=== PATIENT | female | born 1985 | race Caucasian/White ===

== ENCOUNTER 2020-09-26 11:46 | Outpatient (REF) | payer OTHER, SELFPAY ==
[2020-09-26 13:23] LABS: MANUAL DIFF FLAG NO
[2020-09-26 13:35] LABS: Basophils Percent Auto 0.5 % (0-2); Eosinophils Absolute Auto 0.1 X10*3/uL (0.0-0.4); Eosinophils Percent Auto 1.6 % (0-4); Hematocrit 36.1 % (37-47); Hemoglobin 11.7 g/dl (12.0-16.0); Imm Gran Abs Auto 0.02 X10*3/uL (0.00-0.03); Imm Gran Pct Auto 0.3 % (0.0-0.4); Lymphocytes Absolute Auto 1.6 X10*3/uL (1.2-4.9); Lymphocytes Percent Auto 20.3 % (20-40); Mean Corpuscular HGB Conc 32.4 g/dl (31.0-35.0); Mean Corpuscular Volume 95.5 fL (80-98); Mean Platelet Volume 8.8 fL (9.4-12.3); Monocytes Absolute Auto 0.3 X10*3/uL (0.1-1.2); Monocytes Percent Auto 4.1 % (2-11); Neutrophils Absolute Auto 5.8 X10*3/uL (2.0-8.3); Neutrophils Percent Auto 73.2 % (45-73); Platelet Count 427 X10*3/uL (160-400); Red Blood Count 3.78 X10*6/uL (4.20-5.50); Red Cell Distribution Width 13.7 % (11.0-16.0)
[2020-09-26 13:49] LABS: Estimated Average Glucose 105 mg/dL; Hemoglobin A1c % 5.3 %
[2020-09-26 14:00] LABS: Alanine Aminotransferase 10 U/L (0-31); Albumin Level 4.3 g/dL (3.5-5.0); Alkaline Phosphatase 73 U/L (39-117); Anion Gap 14 (12-20); Aspartate Amino Transferase 13 U/L (5-31); Bilirubin Total 0.5 mg/dL (0.0-1.0); Blood Urea Nitrogen 10 mg/dL (9-16); Calcium 8.5 mg/dL (8.4-10.2); Carbon Dioxide 26 mmol/L (22-29); Chloride 105 mmol/L (96-108); Cholesterol 177 mg/dL; Estimated Glomerular Filt Rate > 60; Glucose Random 84 mg/dL (60-115); HDL Cholesterol 60 mg/dL; LDL Cholesterol Calculated 101 mg/dl; Potassium 4.1 mmol/l (3.3-5.1); Sodium 141 mmol/L (135-145); Total Protein 7.2 g/dL (6.5-8.0); Triglycerides 80 mg/dL
[2020-09-27 09:22] LABS: Rubella IgG Antibody 1.47 index
[2020-09-29 08:30] LABS: HBS Num1 112.25 mIU/mL (0-7.99); ~Hepatitis B Surface Antibody REACTIVE (Nonreactive)
[2020-09-29 19:08] LABS: Rubeola IgG (Measles) >300.00 AU/mL
[2020-09-29 19:11] LABS: TS Negative Control Passed; TS Panel A 0; TS Panel B 0; TS Positive Control Passed; TSpotTB Negative (SeeBelow)
== END 2020-09-26 11:47 | disposition home or self-care (01) ==
LOC: HO.LAB 11:46
PROVIDERS: PCP Internal Medicine; Visit Provider Internal Medicine
DX: E28.2 Polycystic ovarian syndrome (principal); E66.01 Morbid (severe) obesity due to excess calories; R73.01 Impaired fasting glucose
CPT/HCPCS: 36415; 80053; 80061; 83036; 85025; 86481; 86706; 86735; 86762; 86765; 86787

== ENCOUNTER → 2020-10-07 09:03 | Outpatient (BNVA) | payer OTHER, SELFPAY | PROVIDERS: PCP Internal Medicine; Referring Provider Internal Medicine; Visit Provider Physician Assistant | DX: Z76.89 Persons encountering health services in other specified circumstances (principal) ==

== ENCOUNTER 2020-10-08 10:05 | Outpatient (REF) | payer OTHER, SELFPAY ==
[2020-10-08 15:59] LABS: CT PCR NOT DETECTED (Not Detect.); NG PCR NOT DETECTED (Not Detect.)
[2020-10-09 08:53] LABS: BV Int Neg Control Negative (Negative); BV Int Pos Control Positive (Positive)
== END 2020-10-08 10:06 | disposition home or self-care (01) ==
LOC: HO.LAB 10:05
PROVIDERS: Visit Provider Advanced Practice Midwife
DX: Z01.419 Encounter for gynecological examination (general) (routine) without abnormal findings (principal); Z20.2 Contact with and (suspected) exposure to infections with a predominantly sexual mode of transmission; E66.01 Morbid (severe) obesity due to excess calories; Z80.3 Family history of malignant neoplasm of breast; Z80.41 Family history of malignant neoplasm of ovary; Z97.5 Presence of (intrauterine) contraceptive device
CPT/HCPCS: 87480; 87491; 87510; 87591; 87660; 99395

== ENCOUNTER 2020-10-27 19:55 | Emergency (ER) | payer OTHER, SELFPAY ==
[2020-10-27 19:57] VITALS: BP 149/96; PULSE 112; RESP 15; TEMP 36.8; O2SAT 98; BMI 40.6
--- NOTE | 2020-10-27 20:36 | ED_ITS ---
HPI - Abdominal Pain General Chief Complaint: Abdominal Pain Stated Complaint: abdominal pain Time Seen by Provider: 10/27/20 20:36 Source: patient Mode of arrival: ambulatory Limitations: no limitations History of Present Illness HPI narrative: Urine chronic abdominal pain over 1 year duration status post cholecystectomy 3 years ago pain is mostly in the epigastric and right upper area going to the right lower without any nausea vomiting or diarrhea pain does not get worse after eating patient was seen with supervisor tumblers on plan to get ultrasound but not done yet MD elicited complaint: abdominal pain Pertinent past history: none Onset (ago): year(s) Pain Consistency: intermittent Location: RUQ and RLQ Severity: mild Quality: cramping Radiation: RUQ and RLQ Associated symptoms: nausea Related Data Previous Rx's Medication Instructions Recorded dicyclomine 20 mg PO QID PRN #20 tab 10/27/20 Allergies Allergy/AdvReac Type Severity Reaction Status Date / Time banana [BANANA] Allergy Unknown STOMACH Verified 10/08/20 10:17 PAINS metformin [METFORMIN] Allergy Unknown NAUSEA, Verified 10/08/20 10:17 DIARRHEA, stomach upset milk [MILK] Allergy Unknown CAN NOT Verified 10/08/20 10:17 TOLERATE Review of Systems Review of Systems REVIEW OF SYSTEMS: Pertinent positives and negatives are stated above in the history. GEN: no fevers, chills, fatigue HEENT: no nasal congestion, sore throat, ear pain NEURO: no headache, dizziness, focal weakness PULM: no cough, shortness of breath CV: no chest pain, palpitations, LE edema ABD: no vomiting, diarrhea : no dysuria, urgency, frequency SKIN: no rash ROS otherwise negative x 10 Physical Exam Vital Signs: Vital Signs: Last Vital Signs Temp 98.2 F 10/27/20 22:57 Pulse 84 10/27/20 22:57 Resp 16 10/27/20 22:57 BP 124/71 10/27/20 22:57 Pulse Ox 97 10/27/20 22:57 Body Mass Index 40.6 Appearance: Alert. Oriented X3. No acute distress. Eyes: Pupils equal, round and reactive to light. ENT: Pharynx normal. Neck: Normal inspection. Neck supple. CVS: Normal heart rate and rhythm. Pulses normal. Respiratory: No respiratory distress. Breath sounds normal. Abdomen: Soft and mild tenderness right upper quadrant and right mid quadrant no rebound tenderness no guarding no mass palpable no CVA tenderness. Skin: Skin warm and dry. Normal skin color. Normal skin turgor. Extremities: No lower extremity edema. Good range of movement Neuro: Oriented X 3. No motor deficit. No sensory deficit. MDM - Abdominal Pain MDM Narrative Medical decision making narrative: Patient has chronic abdominal pain CT scan negative for any acute pathology labs are stable discharge her home on [place] Differential Diagnosis Differential diagnosis: Likely abdominal pain Medical Records Attestation: I reviewed the patient's medical records. Lab Data Attestation: I reviewed the patient's lab results. Result diagrams: 10/27/20 21:10 10/27/20 21:10 Labs: Lab Results 10/27/20 10/27/20 Range/Units 21:10 21:10 WBC 8.5 (4.8-10.8) X10*3/uL RBC 3.55 L (4.20-5.50) X10*6/uL Hgb 11.2 L (12.0-16.0) g/dl Hct 33.1 L (37-47) % MCV 93.2 (80-98) fL MCH 31.5 (27.0-33.0) pg MCHC 33.8 (31.0-35.0) g/dl RDW 13.7 (11.0-16.0) % Plt Count 327 (160-400) X10*3/uL MPV 8.9 L (9.4-12.3) fL Immature Gran % (Auto) 0.2 (0.0-0.4) % Neut % (Auto) 67.4 (45-73) % Lymph % (Auto) 26.0 (20-40) % [place] % (Auto) 4.8 (2-11) % Eos % (Auto) 1.1 (0-4) % Baso % (Auto) 0.5 (0-2) % Lymph # (Auto) 2.2 (1.2-4.9) X10*3/uL [place] # (Auto) 0.4 (0.1-1.2) X10*3/uL Eos # (Auto) 0.1 (0.0-0.4) X10*3/uL Baso # (Auto) 0.0 (0.0-0.2) X10*3/uL Abs Immat Gran (auto) 0.02 (0.00-0.03) X10*3/uL Absolute Neuts (auto) 5.7 (2.0-8.3) X10*3/uL Absolute Nucleated RBC 0.000 (0.0-0.012) X10*3/uL Nucleated RBC % (auto) 0.0 (0.0-0.2) /100WBC Sodium 139 (135-145) mmol/L Potassium 3.5 (3.3-5.1) mmol/l Chloride 104 (96-108) mmol/L Carbon Dioxide 22 (22-29) mmol/L Anion Gap 17 (12-20) BUN 9 (9-16) mg/dL Creatinine 0.65 (0.5-1.4) mg/dL Estim Creat Clear Calc 145.9 Estimated GFR > 60 Random Glucose 80 (60-115) mg/dL Calcium 8.4 (8.4-10.2) mg/dL Total Bilirubin 0.2 (0.0-1.0) mg/dL Direct Bilirubin < 0.2 (0.0-0.5) mg/dL AST 14 (5-31) U/L ALT 8 (0-31) U/L Alkaline Phosphatase 68 (39-117) U/L Total Protein 6.9 (6.5-8.0) g/dL Albumin 4.1 (3.5-5.0) g/dL Lipase 19 (8-78) U/L Discharge Plan Discharge Clinical Impression: Irritable bowel syndrome, Abdominal pain Patient Disposition: Home, Self-Care Instructions: Irritable Bowel Syndrome (ED) Additional Instructions: Drink plenty of fluids and have fibers, follow up with supervisor tumblers Prescriptions: New dicyclomine 20 mg tablet 20 mg PO QID PRN (Reason: abdominal pain) Qty: 20 RF: 0 Interventions: ED Discharge Assessment Last Done: 10/27/20 22:58 Discharge Date/Time: 10/27/20 22:59 [facility] Past Medical History Medical History Abdominal pain WPW (Xjpbd-Kosxsprod-Xicqq syndrome) Surgical History Hx of cholecystectomy Family History Family History Mother Cardiac abnormality Social History Social History Alcohol intake: current Alcohol intake frequency: holidays/special occasions only Smoking Status: Never smoker Substance Use Type: Marijuana Advance Directives: No Advance Directives Information Provided: Yes Current occupational status: unemployed Gender identity: female
--- NOTE | 2020-10-27 20:43 | CT_ITS ---
EXAMINATION: CT ABDOMEN AND PELVIS WITHOUT CONTRAST CLINICAL INFORMATION: Chronic right-sided pain with question of inflammatory bowel disease or common bile duct stone. COMPARISON: Pelvic ultrasound 07/08/2020, HIDA scan 12/05/2014, abdominal ultrasound 11/24/2012. TECHNIQUE: Multidetector volumetric imaging was performed from the superior aspect of the liver through the pubic symphysis. Sagittal and coronal reformatted images were obtained on the technologist's workstation. This CT examination was performed using dose optimization techniques as appropriate, variously including the following: *Automated exposure control. *Adjustment of mA and/or kV according to patient size (this includes techniques or standardized protocols for targeted exams where dose is matched to indication/reason for exam; i.e. extremities or head). *Use of iterative reconstruction technique. DLP: 907 mGy-cm FINDINGS: LUNG BASES: The visualized lung bases are unremarkable. LIVER, GALLBLADDER, AND BILIARY TREE: The liver is normal in size, shape, and attenuation. No focal hepatic lesion or biliary ductal dilatation is present. Status post cholecystectomy. PANCREAS: Unremarkable. SPLEEN: Unremarkable. ADRENAL GLANDS: Unremarkable. KIDNEYS AND URETERS: The kidneys are normal in size, shape, and attenuation. No hydronephrosis, hydroureter, or calculi seen. No perinephric stranding. BLADDER: Unremarkable. GASTROINTESTINAL TRACT: The small and large bowel are unremarkable. There is some mild submucosal fat infiltration in the ascending colon which could be secondary to chronic inflammation but is a non-specific finding. The appendix is unremarkable. ABDOMINAL WALL: No significant hernia is appreciated. A tiny periumbilical hernia is seen containing only fat. LYMPH NODES: No retroperitoneal lymphadenopathy. VASCULAR: Unremarkable. PELVIC VISCERA: An IUD is present in an anteverted uterus. Normal-appearing bilateral ovaries are seen. No free intraperitoneal fluid or abnormal adnexal mass is seen. OSSEOUS STRUCTURES: Unremarkable. CT/CT abdomen pelvis wo con IMPRESSION: No significant abnormality.
[2020-10-27 21:16] LABS: MANUAL DIFF FLAG NO
[2020-10-27 21:19] LABS: Basophils Percent Auto 0.5 % (0-2); Eosinophils Absolute Auto 0.1 X10*3/uL (0.0-0.4); Eosinophils Percent Auto 1.1 % (0-4); Hematocrit 33.1 % (37-47); Hemoglobin 11.2 g/dl (12.0-16.0); Imm Gran Abs Auto 0.02 X10*3/uL (0.00-0.03); Imm Gran Pct Auto 0.2 % (0.0-0.4); Lymphocytes Absolute Auto 2.2 X10*3/uL (1.2-4.9); Mean Corpuscular HGB Conc 33.8 g/dl (31.0-35.0); Mean Corpuscular Hemoglobin 31.5 pg (27.0-33.0); Mean Corpuscular Volume 93.2 fL (80-98); Mean Platelet Volume 8.9 fL (9.4-12.3); Monocytes Absolute Auto 0.4 X10*3/uL (0.1-1.2); Monocytes Percent Auto 4.8 % (2-11); Neutrophils Absolute Auto 5.7 X10*3/uL (2.0-8.3); Neutrophils Percent Auto 67.4 % (45-73); Platelet Count 327 X10*3/uL (160-400); Red Blood Count 3.55 X10*6/uL (4.20-5.50); Red Cell Distribution Width 13.7 % (11.0-16.0); White Blood Count 8.5 X10*3/uL (4.8-10.8)
[2020-10-27 21:44] LABS: Alanine Aminotransferase 8 U/L (0-31); Albumin Level 4.1 g/dL (3.5-5.0); Alkaline Phosphatase 68 U/L (39-117); Anion Gap 17 (12-20); Aspartate Amino Transferase 14 U/L (5-31); Bilirubin Direct < 0.2 mg/dL (0.0-0.5); Bilirubin Total 0.2 mg/dL (0.0-1.0); Blood Urea Nitrogen 9 mg/dL (9-16); Calcium 8.4 mg/dL (8.4-10.2); Carbon Dioxide 22 mmol/L (22-29); Chloride 104 mmol/L (96-108); Creatinine Clr Calc Pharmacy 145.9; Estimated Glomerular Filt Rate > 60; Glucose Random 80 mg/dL (60-115); Lipase 19 U/L (8-78); Potassium 3.5 mmol/l (3.3-5.1); Sodium 139 mmol/L (135-145); Total Protein 6.9 g/dL (6.5-8.0)
[2020-10-27] MEDS: Dicyclomine HCl 10 MG CAPSULE 20 MG PO (21:58)
[2020-10-27 22:57] VITALS: BP 124/71; PULSE 84; RESP 16; TEMP 36.8; O2SAT 97
== END 2020-10-27 22:59 | disposition home or self-care (01) ==
PROVIDERS: Emergency Provider Internal Medicine; PCP Internal Medicine
DX: K58.9 Irritable bowel syndrome, unspecified (principal); R10.11 Right upper quadrant pain; R10.31 Right lower quadrant pain; Z90.49 Acquired absence of other specified parts of digestive tract
CPT/HCPCS: 36415; 74176; 80048; 80076; 83690; 85025; 99283; 99284

== ENCOUNTER → 2020-11-12 08:17 | Outpatient (BNVA) | payer OTHER, SELFPAY | PROVIDERS: PCP Internal Medicine; Visit Provider Physician Assistant | DX: Z76.89 Persons encountering health services in other specified circumstances (principal) ==

== ENCOUNTER 2020-11-26 14:30 | Outpatient (REF) | payer OTHER, SELFPAY | END 2020-11-26 14:31 | disposition home or self-care (01) | LOC: HO.LAB 14:30 | PROVIDERS: PCP Internal Medicine; Visit Provider Internal Medicine | DX: Z20.822 Contact with and (suspected) exposure to COVID-19 (principal) | CPT/HCPCS: 36415; C9803; U0003 ==

== ENCOUNTER → 2021-04-01 09:47 | Outpatient (BNVA) | payer OTHER, SELFPAY | PROVIDERS: PCP Internal Medicine; Visit Provider Physician Assistant ==

== ENCOUNTER 2021-04-21 11:18 | Outpatient (REF) | payer OTHER, SELFPAY ==
[2021-04-21 12:11] LABS: MANUAL DIFF FLAG NO
[2021-04-21 12:19] LABS: Basophils Percent Auto 0.3 % (0-2); Eosinophils Absolute Auto 0.2 X10*3/uL (0.0-0.4); Hematocrit 35.5 % (37-47); Hemoglobin 11.8 g/dl (12.0-16.0); Imm Gran Abs Auto 0.03 X10*3/uL (0.00-0.03); Imm Gran Pct Auto 0.3 % (0.0-0.4); Lymphocytes Absolute Auto 1.9 X10*3/uL (1.2-4.9); Lymphocytes Percent Auto 20.9 % (20-40); Mean Corpuscular HGB Conc 33.2 g/dl (31.0-35.0); Mean Corpuscular Hemoglobin 31.6 pg (27.0-33.0); Mean Corpuscular Volume 94.9 fL (80-98); Mean Platelet Volume 9.1 fL (9.4-12.3); Monocytes Absolute Auto 0.4 X10*3/uL (0.1-1.2); Monocytes Percent Auto 4.9 % (2-11); Neutrophils Absolute Auto 6.4 X10*3/uL (2.0-8.3); Neutrophils Percent Auto 71.6 % (45-73); Platelet Count 344 X10*3/uL (160-400); Red Blood Count 3.74 X10*6/uL (4.20-5.50); White Blood Count 8.9 X10*3/uL (4.8-10.8)
[2021-04-21 13:09] LABS: Thyroid Stimulating Hormone 0.84 uIU/mL (0.32-4.0)
[2021-04-21 13:49] LABS: Alanine Aminotransferase 15 U/L (0-31); Albumin Level 4.5 g/dL (3.5-5.0); Alkaline Phosphatase 69 U/L (39-117); Anion Gap 15 (12-20); Aspartate Amino Transferase 27 U/L (5-31); Blood Urea Nitrogen 6 mg/dL (9-16); Calcium 9.1 mg/dL (8.4-10.2); Carbon Dioxide 24 mmol/L (22-29); Chloride 102 mmol/L (96-108); Cholesterol 199 mg/dL; Estimated Glomerular Filt Rate > 60; Glucose Random 83 mg/dL (60-115); HDL Cholesterol 43 mg/dL; LDL Cholesterol Calculated 137 mg/dl; Potassium 3.9 mmol/L (3.3-5.1); Sodium 137 mmol/L (135-145); Total Protein 7.4 g/dL (6.5-8.0); Triglycerides 98 mg/dL
== END 2021-04-21 11:19 | disposition home or self-care (01) ==
LOC: HO.LAB 11:18
PROVIDERS: Absent Provider Advanced Practice Midwife; PCP Internal Medicine; Referring Provider Physician Assistant; Visit Provider Internal Medicine
DX: D50.8 Other iron deficiency anemias (principal); I10 Essential (primary) hypertension; R10.11 Right upper quadrant pain; R73.01 Impaired fasting glucose; R74.01 Elevation of levels of liver transaminase levels
CPT/HCPCS: 36415; 80053; 80061; 84443; 85025

== ENCOUNTER 2021-05-05 09:36 | Outpatient (REF) | payer OTHER, SELFPAY ==
--- NOTE | ~2021-05-05 | US_ITS ---
EXAMINATION: US COMPLETE ABDOMEN WITH LIVER ELASTOGRAPHY CLINICAL INFORMATION: Obesity COMPARISON: Previous CT of the abdomen and pelvis October 2020 TECHNIQUE: Real-time imaging of the abdominal viscera. Noninvasive ultrasound liver fibrosis assessment is performed using Kelly ElastPQ point quantification shear wave elastography (pSWE) with a C5-2 MHz transducer. Multiple elastography samples are obtained. FINDINGS: PANCREAS: Normal. ABDOMINAL AORTA: The proximal, middle, and distal aortic segments are normal in caliber. INFERIOR VENA CAVA: Visualized portions are normal. LIVER: Liver echotexture is slightly increased. The liver demonstrates normal size and contour. No focal lesion or intrahepatic biliary duct dilatation. The right lobe measures 16 cm in length. The left lobe measures 12 cm in length. Portal flow is normal/hepatopedal Shear wave liver elastography median stiffness is 1.55 m/s (reference: normal median stiffness is 1.3 m/s or less). IQR/median stiffness to assess sampling precision is 0.1 (reference: good quality data set is IQR/median stiffness of 0.15 or less). GALLBLADDER: Surgically removed COMMON BILE DUCT: Normal in caliber measuring 0.4 cm in diameter. RIGHT KIDNEY: Normal. No hydronephrosis. No renal calculi or focal parenchymal lesions. The kidney measures 11.5 cm in maximum dimension. LEFT KIDNEY: Normal. No hydronephrosis. No renal calculi or focal parenchymal lesions. The kidney measures 11.8 cm in maximum dimension. SPLEEN: Normal. The spleen measures 9.4 cm in maximum dimension. FREE FLUID: None. US/US abdomen comp w elastography IMPRESSION: 1. Impression: Echogenic liver probably representing fatty infiltration. Postcholecystectomy. 2. Liver elastography: Adequate sampling. In the absence of other known clinical signs, rules out compensated advanced chronic liver disease. REFERENCE: Society of Radiologists in Ultrasound Liver Stiffness Thresholds (2020): LIVER STIFFNESS THRESHOLDS: *Liver Stiffness equal or less than 1.3 m/s: High probability of being normal. *Liver Stiffness less than 1.7 m/s: In the absence of other known clinical signs, rules out compensated advanced chronic liver disease. *Liver Stiffness 1.7-2.1 m/s: Suggestive of compensated advanced chronic liver disease but need further test for confirmation. *Liver Stiffness over 2.1 m/s: Rules in compensated advanced chronic liver disease. *Liver Stiffness over 2.4 m/s: Suggestive of clinically significant portal hypertension. QUALITY OF DATA SET: *IQR/Median value equal or less than 0.15 implies a quality data set. *IQR/Median value over 0.15 implies a poor quality data set. SIGNIFICANT CHANGE FROM PRIOR EXAM: Significant change if liver stiffness measurement is 10% or greater from prior exam. OTHER CONSIDERATIONS: The stage of liver fibrosis may be overestimated in the setting of acute hepatitis, liver inflammation, elevated liver function tests, hepatic vascular congestion, obstructive cholestasis, non-fasting state, and infiltrative diseases such as amyloidosis and lymphoma. In some patients with NAFLD, the liver stiffness thresholds for compensated advanced chronic liver disease may be lower. In causes other than viral hepatitis and NAFLD, liver stiffness thresholds are not well established.
== END 2021-05-05 09:37 | disposition home or self-care (01) ==
LOC: HO.US 09:36
PROVIDERS: Visit Provider Physician Assistant
DX: R10.9 Unspecified abdominal pain (principal); E66.3 Overweight
CPT/HCPCS: 76705; 76981

== ENCOUNTER 2021-10-12 09:23 | Outpatient (REF) | payer OTHER, SELFPAY ==
[2021-10-12 16:06] LABS: CT PCR NOT DETECTED (Not Detect.); NG PCR NOT DETECTED (Not Detect.)
[2021-10-13 09:39] LABS: BV Int Neg Control Negative (Negative); BV Int Pos Control Positive (Positive)
== END 2021-10-12 09:24 | disposition home or self-care (01) ==
LOC: HO.LAB 09:23
PROVIDERS: PCP Internal Medicine; Visit Provider Advanced Practice Midwife
DX: Z01.419 Encounter for gynecological examination (general) (routine) without abnormal findings (principal); Z20.2 Contact with and (suspected) exposure to infections with a predominantly sexual mode of transmission; E66.01 Morbid (severe) obesity due to excess calories; Z80.41 Family history of malignant neoplasm of ovary; Z97.5 Presence of (intrauterine) contraceptive device
CPT/HCPCS: 87480; 87491; 87510; 87591; 87660

== ENCOUNTER 2021-10-22 14:16 | Outpatient (REF) | payer OTHER, SELFPAY ==
[2021-10-22 14:47] LABS: MANUAL DIFF FLAG NO
[2021-10-22 14:52] LABS: Basophils Absolute Auto 0.1 X10*3/uL (0.0-0.2); Basophils Percent Auto 0.6 % (0-2); Eosinophils Absolute Auto 0.2 X10*3/uL (0.0-0.4); Hematocrit 39.2 % (37.0-47.0); Imm Gran Abs Auto 0.02 X10*3/uL (0.00-0.03); Imm Gran Pct Auto 0.3 % (0.0-0.4); Lymphocytes Absolute Auto 1.9 X10*3/uL (1.2-4.9); Lymphocytes Percent Auto 23.8 % (20-40); Mean Corpuscular HGB Conc 33.2 g/dl (31.0-35.0); Mean Corpuscular Hemoglobin 30.3 pg (27.0-33.0); Mean Corpuscular Volume 91.4 fL (80.0-98.0); Monocytes Absolute Auto 0.4 X10*3/uL (0.1-1.2); Monocytes Percent Auto 5.1 % (2-11); Neutrophils Absolute Auto 5.3 x10*3/uL (2.0-8.3); Neutrophils Percent Auto 68.2 % (45-73); Platelet Count 489 X10*3/uL (160-400); Red Blood Count 4.29 X10*6/uL (4.20-5.50); Red Cell Distribution Width 14.9 % (11.0-16.0); White Blood Count 7.8 X10*3/uL (4.8-10.8)
[2021-10-22 15:05] LABS: Alanine Aminotransferase 14 U/L (0-31); Albumin Level 4.5 g/dL (3.5-5.0); Alkaline Phosphatase 86 U/L (39-117); Anion Gap 15 (12-20); Aspartate Amino Transferase 15 U/L (5-31); Bilirubin Total 0.3 mg/dL (0.0-1.0); Blood Urea Nitrogen 8 mg/dL (9-16); Calcium 9.4 mg/dL (8.4-10.2); Carbon Dioxide 27 mmol/L (22-29); Chloride 104 mmol/L (96-108); Cholesterol 174 mg/dL; Estimated Glomerular Filt Rate > 60; Glucose Random 98 mg/dL (60-115); HDL Cholesterol 42 mg/dL; LDL Cholesterol Calculated 113 mg/dl; Potassium 3.9 mmol/L (3.3-5.1); Sodium 142 mmol/L (135-145); Total Protein 7.7 g/dL (6.5-8.0); Triglycerides 95 mg/dL
[2021-10-22 15:25] LABS: Free T4 (Free Thyroxine) 1.16 ng/dL (0.71-1.85); Thyroid Stimulating Hormone 0.73 uIU/mL (0.32-4.0)
[2021-10-24 01:57] LABS: DHEA Sulfate 422 mcg/dL (23-266)
[2021-10-24 19:15] LABS: TS Negative Control Passed; TS Panel A 0; TS Panel B 0; TS Positive Control Passed; TSpotTB Negative (Negative)
[2021-10-28 14:27] LABS: Testosterone, Total 37 ng/dL (2-45)
== END 2021-10-22 14:17 | disposition home or self-care (01) ==
LOC: HO.LAB 14:16
PROVIDERS: PCP Internal Medicine; Visit Provider Internal Medicine
DX: Z00.00 Encounter for general adult medical examination without abnormal findings (principal); Z11.1 Encounter for screening for respiratory tuberculosis; R00.0 Tachycardia, unspecified; L68.8 Other hypertrichosis; I10 Essential (primary) hypertension
CPT/HCPCS: 36415; 80053; 80061; 82627; 84403; 84439; 84443; 84481; 85025; 86481

== ENCOUNTER → 2022-02-04 09:38 | Outpatient (BNVA) | payer OTHER, SELFPAY | PROVIDERS: Visit Provider Advanced Practice Midwife | DX: E28.2 Polycystic ovarian syndrome (principal); E66.01 Morbid (severe) obesity due to excess calories; Z79.899 Other long term (current) drug therapy; Z97.5 Presence of (intrauterine) contraceptive device; Z30.09 Encounter for other general counseling and advice on contraception; Z30.011 Encounter for initial prescription of contraceptive pills | CPT/HCPCS: Q3014 ==

== ENCOUNTER → 2022-02-15 15:32 | Outpatient (BNVA) | payer OTHER, SELFPAY | PROVIDERS: PCP Internal Medicine; Referring Provider Internal Medicine; Visit Provider Internal Medicine Cardiovascular Disease | DX: R00.0 Tachycardia, unspecified (principal); R00.2 Palpitations | CPT/HCPCS: 93005; 99202 ==

== ENCOUNTER → 2022-02-22 08:32 | Outpatient (REF) | payer OTHER, SELFPAY ==
--- NOTE | 2022-02-22 08:39 | CA_ITS ---
Transthoracic Echocardiogram Patient (Last, First, Middle): Kendra Burch L Gender: Female Date of : 1985 Age: 36 Procedure Date: 02/22/2022 Procedure Type: Transthoracic Echocardiogram Location: OP Height: 162.56 cm Weight: 115.67 kg BSA: 2.17 m2 Heart Rate: bpm BP: 140 / 100 mmHg Asphalt Paving Machine Operator: Referring MD: Chu Quintero MD Symptoms: R00.0 - Tachycardia, unspecified Study Quality: Fair ECG Rhythm: Sinus Conclusions: - Normal left ventricular size, thickness, systolic function, and wall motion. The visually estimated ejection fraction is between 55-60%. Diastolic function is normal for age. - Normal right ventricular cavity size and systolic function. Findings Left Ventricle Normal left ventricular size, thickness, systolic function, and wall motion. The visually estimated ejection fraction is between 55-60%. Diastolic function is normal for age. Right Ventricle Normal right ventricular cavity size and systolic function. Atria Both atria are normal in size. Aortic Valve Normal aortic valve structure and function. There is no aortic valve stenosis. There is no aortic valve regurgitation. Mitral Valve Normal mitral valve structure and function. There is no mitral valve regurgitation. There is no mitral valve stenosis. Pulmonic Valve Normal pulmonic valve structure and function. There is no pulmonic valve regurgitation. Tricuspid Valve Normal tricuspid valve structure and function. There is no tricuspid valve regurgitation. Normal right atrial pressure. There is no evidence of pulmonary hypertension. Great Vessels All visible segments of the aorta are normal in size. The visualized portions of the pulmonary artery and branches are normal. Venous The inferior vena cava is normal in size and collapses greater than 50% with inspiration. Pericardium/Pleural There is no evidence of pericardial effusion. Prior Study Comparison No prior study available for comparison. Measurements 2D Linear Measurements IVSd: 0.87 0.6-0.9/0.6-1.0 cm LVIDd: 3.92 3.9-5.3/4.2-5.9 cm LVIDd Index: 1.81 2.4-3.2/2.2-3.1 cm/m2 LVIDs: 2.51 2.0-3.6 cm LVPWd: 0.84 0.7-1.1 cm LA Diam: 3.70 2.7-3.8/3.0-4.0 cm LAIDs Index: 1.71 1.5-2.3 cm/m2 LV Mass: 123.24 67-162/88-224 g LV Mass Index: 56.79 43-95/49-115 g/m2 LVOT Diam: 2.00 3.0+(-)1.3 cm 2D Systolic Function EF 4C: 53.70 >55% EF 2C: 60.30 >55% EF BiP: 57.00 >55% Mitral Valve MV Pk E: 0.73 MV PK A: 0.68 MV Decel Time: 136.00 E/A: 1.10 E'Lateral: 9.36 E'Medial: 9.03 E/E' Med: 8.10 E/E' Lat: 7.80 PHT: 40.00 MVA PHT: 5.50 Decel Liberty: 5.34 Aortic Valve AoV Pk Glenn: 1.43 AoV Mn Glenn: 1.02 AoV VTI: 0.28 AoV Pk Grad: 8.00 Aov Mn Grad: 5.00 MANNY Cont.VTI: 2.39 LVOT LVOT Pk Glenn: 0.99 LVOT Mn Glenn: 0.77 LVOT VTI: 0.21 LVOT Pk Grad: 4.00 LVOT Mn Grad: 3.00 LVOT Diam: 2.00 LVOT Area: 3.14 Diastolic Function MV Pk E: 0.73 MV Pk A: 0.68 E/A: 1.10 E'Medial: 9.03 E/E' Med: 8.10 E' Laterial: 9.36 E/E' Lat: 7.80 Tricuspid Valve TR Pk Glenn: 1.94 TR Pk Grad: 15.00 RA Press: 3.00 RVSP: 18.00 Great Vessels Aorta Sinus of Valsalva: 3.00 2.0-3.5 cm Ao Asc: 3.20 2.1-3.4 cm Updated in Other Vendor System with Status of Final Chu Quintero MD electronically signed on 02/24/2022 12:45:16 PM with status of Final
== END ==
LOC: HO.CARD 08:32
PROVIDERS: PCP Internal Medicine; Visit Provider Internal Medicine Cardiovascular Disease
DX: R00.0 Tachycardia, unspecified (principal)
CPT/HCPCS: 93306

== ENCOUNTER → 2022-05-18 07:40 | Outpatient (REF) | payer OTHER, SELFPAY ==
--- NOTE | 2022-05-18 07:40 | HM_ITS ---
Conclusion: 1. Patient was monitored for total period of 5 days and 18 hours 2. Baseline was normal sinus rhythm with average heart of 89 beats per minute 3. No significant pauses noted 4. Few episodes of Mobitz type 1 second-degree AV block noted during pharmaceutical plant operator hours 5. Rare PACs noted with total burden of 0.06% 6. No patient reported events MTDD
== END ==
LOC: HO.CARD 07:40
PROVIDERS: Visit Provider Internal Medicine Cardiovascular Disease
DX: R00.0 Tachycardia, unspecified (principal)
CPT/HCPCS: 93242

== ENCOUNTER → 2022-05-24 12:50 | Outpatient (BNVA) | payer OTHER, SELFPAY | PROVIDERS: PCP Internal Medicine; Referring Provider Internal Medicine; Visit Provider Internal Medicine Cardiovascular Disease | DX: R00.0 Tachycardia, unspecified (principal); R00.2 Palpitations | CPT/HCPCS: 93005; 99212 ==

== ENCOUNTER 2022-06-11 09:39 | Outpatient (REF) | payer OTHER, SELFPAY ==
[2022-06-11 15:08] LABS: CT PCR NOT DETECTED (Not Detect.); NG PCR NOT DETECTED (Not Detect.)
[2022-06-12 11:47] LABS: BV Int Neg Control Negative (Negative); BV Int Pos Control Positive (Positive)
== END 2022-06-11 09:40 | disposition home or self-care (01) ==
LOC: HO.LAB 09:39
PROVIDERS: Visit Provider Advanced Practice Midwife
DX: Z30.432 Encounter for removal of intrauterine contraceptive device (principal); Z20.2 Contact with and (suspected) exposure to infections with a predominantly sexual mode of transmission; E66.01 Morbid (severe) obesity due to excess calories; E28.2 Polycystic ovarian syndrome
CPT/HCPCS: 58301; 87480; 87491; 87510; 87591; 87660; 99212

== ENCOUNTER 2022-10-26 11:08 | Outpatient (REF) | payer OTHER, SELFPAY ==
[2022-10-26 14:42] LABS: Estimated Average Glucose 120 mg/dL; Hemoglobin A1c % 5.8 %
[2022-10-26 14:53] LABS: Alanine Aminotransferase 11 U/L (0-31); Albumin Level 4.2 g/dL (3.5-5.0); Alkaline Phosphatase 110 U/L (39-117); Anion Gap 12 (12-20); Aspartate Amino Transferase 14 U/L (5-31); Bilirubin Total 0.4 mg/dL (0.0-1.0); Blood Urea Nitrogen 8 mg/dL (9-16); Calcium 9.2 mg/dL (8.4-10.2); Carbon Dioxide 25 mmol/L (22-29); Chloride 106 mmol/L (96-108); Cholesterol 187 mg/dL; Estimated Glomerular Filt Rate > 60; Glucose Fasting 96 mg/dL (60-99); HDL Cholesterol 32 mg/dL; LDL Cholesterol Calculated 135 mg/dl; Potassium 4.6 mmol/L (3.3-5.1); Sodium 138 mmol/L (135-145); Total Protein 7.1 g/dL (6.5-8.0); Triglycerides 104 mg/dL
== END 2022-10-26 11:09 | disposition home or self-care (01) ==
LOC: HO.10HDL 11:08
PROVIDERS: Visit Provider Internal Medicine
DX: E28.2 Polycystic ovarian syndrome (principal); I10 Essential (primary) hypertension; R00.0 Tachycardia, unspecified
CPT/HCPCS: 36415; 80053; 80061; 83036

== ENCOUNTER 2022-11-22 13:00 | Outpatient (REF) | payer OTHER, SELFPAY ==
--- NOTE | ~2022-11-22 | US_ITS ---
EXAMINATION: US COMPLETE ABDOMEN WITH LIVER ELASTOGRAPHY CLINICAL INFORMATION: Right upper quadrant pain COMPARISON: None. TECHNIQUE: Real-time imaging of the abdominal viscera. Noninvasive ultrasound liver fibrosis assessment is performed using Kelly ElastPQ point quantification shear wave elastography (2D-SWE) with a C5-2 MHz transducer. Multiple elastography samples are obtained. FINDINGS: PANCREAS: The pancreas is obscured by overlying gas. ABDOMINAL AORTA: The proximal, middle, and distal aortic segments are normal in caliber. INFERIOR VENA CAVA: Visualized portions are normal. LIVER: The liver demonstrates normal size, contour and increased echogenicity. No focal lesion or intrahepatic biliary duct dilatation. The right lobe measures 15.1 cm in length. The left lobe measures 10.6 cm in length. Portal flow is hepatopedal Shear wave liver elastography median stiffness is 1.69 m/s (reference: normal median stiffness is 1.3 m/s or less). IQR/median stiffness to assess sampling precision is 0.15 (reference: good quality data set is IQR/median stiffness of 0.15 or less). GALLBLADDER: The gallbladder has been surgically removed. COMMON BILE DUCT: Normal in caliber measuring 0.2 cm in diameter. RIGHT KIDNEY: Normal. No hydronephrosis. No renal calculi or focal parenchymal lesions. The kidney measures 11.0 cm in maximum dimension. LEFT KIDNEY: Normal. No hydronephrosis. No renal calculi or focal parenchymal lesions. The kidney measures 12.0 cm in maximum dimension. SPLEEN: Normal. The spleen measures 9.6 cm in maximum dimension. FREE FLUID: None. US/US abdomen comp w elastography IMPRESSION: 1. Diffuse hepatic steatosis without focal lesion. Rest of the abdominal ultrasound is unremarkable. 2. Liver elastography: Median liver stiffness measures 1.69 corresponding to cACLD (ruled out) REFERENCE: Society of Radiologists in Ultrasound Liver Stiffness Thresholds (2019): LIVER STIFFNESS THRESHOLDS: *Liver Stiffness equal or less than 1.3 m/s: High probability of being normal. *Liver Stiffness less than 1.7 m/s: In the absence of other known clinical signs, rules out compensated advanced chronic liver disease. *Liver Stiffness 1.7-2.1 m/s: Suggestive of compensated advanced chronic liver disease but need further test for confirmation. *Liver Stiffness over 2.1 m/s: Rules in compensated advanced chronic liver disease. *Liver Stiffness over 2.4 m/s: Suggestive of clinically significant portal hypertension. QUALITY OF DATA SET: *IQR/Median value equal or less than 0.15 implies a quality data set. *IQR/Median value over 0.15 implies a poor quality data set. SIGNIFICANT CHANGE FROM PRIOR EXAM: Significant change if liver stiffness measurement is 10% or greater from prior exam. OTHER CONSIDERATIONS: The stage of liver fibrosis may be overestimated in the setting of acute hepatitis, liver inflammation, elevated liver function tests, hepatic vascular congestion, obstructive cholestasis, non-fasting state, and infiltrative diseases such as amyloidosis and lymphoma. In some patients with NAFLD, the liver stiffness thresholds for compensated advanced chronic liver disease may be lower. In causes other than viral hepatitis and NAFLD, liver stiffness thresholds are not well established.
== END 2022-11-22 13:01 | disposition home or self-care (01) ==
LOC: HO.US 13:00
PROVIDERS: Visit Provider Internal Medicine
DX: R10.11 Right upper quadrant pain (principal)
CPT/HCPCS: 76705; 76981

== ENCOUNTER 2023-04-30 13:50 | Emergency (ER) | payer OTHER, SELFPAY ==
[2023-04-30 13:53] VITALS: BP 151/103; PULSE 102; RESP 20; TEMP 36.4; O2SAT 97; BMI 44.6
--- NOTE | 2023-04-30 14:06 | ED.ANXIETY ---
HPI - Anxiety General Chief Complaint: Anxiety Stated Complaint: sent by crisis, panic attack Time Seen by Provider: 04/30/23 14:06 Source: patient Mode of arrival: ambulatory Limitations: no limitations History of Present Illness HPI narrative: Patient is a 37-year-old female with history of PCOS, anxiety, and depression presenting to the emergency department after acute anxiety attack. States symptoms have mostly resolved since arriving to the ED but has had multiple attacks this week leaving her feeling overwhelmed. She reports that she was previously on medication for anxiety and depression in the past, but has been off of this medication for nearly a year. States I probably should have stayed on the medication. Symptoms are interfering with her work. She sees a therapist regularly but her therapist has been out of the office for the past 3 weeks and does not know when they will return. She denies any suicidal or homicidal ideation, denies any visual or auditory hallucinations. She denies any chest pain, dyspnea, abdominal pain, or other physical complaints. MD complaint: anxiety Onset (ago): hour(s) Symptoms: dyspnea, chest pain and palpitations Severity: severe Quality: improving Place: home History of similar episodes: Yes Provoking factors: emotional stress and other (therapist unavailable) Associated symptoms: denies other symptoms Related Data Home Medications Medication Instructions Recorded Confirmed cyclobenzaprine 5 mg tablet 5 mg PO TID PRN Muscle Spasm 02/15/22 04/30/23 metoprolol succinate 100 mg 100 mg PO DAILY 02/15/22 04/30/23 tablet,extended release 24 hr trazodone 50 mg tablet 50 mg PO BEDTIME PRN Insomnia 04/30/23 04/30/23 Allergies Allergy/AdvReac Type Severity Reaction Status Date / Time banana [BANANA] Allergy Unknown STOMACH Verified 04/30/23 13:56 PAINS metformin [METFORMIN] Allergy Unknown NAUSEA, Verified 04/30/23 13:56 DIARRHEA, stomach upset milk [MILK] Allergy Unknown CAN NOT Verified 04/30/23 13:56 TOLERATE Review of Systems Review of Systems: As per HPI. Yes all other systems are reviewed and are negative Constitutional: Constitutional: Reports as per HPI PMF Past Medical History Medical History Abdominal pain WPW (Yyyzt-Jagksiwky-Oelml syndrome) Surgical History Hx of cholecystectomy Family History Family History Mother Cardiac abnormality Maternal Aunt Hx of breast cancer History of colon cancer History of ovarian cancer Social History Social History Household Members Other:: alone Alcohol intake: current Alcohol intake frequency: holidays/special occasions only Substance Use Type: Marijuana Advance Directives: No Advance Directives Information Provided: No Current occupational status: unemployed Gender identity: Female Physical Exam Vital Signs: Vital Signs: Last Vital Signs Temp 97.6 F 04/30/23 13:53 Pulse 102 H 04/30/23 13:53 Resp 20 04/30/23 13:53 BP 151/103 H 04/30/23 13:53 Pulse Ox 97 04/30/23 13:53 O2 Del Method Room Air 04/30/23 13:53 BMI result Body Mass Index 44.6 Vital signs have been reviewed and appear to be correct. Blood pressure elevated. Heart rate mildly tachycardic. Respiratory rate normal. Temperature normal. Oxygen saturation normal. Const: General: cooperative, healthy appearing and no acute distress Orientation/consciousness: oriented to person, oriented to place, oriented to time and patient oriented x3 Limitations: no limitations HEENT: Head: Yes normocephalic and Yes atraumatic Ears: external ears normal General nose exam: Normal external nose present Face and sinus: Yes face symmetric Mouth: oropharynx normal and moist mucous membranes Throat: Yes uvula midline Eyes: Pupils: Equal, round and reactive pupils present Neck: Neck: Yes normal visual inspection and Yes supple Resp: Effort & Inspection: normal respiratory effort and able to speak in complete sentences Auscultation: clear to auscultation bilaterally Cardio: Rate: regular rate Rhythm: regular rhythm Heart sounds: S1 normal heart sound present and S2 normal heart sound present GI: Palpation (GI): Soft to palpation and nontender Auscultation: normoactive bowel sounds : General: Yes no CVA tenderness Back/Spine/Pelvis: Back: no CVA tenderness Skin: General skin exam: elasticity normal and turgor normal Neuro: General: oriented to person, oriented to place, oriented to time, patient oriented x3, moves all extremities, no focal motor deficits and CN's II-XI intact bilaterally Cranial nerves: Yes Equal, round and reactive pupils present Cognition (Neuro): normal cognition Extrem: General: Yes full ROM, Yes no pedal edema and Yes no calf tenderness Psych: Appearance: well kempt Mental Status: mental status grossly normal Speech and movement: Normal speech and movement present Affect: Sad affect present and Anxious affect present Attitude: cooperative Thought process: Normal thought process present Thought content: Normal thought content present, suicidality, no homicidality, no hallucinations and Depressive thoughts present Insight: Good insight present (Psych) Judgement: Good judgement present (Psych) Course Course Course Narrative: 16:53 Critical mag of 1.4 received from lab, ordered PO magnesium. Labs otherwise unremarkable, will medically clear for Care team eval and place on physician observation. Medications Administered Discontinued Medications Generic Name Dose Route Start Last Admin Trade Name Freq PRN Reason Stop Dose Admin Magnesium Oxide 400 mg 04/30/23 16:44 04/30/23 16:58 Magnesium Oxide 400 Mg Tablet PO 04/30/23 16:45 400 mg ONCE ONE Administration Medical Decision Making Medical Decision Making [facility] Narrative: Patient is a 37-year-old female with history of PCOS, anxiety, and depression presenting to the emergency department after acute anxiety attack. On exam patient is awake, A+Ox3, tearful and cooperative with good insight, LS CTA, abd soft and nontender. Differential includes anxiety, depression, somatization disorder. Will obtain labs, UA, ASA and Tylenol levels, refer to Care team once medically cleared. Differential Diagnosis Differential Diagnoses: The differential diagnosis associated with the presentation includes As above. Admission/Observation Consideration of admission/observation: Escalation of care including admission/observation considered Lab Data [facility] Lab Attestation statement: I reviewed the patient's lab results. 04/30/23 15:50 04/30/23 15:50 Labs: Lab Results 04/30/23 04/30/23 04/30/23 Range/Units 15:49 15:49 15:50 WBC 9.2 (4.8-10.8) X10*3/uL RBC 4.42 (4.20-5.50) X10*6/uL Hgb 12.5 (12.0-16.0) g/dl Hct 37.7 (37.0-47.0) % MCV 85.3 (80.0-98.0) fL MCH 28.3 (27.0-33.0) pg MCHC 33.2 (31.0-35.0) g/dl RDW 16.6 H (11.0-16.0) % Plt Count 412 H (160-400) X10*3/uL MPV 8.5 L (9.4-12.3) fL Immature Gran % (Auto) 0.2 (0.0-0.4) % Neut % (Auto) 76.9 H (45-73) % Lymph % (Auto) 17.8 L (20-40) % Mcnairy % (Auto) 3.7 (2-11) % Eos % (Auto) 0.9 (0-4) % Baso % (Auto) 0.5 (0-2) % Lymph # (Auto) 1.6 (1.2-4.9) X10*3/uL [place] # (Auto) 0.3 (0.1-1.2) X10*3/uL Eos # (Auto) 0.1 (0.0-0.4) X10*3/uL Baso # (Auto) 0.1 (0.0-0.2) X10*3/uL Abs Immat Gran (auto) 0.02 (0.00-0.03) X10*3/uL Absolute Neuts (auto) 7.1 (2.0-8.3) x10*3/uL Absolute Nucleated RBC 0.000 (0.0-0.012) X10*3/uL Nucleated RBC % (auto) 0.0 (0.0-0.2) /100WBC Sodium (135-145) mmol/L Potassium (3.3-5.1) mmol/L Chloride (96-108) mmol/L Carbon Dioxide (22-29) mmol/L Anion Gap (12-20) BUN (9-16) mg/dL Creatinine (0.5-1.4) mg/dL Estim Creat Clear Calc Estimated GFR Random Glucose (60-115) mg/dL Calcium (8.4-10.2) mg/dL Magnesium (1.6-2.6) mg/dL Total Bilirubin (0.0-1.0) mg/dL AST (5-31) U/L ALT (0-31) U/L Alkaline Phosphatase (39-117) U/L Total Protein (6.5-8.0) g/dL Albumin (3.5-5.0) g/dL Beta HCG, Quant mIU/mL Salicylates < 5.0 L (15-30) mg/dL Acetaminophen < 17 (<30) mcg/mL COVID-19 ([facility]) Negative (Negative) COVID-19 Clin Com See Note 04/30/23 04/30/23 Range/Units 15:50 15:50 WBC (4.8-10.8) X10*3/uL RBC (4.20-5.50) X10*6/uL Hgb (12.0-16.0) g/dl Hct (37.0-47.0) % MCV (80.0-98.0) fL MCH (27.0-33.0) pg MCHC (31.0-35.0) g/dl RDW (11.0-16.0) % Plt Count (160-400) X10*3/uL MPV (9.4-12.3) fL Immature Gran % (Auto) (0.0-0.4) % Neut % (Auto) (45-73) % Lymph % (Auto) (20-40) % Mcnairy % (Auto) (2-11) % Eos % (Auto) (0-4) % Baso % (Auto) (0-2) % Lymph # (Auto) (1.2-4.9) X10*3/uL [place] # (Auto) (0.1-1.2) X10*3/uL Eos # (Auto) (0.0-0.4) X10*3/uL Baso # (Auto) (0.0-0.2) X10*3/uL Abs Immat Gran (auto) (0.00-0.03) X10*3/uL Absolute Neuts (auto) (2.0-8.3) x10*3/uL Absolute Nucleated RBC (0.0-0.012) X10*3/uL Nucleated RBC % (auto) (0.0-0.2) /100WBC Sodium 138 (135-145) mmol/L Potassium 3.7 (3.3-5.1) mmol/L Chloride 101 (96-108) mmol/L Carbon Dioxide 23 (22-29) mmol/L Anion Gap 18 (12-20) BUN 10 (9-16) mg/dL Creatinine 0.79 (0.5-1.4) mg/dL Estim Creat Clear Calc 124.3 Estimated GFR > 60 Random Glucose 92 (60-115) mg/dL Calcium 9.4 (8.4-10.2) mg/dL Magnesium 1.4 L* (1.6-2.6) mg/dL Total Bilirubin 0.7 (0.0-1.0) mg/dL AST 28 (5-31) U/L ALT 16 (0-31) U/L Alkaline Phosphatase 121 H (39-117) U/L Total Protein 7.8 (6.5-8.0) g/dL Albumin 4.0 (3.5-5.0) g/dL Beta HCG, Quant < 2 mIU/mL Salicylates (15-30) mg/dL Acetaminophen (<30) mcg/mL COVID-19 ([facility]) (Negative) COVID-19 Clin Com Independent Interpretation I performed an independent interpretation of an: EKG Interpretation: Normal sinus rhythm, rate 96bpm, normal RI and QT intervals Discharge Plan Discharge Clinical Impression: Acute anxiety, Hypomagnesemia Patient Disposition: Home, Self-Care Instructions: Panic Disorder (ED), Hypomagnesemia (ED), Anxiety (ED) Additional Instructions: Please supplement with 300mg of OTC Magnesium. Follow up with your primary care provider. Return to the emergency department immediately if your symptoms worsen or if you develop any dizziness, shortness of breath, difficulty breathing, chest pain, blurry vision, loss of vision, nausea, vomiting, abdominal pain, fever, chills, back pain, or any other complaints. Prescriptions: No Action trazodone 50 mg Tablet 50 mg PO BEDTIME PRN (Reason: Insomnia) metoprolol succinate 100 mg tablet extended release 24 hr 100 mg PO DAILY cyclobenzaprine 5 mg tablet 5 mg PO TID PRN (Reason: Muscle Spasm) Referrals: Radha Blum MD [Primary Care Provider] - Interventions: ED Discharge Assessment Last Done: 04/30/23 18:07 Discharge Date/Time: 04/30/23 18:09 Print Language: Croatian
--- NOTE | 2023-04-30 14:11 | ECG_ITS ---
Test Reason : chest pressure Blood Pressure : / mmHG Vent. Rate : 096 BPM Atrial Rate : 096 BPM P-R Int : 148 ms QRS Dur : 078 ms QT Int : 356 ms P-R-T Axes : 042 004 013 degrees QTc Int : 449 ms Normal sinus rhythm Normal ECG When compared with ECG of 08-JAN-2019 09:25, No significant change was found Referred By: Jeanne Rebolledo Electronically Signed By:MAYUR LYNCH MD
--- NOTE | 2023-04-30 14:40 | PHA.MEDREC ---
Pharmacy Consult ? Medication Reconciliation Pharmacy has completed the medication reconciliation. Spoke to patient to confirm meds. Patient states they take trazodone and cyclobenzaprine, although admit it has been a year since they were prescribed. However, patient attests to still taking them on an as needed basis.
[2023-04-30 15:54] LABS: MANUAL DIFF FLAG NO
[2023-04-30 15:55] LABS: Basophils Absolute Auto 0.1 X10*3/uL (0.0-0.2); Basophils Percent Auto 0.5 % (0-2); Eosinophils Absolute Auto 0.1 X10*3/uL (0.0-0.4); Eosinophils Percent Auto 0.9 % (0-4); Hematocrit 37.7 % (37.0-47.0); Hemoglobin 12.5 g/dl (12.0-16.0); Imm Gran Abs Auto 0.02 X10*3/uL (0.00-0.03); Imm Gran Pct Auto 0.2 % (0.0-0.4); Lymphocytes Absolute Auto 1.6 X10*3/uL (1.2-4.9); Lymphocytes Percent Auto 17.8 % (20-40); Mean Corpuscular HGB Conc 33.2 g/dl (31.0-35.0); Mean Corpuscular Hemoglobin 28.3 pg (27.0-33.0); Mean Corpuscular Volume 85.3 fL (80.0-98.0); Mean Platelet Volume 8.5 fL (9.4-12.3); Monocytes Absolute Auto 0.3 X10*3/uL (0.1-1.2); Monocytes Percent Auto 3.7 % (2-11); Neutrophils Absolute Auto 7.1 x10*3/uL (2.0-8.3); Neutrophils Percent Auto 76.9 % (45-73); Platelet Count 412 X10*3/uL (160-400); Red Blood Count 4.42 X10*6/uL (4.20-5.50); Red Cell Distribution Width 16.6 % (11.0-16.0); White Blood Count 9.2 X10*3/uL (4.8-10.8)
[2023-04-30 16:12] LABS: COVID-19 Test Negative (Negative); IDNOW Serial# BCCEAD1C
[2023-04-30 16:28] LABS: Acetaminophen LAB < 17 mcg/mL (<30); Salicylate < 5.0 mg/dL (15-30)
[2023-04-30 16:28] LABS: HCG Quantitative < 2 mIU/mL
[2023-04-30 16:32] LABS: Alanine Aminotransferase 16 U/L (0-31); Alkaline Phosphatase 121 U/L (39-117); Anion Gap 18 (12-20); Aspartate Amino Transferase 28 U/L (5-31); Bilirubin Total 0.7 mg/dL (0.0-1.0); Blood Urea Nitrogen 10 mg/dL (9-16); Calcium 9.4 mg/dL (8.4-10.2); Carbon Dioxide 23 mmol/L (22-29); Chloride 101 mmol/L (96-108); Creatinine Clr Calc Pharmacy 124.3; Estimated Glomerular Filt Rate > 60; Glucose Random 92 mg/dL (60-115); Magnesium 1.4 mg/dL (1.6-2.6); Potassium 3.7 mmol/L (3.3-5.1); Sodium 138 mmol/L (135-145); Total Protein 7.8 g/dL (6.5-8.0)
[2023-04-30] MEDS: Magnesium Oxide 400 MG TABLET PO (16:58)
--- NOTE | 2023-04-30 17:47 | PC.NURSE ---
Patient calm and cooperative during her stay. Patient's Mom remained with patient for duration of stay. Patient asked several times if she was going to see a doctor, and was seen by an MEDICAL TRANSCRIPTION EDITOR. Patient received one magnesium 400mg PO dose due to low level. Patient stated that she was here due to increased anxiety and depression and that it was affecting her job. Patient came out and requested a discharge due to it feeling like a retirement. Patient due to discharge momentarily.
--- NOTE | 2023-04-30 19:53 | MHC.CARE ---
CARE team met with pt due to increased anxiety and panic attacks. Pt reports she was assessed by N in the community and clinician (Madina) suggested pt self present to ED for medication. She reports she is seeing a therapist at [facility] but her last appointment, approximately 3 weeks ago, was canceled by clinic and she has not heard back from the therapist. Pt is currently on waitlist to see psychiatrist.. She was on ativan years ago but weaned off because she ?felt better?. She is not currently on medications. She has discussed anxiety with pcp who referred her to N. Pt reports poor sleep and appetite for the past week, denies SI/HI/AVH. Pt agreeable to [facility]. Clinician made a referral to [facility] and provided pt with a resource handbook
--- NOTE | 2023-05-02 14:28 | MHC.CARE ---
CARE Team left for Pt.
== END 2023-04-30 18:09 | disposition home or self-care (01) ==
PROVIDERS: Physician Assistant; Registered Nurse Emergency; Emergency Provider Emergency Medicine; PCP Internal Medicine
DX: F41.9 Anxiety disorder, unspecified (principal); E83.42 Hypomagnesemia; Z20.822 Contact with and (suspected) exposure to COVID-19; Z79.899 Other long term (current) drug therapy
CPT/HCPCS: 36415; 80053; 80143; 80179; 83735; 84702; 85025; 87635; 93005; 99284

== ENCOUNTER 2024-03-14 20:04 | Inpatient (IN) | payer OTHER, SELFPAY ==
[2024-03-14 20:34] VITALS: BP 145/79; PULSE 101; RESP 14; TEMP 36.2; O2SAT 97; BMI 41.6
--- NOTE | 2024-03-14 20:34 | ED_ITS ---
HPI - General Adult General Chief complaint: Weakness Stated complaint: intermittent numbness, weakness, stiffness Time Seen by Provider: 03/14/24 20:53 Source: patient Mode of arrival: ambulatory Limitations: no limitations History of Present Illness HPI narrative: 38-year-old female with a history of anxiety, PCOS, palpitations, asthma, Fioci-Hxmhkacfq-Jbems status post ablation who presents emergency department for evaluation of generalized weakness, numbness and cramping of her hands and feet. Patient states she has had multiple episodes over the last 2 months. She states she can get up to 10 episodes per day. She states that the episode or start with numbness and tingling in her face and lips. The numbness then was spread throughout her entire body. She then will developed cramping sensations in her hands and feet. She will feel lightheaded and dizzy. She states that often she will get blurred vision and feels like she was going to pass out. Patient states that these can come out throughout the day. They are not related to her exertion level. She states she does have anxiety and does take Ativan but only rarely. Patient has been under increased stress she states secondary to her anxiety she is lost her job and this is been a major stressor in her life. Patient does have a history of palpitations and had a complete workup in 2021 including a normal echocardiogram and normal 5 day Holter monitor which revealed normal sinus rhythm occasional Mobitz type 1 and PACs but no significant arrhythmias. Patient states that she used to get rapid heart rate secondary to her Awish-Xjccddizb-Tgknx syndrome but she had an ablation when she was 17 years old. Patient states she does have a therapist and a prescribing provider. She takes Seroquel, Ativan, trazodone, multivitamins and metoprolol. She has been compliant with his medications. Related Data Home Medications ?Medication ?Instructions ?Recorded ?Confirmed cyclobenzaprine 5 mg tablet 5 mg PO TID PRN Muscle Spasm 02/15/22 04/30/23 metoprolol succinate 100 mg 100 mg PO DAILY 02/15/22 04/30/23 tablet,extended release 24 hr trazodone 50 mg tablet 50 mg PO BEDTIME PRN Insomnia 04/30/23 04/30/23 Allergies Allergy/AdvReac Type Severity Reaction Status Date / Time banana [BANANA] Allergy Unknown STOMACH Verified 03/14/24 20:38 PAINS metformin [METFORMIN] Allergy Unknown NAUSEA, Verified 03/14/24 20:38 DIARRHEA, stomach upset milk [MILK] Allergy Unknown CAN NOT Verified 03/14/24 20:38 TOLERATE Review of Systems 2 Review of Systems: Yes all other systems are reviewed and are negative [facility] Past Medical History [facility] Narrative: Social history: The patient denies tobacco use. She drinks alcohol 2 times a week, she drinks 3-5 alcoholic beverages including wine and liquor. She denies drug use. Medical History Abdominal pain WPW (Oezor-Hopsrahcf-Dgxbi syndrome) Surgical History Hx of cholecystectomy Family History Family History Mother Cardiac abnormality Maternal Aunt Hx of breast cancer History of colon cancer History of ovarian cancer Social History Social History Household Members Other:: alone Alcohol intake: current Alcohol intake frequency: holidays/special occasions only Smoked in Last 30 Days: No Use of substances other than those prescribed or required for medical reasons: No Substance Use Type: Marijuana Advance Directives: No Advance Directives Information Provided: No Do you have a plan to hurt others: No Plan Current occupational status: unemployed Gender identity: Female Physical Exam ED Vital Signs: Vital Signs - 24 hr 03/14/24 20:34 03/14/24 21:48 Temperature 97.2 F Pulse Rate 101 H 98 Respiratory Rate 14 16 Blood Pressure 145/79 H 142/76 H Pulse Oximetry 97 98 Oxygen Delivery Method Room Air Room Air BMI result Body Mass Index 41.6 Vital signs revealed an elevated heart rate of 101, elevated blood pressure of 145/79. Exam: General: Awake, alert in no distress, elevated BMI 41.6 kg per m2 Head: Normocephalic, atraumatic EENT: PERRL, Lids normal, sclera normal, conjunctiva normal, nose normal , ears normal, throat without erythema or exudates Neck: Supple, no adenopathy Lung: breath sounds symmetric, no wheezing, rales or rhonchi Chest: symmetric movement, nontender Heart: regular rate and rhythm, normal S1, S2 no murmurs or rubs Abdomen: soft, non-tender, nondistended, normal bowel sounds Back: no vertebral tenderness, no CVAT Extremities: no deformities, moves all extremities symmetrically Neuro: Awake, alert, oriented, normal speech, cranial nerves intact, moves all extremities symmetrically Psych: Pleasant, cooperative Course Course Course Narrative: RME- 38-year-old female presents for evaluation of intermittent weakness, numbness tingling over the last few months. Plan for labs including magnesium and TSH. She is neurologically intact Medications Administered Generic Name Dose Route Start Last Admin Trade Name Freq PRN Reason Stop Dose Admin Magnesium Sulfate 2 gm in 50 mls @ 25 mls/hr 03/14/24 22:05 03/14/24 22:30 Magnesium Sulfate/H2o IV 03/15/24 00:04 25 mls/hr ONCE ONE Administration Discontinued Medications Generic Name Dose Route Start Last Admin Trade Name Freq PRN Reason Stop Dose Admin Lorazepam 1 mg 03/14/24 21:17 03/14/24 21:43 Lorazepam 1 Mg Tablet PO 03/14/24 21:18 1 mg ONCE ONE Administration Potassium Chloride 40 meq 03/14/24 22:05 03/14/24 22:12 Potassium Chloride Packet 20 Meq Packet PO 03/14/24 22:06 40 meq ONCE ONE Administration Medical Decision Making Medical Decision Making [facility] Narrative: 38-year-old female with a history of anxiety, PCOS, palpitations, asthma, Kmcky-Ngjtygenn-Agzrx status post ablation who presents emergency department for evaluation of generalized weakness, numbness and cramping of her face, hands and feet with associated carpal pedal spasm, multiple episodes per day over the past 2 months. Patient has had panic attacks in the past and significant anxiety. She states that she lost her job secondary to her increased anxiety which is increased her stress. Vital signs did reveal an elevated heart rate and elevated blood pressure. Physical examination was unremarkable. Differential diagnosis: ?Includes but is not limited to myocardial ischemia, myocardial infarction, cardiac arrhythmia, anxiety, depression, hyperventilation syndrome, panic attacks, thyroid disease, anemia, electrolyte abnormalities Following evaluation was ordered: CBC, CMP, quantitative beta-hCG, lipase, magnesium, high sensitive troponin I, TSH with free T4, urinalysis, EKG Patient was initially treated with the following: Lorazepam 1 mg orally Course: : My interpretation patient's laboratory evaluation is as follows: Macrocytic anemia with an H&H of 9.3 and 25.7 with an MCV of 104.5 this was compared to an H&H of 12.5 and 37.7 otherwise a MCV of 85.3 04/30/2023. Troponin was below detectable limits. Potassium was low 2.2. Magnesium was low 0.8. Calcium was low 7.3 with an albumin of 3.4 and a corrected calcium of 7.8 which is still low. AST elevated 84. Total bilirubin elevated 1.1 Lipase was normal. Given the severe electrolyte abnormalities in the microcytic anemia I did order a ethanol level, B12 and folate level. Patient was treated with thiamine 100 mg IV, potassium chloride 40 mEq orally, potassium chloride 10 mEq IV per hour x4, magnesium 2 g IV, D5 NS at 125 cc an hours. I will discuss admission with the covering hospitalist. Lab Data 03/14/24 20:57 03/14/24 20:57 Labs: Lab Results 03/14/24 03/14/24 03/14/24 Range/Units 20:57 20:58 21:44 WBC 9.4 (4.8-10.8) X10*3/uL RBC 2.46 L D (4.20-5.50) X10*6/uL Hgb 9.3 L D (12.0-16.0) g/dl Hct 25.7 L D (37.0-47.0) % MCV 104.5 H (80.0-98.0) fL MCH 37.8 H (27.0-33.0) pg MCHC 36.2 H (31.0-35.0) g/dl RDW 15.5 (11.0-16.0) % Plt Count 383 (160-400) X10*3/uL MPV 9.0 L (9.4-12.3) fL Immature Gran % (Auto) 0.4 (0.0-0.4) % Neut % (Auto) 73.6 H (45-73) % Lymph % (Auto) 20.9 (20-40) % [place] % (Auto) 3.2 (2-11) % Eos % (Auto) 1.5 (0-4) % Baso % (Auto) 0.4 (0-2) % Lymph # (Auto) 2.0 (1.2-4.9) X10*3/uL [place] # (Auto) 0.3 (0.1-1.2) X10*3/uL Eos # (Auto) 0.1 (0.0-0.4) X10*3/uL Baso # (Auto) 0.0 (0.0-0.2) X10*3/uL Abs Immat Gran (auto) 0.04 H (0.00-0.03) X10*3/uL Absolute Neuts (auto) 6.9 (2.0-8.3) x10*3/uL Absolute Nucleated RBC 0.040 H (0.0-0.012) X10*3/uL Nucleated RBC % (auto) 0.4 H (0.0-0.2) /100WBC Sodium 140 (135-145) mmol/L Potassium 2.2 L* (3.3-5.1) mmol/L Chloride 86 L (96-108) mmol/L Carbon Dioxide 37 H (22-29) mmol/L Anion Gap 19 (12-20) BUN 5 L (9-16) mg/dL Creatinine 0.74 (0.5-1.4) mg/dL Estim Creat Clear Calc 121.7 Estimated GFR > 60 Random Glucose 109 (60-115) mg/dL Calcium 7.3 L D (8.4-10.2) mg/dL Magnesium 0.8 L* (1.6-2.6) mg/dL Total Bilirubin 1.1 H (0.0-1.0) mg/dL AST 48 H (5-31) U/L ALT 17 (0-31) U/L Alkaline Phosphatase 95 (39-117) U/L Troponin I High Sens < 2.7 (<3.5-17.0) ng/L Total Protein 7.2 (6.5-8.0) g/dL Albumin 3.4 L (3.5-5.0) g/dL Lipase 16 (8-78) U/L TSH 0.89 (0.32-4.0) uIU/mL Beta HCG, Quant < 2 mIU/mL Urine Color Yellow Urine Appearance Clear Urine pH 7.5 (5.0-9.0) Ur Specific [place] 1.010 (1.005-1.025) Urine Protein Negative (Neg-Trace) mg/dL Urine Glucose (UA) Negative (Negative) mg/dL Urine Ketones Negative (Negative) mg/dL Urine Blood Negative (Negative) Urine Nitrite Negative (Negative) Ur Leukocyte Esterase Negative (Negative) Urine RBC 0-2 (0-2) /HPF Urine WBC 0-5 (0-5) /HPF Ur Squamous Epith Cells 3-5 (0-2) /HPF Urine Bacteria None Seen (None Seen) Hyaline Casts 0-2 (0-2) /LPF Independent Interpretation I performed an independent interpretation of an: EKG Interpretation: My independent interpretation of the patient's 12 EKG done at 20:44 hours is as follows: There is artifact in the baseline but the EKG is still interpretable. Sinus tachycardia with a rate of 101, normal MS interval, QRS duration, prolonged QTC interval of 554 milliseconds, inverted T-waves V 2 through V5 with less than [address] segment depression in these leads, no PACs, no PVCs. Compared to EKG dated 04/30/2023, the anterior lateral abnormalities are new. Critical Care Time Critical Care Time Critical Care Time: Yes Total Critical Care Time: 45 Attestation: Critical Care: The patient was critically ill with a high probability of imminent or life threatening deterioration. I spent greater than 30 minutes of discontinuous time evaluating the patient,delivering critical care at the bedside, discussing and evaluating pertinent data with consultants. Critical care time does not include time spent performing separately billable procedures or teaching. Total time spent performing critical care was 45 minutes. Discharge Plan Discharge Clinical Impression: Acute hypokalemia, Hypomagnesemia, Hypocalcemia, Macrocytic anemia, [place] Prescriptions: No Action trazodone 50 mg Tablet 50 mg PO BEDTIME PRN (Reason: Insomnia) metoprolol succinate 100 mg tablet extended release 24 hr 100 mg PO DAILY cyclobenzaprine 5 mg tablet 5 mg PO TID PRN (Reason: Muscle Spasm) Print Language: Slovak
--- NOTE | 2024-03-14 20:35 | ECG_ITS ---
Test Reason : WEAKNESS Blood Pressure : / mmHG Vent. Rate : 101 BPM Atrial Rate : 101 BPM P-R Int : 132 ms QRS Dur : 082 ms QT Int : 428 ms P-R-T Axes : 002 004 038 degrees QTc Int : 554 ms Sinus tachycardia Possible Inferior infarct , age undetermined ST & T wave abnormality, consider anterolateral ischemia Abnormal ECG When compared with ECG of 30-APR-2023 15:55, T wave inversion now evident in Anterolateral leads QT has lengthened Referred By: Kee Oshea Electronically Signed By:DESEAN JOLLY
[2024-03-14 21:04] LABS: MANUAL DIFF FLAG NO
[2024-03-14 21:12] LABS: Basophils Percent Auto 0.4 % (0-2); Eosinophils Absolute Auto 0.1 X10*3/uL (0.0-0.4); Eosinophils Percent Auto 1.5 % (0-4); Hematocrit 25.7 % (37.0-47.0); Hemoglobin 9.3 g/dl (12.0-16.0); Imm Gran Abs Auto 0.04 X10*3/uL (0.00-0.03); Imm Gran Pct Auto 0.4 % (0.0-0.4); Lymphocytes Percent Auto 20.9 % (20-40); Mean Corpuscular HGB Conc 36.2 g/dl (31.0-35.0); Mean Corpuscular Hemoglobin 37.8 pg (27.0-33.0); Mean Corpuscular Volume 104.5 fL (80.0-98.0); Monocytes Absolute Auto 0.3 X10*3/uL (0.1-1.2); Monocytes Percent Auto 3.2 % (2-11); NRBC Pct Auto 0.4 /100WBC (0.0-0.2); Neutrophils Absolute Auto 6.9 x10*3/uL (2.0-8.3); Neutrophils Percent Auto 73.6 % (45-73); Platelet Count 383 X10*3/uL (160-400); Red Blood Count 2.46 X10*6/uL (4.20-5.50); Red Cell Distribution Width 15.5 % (11.0-16.0); White Blood Count 9.4 X10*3/uL (4.8-10.8)
[2024-03-14] MEDS: LORazepam 1 MG TABLET PO (21:43)
[2024-03-14 21:48] VITALS: BP 142/76; PULSE 98; RESP 16; O2SAT 98
[2024-03-14 21:49] LABS: Troponin-I High Sensitivity < 2.7 ng/L (<3.5-17.0)
[2024-03-14 21:49] LABS: HCG Quantitative < 2 mIU/mL
[2024-03-14 21:53] LABS: Alanine Aminotransferase 17 U/L (0-31); Albumin Level 3.4 g/dL (3.5-5.0); Alkaline Phosphatase 95 U/L (39-117); Anion Gap 19 (12-20); Aspartate Amino Transferase 48 U/L (5-31); Bilirubin Total 1.1 mg/dL (0.0-1.0); Blood Urea Nitrogen 5 mg/dL (9-16); Calcium 7.3 mg/dL (8.4-10.2); Carbon Dioxide 37 mmol/L (22-29); Chloride 86 mmol/L (96-108); Creatinine Clr Calc Pharmacy 121.7; Estimated Glomerular Filt Rate > 60; Glucose Random 109 mg/dL (60-115); Lipase 16 U/L (8-78); Magnesium 0.8 mg/dL (1.6-2.6); Potassium 2.2 mmol/L (3.3-5.1); Sodium 140 mmol/L (135-145); Total Protein 7.2 g/dL (6.5-8.0)
[2024-03-14 21:58] LABS: Appearance Urine Clear; Color Urine Yellow; Glucose Urine UA Negative (Negative); Leukocyte Esterase Urine Negative (Negative); Nitrite Urine Negative (Negative); PH 7.5 (5.0-9.0); Urine Blood Negative (Negative); Urine Ketones Negative (Negative); Urine Protein Negative (Neg-Trace)
[2024-03-14 21:59] LABS: TSH reflex Free T4 0.89 uIU/mL (0.32-4.0)
[2024-03-14 22:03] LABS: Bacteria Urine None Seen (None Seen); Hyaline Casts Urine 0-2 /LPF (0-2); RBC Urine 0-2 /HPF (0-2); WBC Urine 0-5 /HPF (0-5)
[2024-03-14] MEDS: Potassium Chloride Packet 20 MEQ PACKET 40 MEQ PO (22:12)
[2024-03-14] MEDS: Magnesium Sulfate/H2O 2 GM/50 ML PIGGYBACK IV (22:30)
[2024-03-14 22:47] LABS: Ethanol < 10 mg/dL
[2024-03-14 22:49] LABS: Amphetamine Screen Urine Not Detected (Not Detect); Barbiturates, Urine Not Detected (Not Detect); Benzodiazepines Screen Urine Not Detected (Not Detect); Buprenorphine Scr Not Detected (Not Detect); Cannabinoid Screen Urine Not Detected (Not Detect); Cocaine Screen Urine Not Detected (Not Detect); Fentanyl, urine Not Detected (Not Detect); Methadone Screen, Urine Not Detected (Not Detect); Opiate Screen Urine Not Detected (Not Detect); Oxycodone Screen Urine Not Detected (Not Detect); Phencyclidine Screen Urine Not Detected (Not Detect)
[2024-03-14 23:14] VITALS: BP 121/73; PULSE 95; RESP 16; TEMP 36.8; O2SAT 95
[2024-03-14] MEDS: Potassium Chloride/H20 10 MEQ/100 ML PIGGYBACK 100 MEQ IV (23:42)
[2024-03-14] MEDS: Folic Acid 1 MG TABLET PO (23:43)
[2024-03-15] MEDS: Thiamine HCL 100 MG in 0.9 % Sodium Chloride 100 ML 202 MG IV (00:05)
[2024-03-15 00:26] LABS: Folate < 2.2 ng/mL (> or = 4.0); Vitamin B12 186 pg/mL (200-900)
--- NOTE | 2024-03-15 00:31 | PC.NURSE ---
pt assessed denies any pain, medications infusing per MAR
--- NOTE | 2024-03-15 00:49 | P.HPHOSP_ITS ---
History of Present Illness Date of Service: 03/15/24 Chief Complaint: Weakness This is a 38-year-old female with pertinent history of generalized anxiety disorder, Vaeup-Splekftah-Rtmbl syndrome status post ablation, essential hypertension who presents to the emergency department for evaluation of generalized weakness and muscle spasms. Patient states this has been ongoing for the last 2 months. She has had multiple episodes of muscle spasm throughout the day. Also has numbness and tingling of her face and lips. The muscle spasm feel like cramps in her bilateral upper and lower extremity. Admits occasional dizziness and lightheadedness. Patient denies nausea, vomiting or diarrhea. No change in urinary habits. This has never happened before. Patient states she has been stress for the last 2 months as she lost her job. She has increased alcohol consumption in the last 2 months. No history of alcohol withdrawal. Also has a history of palpitations but had a complete negative workup in 2021 including a normal echo and normal 5 day Holter monitor. No fever, chills, chest discomfort, shortness of breath, abdominal pain, changes in urinary or bowel habits. Patient had an episode of tetany in the ER when BP cuff was inflating. In the emergency department patient was found to have low potassium, low magnesium, low calcium and macrocytic anemia Review of Systems 2 Constitutional: Constitutional: Reports fatigue, Reports lethargy, Reports poor appetite and Reports weakness Cardiovascular: Cardiovascular: Reports no additional cardiovascular complaints Respiratory: Respiratory: Reports no additional respiratory complaints Gastrointestinal: Gastrointestinal: Reports no additional gastrointestinal complaints Genitourinary: Genitourinary: Reports no additional female genitourinary complaints Neurologic: Reports weakness Endocrine: Endocrine: Reports fatigue [facility] Medical History WPW (Tsiwx-Xgduaenbu-Tfkgu syndrome) Abdominal pain Family History Mother Cardiac abnormality Maternal Aunt Hx of breast cancer History of colon cancer History of ovarian cancer Surgical History Hx of cholecystectomy Social History Household Members Other:: alone Alcohol intake: current Alcohol intake frequency: holidays/special occasions only Smoked in Last 30 Days: No Use of substances other than those prescribed or required for medical reasons: No Substance Use Type: Marijuana Advance Directives: No Advance Directives Information Provided: No Do you have a plan to hurt others: No Plan Current occupational status: unemployed Gender identity: Female Meds Allergies Allergy/AdvReac Type Severity Reaction Status Date / Time banana [BANANA] Allergy Unknown STOMACH Verified 03/14/24 20:38 PAINS metformin [METFORMIN] Allergy Unknown NAUSEA, Verified 03/14/24 20:38 DIARRHEA, stomach upset milk [MILK] Allergy Unknown CAN NOT Verified 03/14/24 20:38 TOLERATE Active Medications: Current Medications Potassium Chloride (Potassium Chloride/H20) 10 meq in 100 mls @ 100 mls/hr IV Q1H JOHNATHAN Stop: 03/15/24 02:14 Last Infusion: 03/15/24 00:42 Dose: Infused Dextrose/Sodium Chloride (D5ns) 1,000 mls @ 125 mls/hr IVCONT .Q8H [facility] Home Medications ?Medication ?Instructions ?Recorded ?Confirmed ?Last Taken ?Type cyclobenzaprine 5 mg tablet 5 mg PO TID PRN Muscle Spasm 02/15/22 04/30/23 2 Days Ago History ~04/28/23 metoprolol succinate 100 mg 100 mg PO DAILY 02/15/22 04/30/23 04/30/23 History tablet,extended release 24 hr trazodone 50 mg tablet 50 mg PO BEDTIME PRN Insomnia 04/30/23 04/30/23 2 Days Ago History ~04/28/23 Physical Exam 2 Vital Signs and Narrative: Vital Signs: Last Vital Signs Temp 98.2 F 03/14/24 23:14 Pulse 95 03/14/24 23:14 Resp 16 03/14/24 23:14 BP 121/73 03/14/24 23:14 Pulse Ox 95 03/14/24 23:14 O2 Del Method Room Air 03/14/24 23:14 BMI result Body Mass Index 41.6 Middle-aged female lying in bed in no distress Neck supple, no JVD Regular rate and rhythm, S1-S2 heard Regular breath sounds bilaterally, no wheezing or crackles appreciated Abdomen soft nontender, no guarding, no rigidity Patient is awake, alert and oriented to self, place, time and person ; no focal motor deficit Psych: Normal mood No pedal edema Results Labs 03/14/24 20:57 03/14/24 20:57 Labs: Laboratory Results - last 24 hr 03/14/24 03/14/24 03/14/24 20:57 20:58 21:44 MCV 104.5 H MCH 37.8 H MCHC 36.2 H RDW 15.5 Plt Count 383 MPV 9.0 L Immature Gran % (Auto) 0.4 Neut % (Auto) 73.6 H Lymph % (Auto) 20.9 Sharkey % (Auto) 3.2 Eos % (Auto) 1.5 Baso % (Auto) 0.4 Lymph # (Auto) 2.0 Sharkey # (Auto) 0.3 Eos # (Auto) 0.1 Baso # (Auto) 0.0 Abs Immat Gran (auto) 0.04 H Absolute Neuts (auto) 6.9 Absolute Nucleated RBC 0.040 H Nucleated RBC % (auto) 0.4 H Anion Gap 19 Estim Creat Clear Calc 121.7 Estimated GFR > 60 Random Glucose 109 Calcium 7.3 L D Magnesium 0.8 L* Total Bilirubin 1.1 H AST 48 H ALT 17 Alkaline Phosphatase 95 Troponin I High Sens < 2.7 Total Protein 7.2 Albumin 3.4 L Lipase 16 Vitamin B12 Folate TSH 0.89 Beta HCG, Quant < 2 Urine Color Yellow Urine Appearance Clear Urine pH 7.5 Ur Specific Orosi 1.010 Urine Protein Negative Urine Glucose (UA) Negative Urine Ketones Negative Urine Blood Negative Urine Nitrite Negative Ur Leukocyte Esterase Negative Urine RBC 0-2 Urine WBC 0-5 Ur Squamous Epith Cells 3-5 Urine Bacteria None Seen Hyaline Casts 0-2 Urine Opiates Screen Not Detected Ur Buprenorphine Scrn Not Detected Ur Oxycodone Screen Not Detected Urine Methadone Screen Not Detected Urine Fentanyl Screen Not Detected Ur Barbiturates Screen Not Detected Ur Phencyclidine Scrn Not Detected Ur Amphetamines Screen Not Detected U Benzodiazepines Scrn Not Detected Urine Cocaine Screen Not Detected U Marijuana (THC) Screen Not Detected Ethyl Alcohol 03/14/24 22:29 MCV MCH MCHC RDW Plt Count MPV Immature Gran % (Auto) Neut % (Auto) Lymph % (Auto) Sharkey % (Auto) Eos % (Auto) Baso % (Auto) Lymph # (Auto) Sharkey # (Auto) Eos # (Auto) Baso # (Auto) Abs Immat Gran (auto) Absolute Neuts (auto) Absolute Nucleated RBC Nucleated RBC % (auto) Anion Gap Estim Creat Clear Calc Estimated GFR Random Glucose Calcium Magnesium Total Bilirubin AST ALT Alkaline Phosphatase Troponin I High Sens Total Protein Albumin Lipase Vitamin B12 186 L Folate < 2.2 L TSH Beta HCG, Quant Urine Color Urine Appearance Urine pH Ur Specific Orosi Urine Protein Urine Glucose (UA) Urine Ketones Urine Blood Urine Nitrite Ur Leukocyte Esterase Urine RBC Urine WBC Ur Squamous Epith Cells Urine Bacteria Hyaline Casts Urine Opiates Screen Ur Buprenorphine Scrn Ur Oxycodone Screen Urine Methadone Screen Urine Fentanyl Screen Ur Barbiturates Screen Ur Phencyclidine Scrn Ur Amphetamines Screen U Benzodiazepines Scrn Urine Cocaine Screen U Marijuana (THC) Screen Ethyl Alcohol < 10 Assessment and Plan (1) Hypocalcemia: Status: Acute (2) Hypomagnesemia: Status: Acute (3) Acute hypokalemia: Status: Acute (4) Macrocytic anemia: Status: Acute (5) Tetany: Status: Acute Plan This is a 38-year-old female with pertinent history of generalized anxiety disorder, Qxhfr-Llgfhnmuk-Ducjv syndrome status post ablation, essential hypertension who presents to the emergency department for evaluation of generalized weakness and muscle spasms. #. Symptomatic hypocalcemia/hypomagnesemia/hypokalemia: Repleting. Monitor electrolytes. Consulting Nephrology. #. Macrocytic anemia: Initiating B12 and folate supplementation #. Uncontrolled generalized anxiety disorder: Continue home mood stabilizers. Consulting psych to optimize #. Alcohol use disorder: Initiating thiamine and monitor CIWA #. Essential hypertension: On metoprolol Med rec pending DVT prophylaxis: Lovenox Full code Admit as inpatient and will require two night minimum hospital stay for close monitoring of symptoms, monitoring of electrolytes (as above), which is not possible in a lesser acute setting. Specialist consult pending Quality Stroke Does the patient have a stroke diagnosis?: No VTE Prior VTE?: No VTE Risk Level:: Medical - moderate - high VTE Device Contraindication: Treatment Not Indicated VTE Drug Contraindication: N/A - Med Ordered
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
--- OUTSIDE RECORDS SUMMARY | 2024-03-15 00:53 | XMS_ITS | Patient Health Record ---
Author Organization [facility] Address [address] [place] [address] Care Team Providers Care Business Unit Director Name Role Phone Radah Blum Primary Care Provider Unavailab Ammon Cano Unavailable [phone] REASON FOR REFERRAL No Information MEDICATIONS Medication SIG (Take, Route, Fr equency, Duration) Notes Start Date End Date Status Omeprazole 20 MG 1 capsule Orally Onc e a day for 30 day(s) 01/09/2016 Active SEROquel 300mg Activ e OXcarbazepine 600mg Active Ambien 10mg Active hydrOXYzine HCl Acti ve PARoxetine HCl Activ e Gregorio 24 FE Active SOCIAL HISTORY Sex Assigned At : Social History Observation Description Sex Assigned At Unknown PROBLEMS Problem Type ICD Code Onset Dates Problem Status W/U Status Risk SNOMED Code Notes Problem Abdominal pain, epigastric (R10.13) Active confirmed 72442140 Problem Constipation, unspecified constipation type (K59.00) Active confirmed 25435136 Problem Abdominal pain, right upper quadrant (R10.11) Active confirmed 889461831 PLAN OF TREATMENT Pending Test Test Name Order Date GI BIOPSY 07/07/2016 H. PYLORI IGG 01/09/2016 Future Test Test Name Order Date UPPER GI ENDOSCOPY 04/16/2016 Insurance Providers Payer Name Payer Address Payer Phone Subscriber Number Group Number Insured Name Patient Relationship to Insured Coverage Start Date Coverage End Date [facility] [employer] [facility] [address] [address] [place], [place] [id number] RAJ QUIJANO Self - patient is the insured MEDICAID OF [facility] [address] [place] [address] [id number] RAJ QUIJANO Self - patient is the insured MEDICAL (GENERAL) HISTORY Medical History History ICD Code Denies [place],DM,CVA,renal disease Cardiac ablation--WPW syndrome-at [facility]-i n 2001 or 2002 Depression and panic attacks Asthma Surgical History Surgery Date(Month/Year) [facility] for gallstones 05/[address] Barron
[2024-03-15] MEDS: Dextrose 5 % and 0.9 % NaCl 1,000 ML 125 ML IVCONT ×3 (01:12→22:48)
[2024-03-15] MEDS: Potassium Chloride/H20 10 MEQ/100 ML PIGGYBACK 100 MEQ IV ×7 (01:12→10:39)
[2024-03-15 01:29] LABS: Phosphorus 3.1 mg/dL (2.7-4.5)
[2024-03-15] MEDS: Enoxaparin Sodium 40 MG/0.4 ML SYRINGE SUBCUT ×2 (02:29→20:49)
[2024-03-15 02:49] VITALS: BP 162/108; PULSE 94; RESP 30; TEMP 36.9; O2SAT 93
[2024-03-15] MEDS: Cyanocobalamin (Vitamin B-12) 1,000 MCG/ML VIAL 1000 MCG IM (04:37)
[2024-03-15 05:58] LABS: MANUAL DIFF FLAG NO
[2024-03-15 06:00] LABS: Basophils Percent Auto 0.4 % (0-2); Eosinophils Absolute Auto 0.1 X10*3/uL (0.0-0.4); Eosinophils Percent Auto 1.5 % (0-4); Hemoglobin 8.5 g/dl (12.0-16.0); Imm Gran Abs Auto 0.04 X10*3/uL (0.00-0.03); Imm Gran Pct Auto 0.5 % (0.0-0.4); Lymphocytes Percent Auto 24.7 % (20-40); Mean Corpuscular HGB Conc 35.4 g/dl (31.0-35.0); Mean Corpuscular Hemoglobin 37.8 pg (27.0-33.0); Mean Corpuscular Volume 106.7 fL (80.0-98.0); Mean Platelet Volume 8.9 fL (9.4-12.3); Monocytes Absolute Auto 0.3 X10*3/uL (0.1-1.2); Monocytes Percent Auto 3.9 % (2-11); NRBC Pct Auto 0.4 /100WBC (0.0-0.2); Neutrophils Absolute Auto 5.7 x10*3/uL (2.0-8.3); Platelet Count 376 X10*3/uL (160-400); Red Blood Count 2.25 X10*6/uL (4.20-5.50); Red Cell Distribution Width 15.9 % (11.0-16.0); White Blood Count 8.3 X10*3/uL (4.8-10.8)
[2024-03-15] MEDS: Calcium Gluconate/NaCl,Iso-Osm 2 GM/100 ML PLAST..BAG IV (06:05)
[2024-03-15 06:28] VITALS: BP 144/92; PULSE 99; RESP 20; TEMP 36.6; O2SAT 93
[2024-03-15 06:31] LABS: Anion Gap 17 (12-20); Blood Urea Nitrogen 4 mg/dL (9-16); Calcium 6.6 mg/dL (8.4-10.2); Carbon Dioxide 31 mmol/L (22-29); Chloride 94 mmol/L (96-108); Creatinine Clr Calc Pharmacy 140.7; Estimated Glomerular Filt Rate > 60; Glucose Random 101 mg/dL (60-115); Magnesium 1.5 mg/dL (1.6-2.6); Potassium 2.1 mmol/L (3.3-5.1); Sodium 140 mmol/L (135-145)
--- NOTE | 2024-03-15 06:42 | PC.NURSE ---
Addendum entered by Barbi Greco RN 03/15/24 06:47: Dr. Donis aware, ordered additional medications Original Note: Dr. Gagandeep sheth text about pt critical value, K 2.1
[2024-03-15] MEDS: Potassium Chloride Packet 20 MEQ PACKET 40 MEQ PO (07:17)
[2024-03-15] MEDS: Magnesium Sulfate/H2O 2 GM/50 ML PIGGYBACK IV (07:17)
--- NOTE | 2024-03-15 07:45 | PC.NURSE ---
this RN resumed care of pt at 0700. a&ox4. vss and up to date. nsr on the monitoring analyst. pt currently c/o 2/10 generalized body aches d/t muscle spasms. pt stating she is just uncomfortable. updated CIWA = 2. pt's face slightly fiaphoretic/pt c/o slight anxiety - which she states is her baseline. medications administered per provider order. D5NS continues to infuse at this time. IVs remain patent. pt waiting for bed assignment at this time. no sob/wob noted. respirations even and unlabored. pt waiting for bed assignment. plan of care ongoing. call dowling placed within reach.
[2024-03-15] MEDS: Cyanocobalamin (Vitamin B-12) 1,000 MCG TABLET 1000 MCG PO (08:17)
[2024-03-15] MEDS: Thiamine HCL 100 MG TABLET PO (08:17)
[2024-03-15] MEDS: Folic Acid 1 MG TABLET PO (08:17)
[2024-03-15 08:52] LABS: Hemoglobin 9.3 g/dl (12.0-16.0)
--- NOTE | 2024-03-15 09:04 | PHA.MEDREC ---
Pharmacy Consult ? Medication Reconciliation Pharmacy has completed the medication reconciliation. Spoke to patient and confirmed medication list.
[2024-03-15 09:19] LABS: Anion Gap 16 (12-20); Blood Urea Nitrogen 3 mg/dL (9-16); Calcium 7.6 mg/dL (8.4-10.2); Carbon Dioxide 30 mmol/L (22-29); Chloride 96 mmol/L (96-108); Creatinine Clr Calc Pharmacy 140.7; Estimated Glomerular Filt Rate > 60; Glucose Random 120 mg/dL (60-115); Iron 74 mcg/dL (30-160); Percent Iron Saturation 25 % (15-50); Potassium 2.3 mmol/L (3.3-5.1); Sodium 140 mmol/L (135-145); Total Iron Binding Capacity 298 mcg/dL (228-428); Unsaturated Iron Binding 224 ug/dL
--- NOTE | 2024-03-15 09:20 | PC.NURSE ---
critical lab value of a potassium of 2.[address] at this time. dr. galo notified/aware.
[2024-03-15 09:29] LABS: Ferritin 354 ng/mL (10-122)
[2024-03-15 09:43] LABS: Folate 3.9 ng/mL (> or = 4.0); Vitamin B12 > 2000 pg/mL (200-900)
--- NOTE | 2024-03-15 09:43 | PC.NURSE ---
pt ambulates to the restroom w/ a strong steady gait. no use of assistive devices needed. urine obtained/sent to lab. plan of care ongoing.
[2024-03-15 10:09] LABS: Creatinine Urine 46.47 mg/dL; Potassium Urine Random 10.1 mmol/L
[2024-03-15] MEDS: Magnesium Oxide 400 MG TABLET 800 MG PO (10:21)
[2024-03-15] MEDS: Potassium Chloride ER 20 MEQ TAB.ER.PRT 40 MEQ PO ×2 (10:21)
--- NOTE | 2024-03-15 10:39 | PC.NURSE ---
pt seen by admitting provider/aware of plan of care moving forward. medication administered per provider order. pt speaking w/ WELDER/INSTALLER in regards to anxiety. respirations remain even and unlabored. pt continues to wait for bed assignment at this time. plan of care ongoing. call dowling placed within reach.
[2024-03-15 11:05] LABS: Magnesium 1.9 mg/dL (1.6-2.6); Phosphorus 2.2 mg/dL (2.7-4.5)
--- NOTE | 2024-03-15 12:29 | PM.PSYCN ---
History of Present Illness Date of Service: 03/15/2024 Chief Complaint: Weakness Reason for Consult: anxiety Requesting physician: Shante Donis Discussed with referring provider: Yes Sources of Information: patient interviewed and chart reviewed HPI Narrative: 38-year-old female with a history of anxiety, PCOS, palpitations, asthma, Wvmig-Nbxadzrlo-Vqewd status post ablation who presents emergency department for evaluation of generalized weakness, numbness and cramping of her hands and feet. Patient states she has had multiple episodes over the last 2 months. She states she can get up to 10 episodes per day. She states that the episode or start with numbness and tingling in her face and lips. The numbness then was spread throughout her entire body. She then will developed cramping sensations in her hands and feet. She will feel lightheaded and dizzy. She states that often she will get blurred vision and feels like she was going to pass out. Patient states that these can come out throughout the day. They are not related to her exertion level. She states she does have anxiety and does take Ativan but only rarely. Patient has been under increased stress she states secondary to her anxiety she is lost her job and this is been a major stressor in her life. pt reports her anxiety is decreased today since getting dose of ativan. Patient reports that she has had many stressors over the past 2-1/2 months since losing her job. She did not have insurance because of a mistake that someone else made approving her cobra. She says she was without medications and without treatment for 2 months because her insurance was pending. After many phone calls she was able to get it reinstated. But during this time she took her meds sporadically because she could not afford them and they were not covered. She also would not eat regularly. She states that she would go up to 7 or 8 days without eating what. She reports that her medications were helpful when she was taking them regularly. She denies side effects. She states that she seen at [facility] for therapy and medications but now her prescriber is on maternity leave and she thinks that she may have an appointment with a new provider in a month or more. She denies SI denies HI no sign swathi no auditory or visual hallucinations. She has increased alcohol consumption in the last 2 months. she is currently on CIWA protocol. She denies withdrawal symptoms currently although she appears diaphoretic. Past Psychiatric History: pt has been treated at [facility] outpatient - reports current prescriber is on maternity leave Patient does have a history of palpitations and had a complete workup in 2021 including a normal echocardiogram and normal 5 day Holter monitor which revealed normal sinus rhythm occasional Mobitz type 1 and PACs but no significant arrhythmias. Patient states that she used to get rapid heart rate secondary to her Rtrav-Xzaejbaef-Jhwov syndrome but she had an ablation when she was 17 years old. Review of Systems Review of Systems Yes all other systems are reviewed and are negative Constitutional: Reports fatigue, Reports lethargy, Reports poor appetite and Reports weakness Cardiovascular: Reports no additional cardiovascular complaints Respiratory: Reports no additional respiratory complaints Gastrointestinal: Reports no additional gastrointestinal complaints Musculoskeletal: Denies back pain Reports weakness Endocrine: Reports fatigue [facility] Medical History WPW (Axyyo-Ygxhtepub-Fndod syndrome) Abdominal pain Surgical History Hx of cholecystectomy Diagnostics Vital Signs (24Hr): Vital Signs - 24 hr 03/14/24 20:34 03/14/24 21:48 03/14/24 23:14 Temperature 97.2 F 98.2 F Pulse Rate 101 H 98 95 Respiratory Rate 14 16 16 Blood Pressure 145/79 H 142/76 H 121/73 Pulse Oximetry 97 98 95 Oxygen Delivery Method Room Air Room Air Room Air 03/15/24 02:49 03/15/24 06:28 Temperature 98.5 F 97.8 F Pulse Rate 94 99 Respiratory Rate 30 H 20 Blood Pressure 162/108 H 144/92 H Pulse Oximetry 93 93 Oxygen Delivery Method Room Air Room Air BMI result Body Mass Index 41.6 Labs 03/15/24 08:38 03/15/24 08:38 Labs: Laboratory Results - last 48 hr 03/14/24 03/14/24 03/14/24 20:57 20:58 21:44 WBC 9.4 RBC 2.46 L D Hgb 9.3 L D Hct 25.7 L D MCV 104.5 H MCH 37.8 H MCHC 36.2 H RDW 15.5 Plt Count 383 MPV 9.0 L Immature Gran % (Auto) 0.4 Neut % (Auto) 73.6 H Lymph % (Auto) 20.9 [place] % (Auto) 3.2 Eos % (Auto) 1.5 Baso % (Auto) 0.4 Lymph # (Auto) 2.0 [place] # (Auto) 0.3 Eos # (Auto) 0.1 Baso # (Auto) 0.0 Abs Immat Gran (auto) 0.04 H Absolute Neuts (auto) 6.9 Absolute Nucleated RBC 0.040 H Nucleated RBC % (auto) 0.4 H Sodium 140 Potassium 2.2 L* Chloride 86 L Carbon Dioxide 37 H Anion Gap 19 BUN 5 L Creatinine 0.74 Estim Creat Clear Calc 121.7 Estimated GFR > 60 Random Glucose 109 Calcium 7.3 L D Phosphorus 3.1 Magnesium 0.8 L* Iron TIBC % Saturation Unsat Iron Binding Ferritin Total Bilirubin 1.1 H AST 48 H ALT 17 Alkaline Phosphatase 95 Troponin I High Sens < 2.7 Total Protein 7.2 Albumin 3.4 L Lipase 16 Vitamin B12 Folate TSH 0.89 Beta HCG, Quant < 2 Urine Color Yellow Urine Appearance Clear Urine pH 7.5 Ur Specific [place] 1.010 Urine Protein Negative Urine Glucose (UA) Negative Urine Ketones Negative Urine Blood Negative Urine Nitrite Negative Ur Leukocyte Esterase Negative Urine RBC 0-2 Urine WBC 0-5 Ur Squamous Epith Cells 3-5 Urine Bacteria None Seen Hyaline Casts 0-2 Ur Random Potassium Urine Creatinine Urine Opiates Screen Not Detected Ur Buprenorphine Scrn Not Detected Ur Oxycodone Screen Not Detected Urine Methadone Screen Not Detected Urine Fentanyl Screen Not Detected Ur Barbiturates Screen Not Detected Ur Phencyclidine Scrn Not Detected Ur Amphetamines Screen Not Detected U Benzodiazepines Scrn Not Detected Urine Cocaine Screen Not Detected U Marijuana (THC) Screen Not Detected Ethyl Alcohol Blood Type Antibody Screen 03/14/24 03/15/24 03/15/24 22:29 04:22 08:38 WBC 8.3 RBC 2.25 L Hgb 8.5 L 9.3 L Hct 24.0 L 26.0 L MCV 106.7 H MCH 37.8 H MCHC 35.4 H RDW 15.9 Plt Count 376 MPV 8.9 L Immature Gran % (Auto) 0.5 H Neut % (Auto) 69.0 Lymph % (Auto) 24.7 [place] % (Auto) 3.9 Eos % (Auto) 1.5 Baso % (Auto) 0.4 Lymph # (Auto) 2.0 [place] # (Auto) 0.3 Eos # (Auto) 0.1 Baso # (Auto) 0.0 Abs Immat Gran (auto) 0.04 H Absolute Neuts (auto) 5.7 Absolute Nucleated RBC 0.030 H Nucleated RBC % (auto) 0.4 H Sodium 140 140 Potassium 2.1 L* 2.3 L* Chloride 94 L 96 Carbon Dioxide 31 H 30 H Anion Gap 17 16 BUN 4 L 3 L Creatinine 0.64 0.64 Estim Creat Clear Calc 140.7 140.7 Estimated GFR > 60 > 60 Random Glucose 101 120 H Calcium 6.6 L D 7.6 L D Phosphorus 2.2 L Magnesium 1.5 L 1.9 Iron 74 TIBC 298 % Saturation 25 Unsat Iron Binding 224 Ferritin 354 H Total Bilirubin AST ALT Alkaline Phosphatase Troponin I High Sens Total Protein Albumin Lipase Vitamin B12 186 L > 2000 H Folate < 2.2 L 3.9 L TSH Beta HCG, Quant Urine Color Urine Appearance Urine pH Ur Specific [place] Urine Protein Urine Glucose (UA) Urine Ketones Urine Blood Urine Nitrite Ur Leukocyte Esterase Urine RBC Urine WBC Ur Squamous Epith Cells Urine Bacteria Hyaline Casts Ur Random Potassium Urine Creatinine Urine Opiates Screen Ur Buprenorphine Scrn Ur Oxycodone Screen Urine Methadone Screen Urine Fentanyl Screen Ur Barbiturates Screen Ur Phencyclidine Scrn Ur Amphetamines Screen U Benzodiazepines Scrn Urine Cocaine Screen U Marijuana (THC) Screen Ethyl Alcohol < 10 Blood Type Antibody Screen 03/15/24 03/15/24 09:40 10:03 WBC RBC Hgb Hct MCV MCH MCHC RDW Plt Count MPV Immature Gran % (Auto) Neut % (Auto) Lymph % (Auto) [place] % (Auto) Eos % (Auto) Baso % (Auto) Lymph # (Auto) [place] # (Auto) Eos # (Auto) Baso # (Auto) Abs Immat Gran (auto) Absolute Neuts (auto) Absolute Nucleated RBC Nucleated RBC % (auto) Sodium Potassium Chloride Carbon Dioxide Anion Gap BUN Creatinine Estim Creat Clear Calc Estimated GFR Random Glucose Calcium Phosphorus Magnesium Iron TIBC % Saturation Unsat Iron Binding Ferritin Total Bilirubin AST ALT Alkaline Phosphatase Troponin I High Sens Total Protein Albumin Lipase Vitamin B12 Folate TSH Beta HCG, Quant Urine Color Urine Appearance Urine pH Ur Specific [place] Urine Protein Urine Glucose (UA) Urine Ketones Urine Blood Urine Nitrite Ur Leukocyte Esterase Urine RBC Urine WBC Ur Squamous Epith Cells Urine Bacteria Hyaline Casts Ur Random Potassium 10.1 Urine Creatinine 46.47 Urine Opiates Screen Ur Buprenorphine Scrn Ur Oxycodone Screen Urine Methadone Screen Urine Fentanyl Screen Ur Barbiturates Screen Ur Phencyclidine Scrn Ur Amphetamines Screen U Benzodiazepines Scrn Urine Cocaine Screen U Marijuana (THC) Screen Ethyl Alcohol Blood Type O Positive Antibody Screen NEGATIVE Mental Status Exam Mental Status Exam Patient Appearance: Appropriate Patient Orientation: Person, Place, Time and Situation Level of Consciousness: Awake Patient Behavior: Appropriate and Cooperative Mood Description: Anxious Affect Description: Anxious Patient Cognition Impaired: No Ability to Follow Directions: Good Speech Pattern: Clear and Soft-Spoken Memory Description: Intact Hallucinations: None Delusions: Not Present Thought Process: Intact Thought Content: positive for Intact Judgement: Fair Medications Medications Current Medications Acetaminophen (Acetaminophen 325 Mg Tablet) 650 mg PO Q6H PRN PRN Reason: Pain, Mild (Pain Scale 1-3) Calcium Carbonate (Calcium Carbonate 500 Mg Tablet) 500 mg PO DAILY [facility] Last Admin: 03/15/24 10:21 Dose: 500 mg Cyanocobalamin (Cyanocobalamin (Vitamin B-12) 1,000 Mcg Tablet) 1,000 mcg PO DAILY [facility] Last Admin: 03/15/24 08:17 Dose: 1,000 mcg Cyclobenzaprine HCl (Cyclobenzaprine Hcl 5 Mg Tablet) 5 mg PO TID PRN PRN Reason: Muscle Spasm Duloxetine HCl (Duloxetine Hcl 30 Mg Capsule.Dr) 90 mg PO DAILY@0900 [facility] Enoxaparin Sodium (Enoxaparin Sodium 40 Mg/0.4 Ml Syringe) 40 mg SUBCUT BEDTIME [facility] Last Admin: 03/15/24 02:29 Dose: 40 mg Folic Acid (Folic Acid 1 Mg Tablet) 1 mg PO DAILY [facility] Last Admin: 03/15/24 08:17 Dose: 1 mg Dextrose/Sodium Chloride (D5ns) 1,000 mls @ 125 mls/hr IVCONT .Q8H [facility] Last Infusion: 03/15/24 09:21 Dose: Infused Lorazepam (Lorazepam 1 Mg Tablet) 1 mg PO DAILY PRN PRN Reason: Anxiety Magnesium Oxide (Magnesium Oxide 400 Mg Tablet) 800 mg PO DAILY [facility] Last Admin: 03/15/24 10:21 Dose: 800 mg Melatonin (Melatonin 3 Mg Tablet) 6 mg PO BEDTIME PRN PRN Reason: Insomnia Metoprolol Succinate (Metoprolol Succinate Er 100 Mg Tab.Er.24h) 100 mg PO DAILY [facility]; Protocol Ondansetron HCl (Ondansetron Hcl 4 Mg/2 Ml Vial) 4 mg IVPUSH Q8H PRN PRN Reason: Nausea and Vomiting Quetiapine Fumarate (Quetiapine Fumarate 25 Mg Tablet) 25 mg PO BID PRN PRN Reason: Anxiety Quetiapine Fumarate (Quetiapine Fumarate 50 Mg Tablet) 50 mg PO BEDTIME MRX1 PRN PRN Reason: Anxiety Sodium Chloride (0.9 % Sodium Chloride Flush 3 Ml Syringe) 3 ml IVFLUSH QSHIFT [facility] Last Admin: 03/15/24 07:25 Dose: Not Given Thiamine HCl (Thiamine Hcl 100 Mg Tablet) 100 mg PO DAILY [facility] Last Admin: 03/15/24 08:17 Dose: 100 mg Trazodone HCl (Trazodone Hcl 50 Mg Tablet) 50 mg PO BEDTIME PRN PRN Reason: Insomnia Allergies Allergies Allergy/AdvReac Type Severity Reaction Status Date / Time banana [BANANA] Allergy Unknown STOMACH Verified 03/14/24 20:38 PAINS metformin [METFORMIN] Allergy Unknown NAUSEA, Verified 03/14/24 20:38 DIARRHEA, stomach upset milk [MILK] Allergy Unknown CAN NOT Verified 03/14/24 20:38 TOLERATE Assessment & Plan Assessment & Plan (1) Hypocalcemia: Status: Acute Code(s): E83.51 - Hypocalcemia (2) Hypomagnesemia: Status: Acute Code(s): E83.42 - Hypomagnesemia (3) Acute hypokalemia: Status: Acute Code(s): E87.6 - Hypokalemia (4) Macrocytic anemia: Status: Acute Code(s): D53.9 - Nutritional anemia, unspecified (5) [place]: Status: Acute Code(s): R29.0 - [place] (6) Anxiety: Status: Acute Code(s): F41.9 - Anxiety disorder, unspecified Plan This is a 38-year-old female with pertinent history of generalized anxiety disorder, Cbexv-Kayagekdg-Gkajj syndrome status post ablation, essential hypertension who presents to the emergency department for evaluation of generalized weakness and muscle spasms. #. Symptomatic hypocalcemia/hypomagnesemia/hypokalemia: Repleting. Monitor electrolytes. Consulting Nephrology. #. Macrocytic anemia: Initiating B12 and folate supplementation #. Uncontrolled generalized anxiety disorder: Continue home mood stabilizers. Consulting psych to optimize #. Alcohol use disorder: Initiating thiamine and monitor CIWA #. Essential hypertension: On metoprolol Med rec pending DVT prophylaxis: Lovenox Full code Admit as inpatient and will require two night minimum hospital stay for close monitoring of symptoms, monitoring of electrolytes (as above), which is not possible in a lesser acute setting. Specialist consult pending PSYCHIATRY: recommend when restarting cymbalta to start with 30 mg daily x 2 days then 60mg daily thereafter add lorazeam 0.5mg bid prn anxiety attacks continue seroquel and trazodone for now pt can be referred to [facility] for interim medication management if unable to obtain appt with [facility] Prescriber in timely manner recommend consult with community navigation for community resources and support Total time managing care of this patient today __30__ minutes. Patient educated on: diagnosis, medication risk/benefits and therapeutic strategies Informed Consent: understands and further education needed
[2024-03-15 12:37] VITALS: BP 141/78; PULSE 97; RESP 18; TEMP 36.5; O2SAT 94
--- NOTE | 2024-03-15 12:47 | MHC.CM.PN ---
Met with patient in regards to discharge planning. Patient lives alone, ambulates independently and had no services prior to coming to the hospital. No services anticipated to be needed because patient is not homebound. PCP verified. Patient denies having a HCP. Information provided. Patient not interetested in completing one at this time. Patient received 3 Moderna vaccines. Patient's mother will transport her home when medically stable. Continue to monitor for d/c needs.
--- NOTE | 2024-03-15 13:03 | PM.CNNEP ---
History of Present Illness Reason for Consult Consult date: 03/21/24 Chief Complaint Chief complaint: Weakness History of Present Illness Narrative: 38-year-old female with pertinent history of generalized anxiety disorder, Kspfw-Ntqdhfxzj-Kzdfk syndrome status post ablation, essential hypertension who presents to the emergency department for evaluation of generalized weakness and muscle spasms. Patient states this has been ongoing for the last 2 months. She has had multiple episodes of muscle spasm throughout the day. Also has numbness and tingling of her face and lips. The muscle spasm feel like cramps in her bilateral upper and lower extremity. Admits occasional dizziness and lightheadedness. Patient denies nausea, vomiting or diarrhea. No change in urinary habits. Denies polyuria or polydipsia Review of Systems Constitutional: Denies fever(s) and Denies weight loss Cardiovascular: Denies chest pain Respiratory: Denies cough and Denies hemoptysis Gastrointestinal: Denies abdominal pain, Denies diarrhea and Denies nausea Musculoskeletal: Denies back pain Denies focal weakness PMFSH Past Medical History Medical History WPW (Evouw-Fobqoktkj-Odzqp syndrome) Abdominal pain Family History Family History Mother Cardiac abnormality Maternal Aunt Hx of breast cancer History of colon cancer History of ovarian cancer Surgical History Surgical History Hx of cholecystectomy Social History Social History Household Members: None Household Members Other:: alone Housing: Apartment Do you presently have visiting nurse or other home services: No Alcohol intake: current Alcohol intake frequency: holidays/special occasions only Patient Tobacco Use Status: Never used Tobacco Substance Use Type: Marijuana service: No Current occupational status: unemployed Gender identity: Female Meds Allergies Allergy/AdvReac Type Severity Reaction Status Date / Time banana [BANANA] Allergy Unknown STOMACH Verified 03/14/24 20:38 PAINS metformin [METFORMIN] Allergy Unknown NAUSEA, Verified 03/14/24 20:38 DIARRHEA, stomach upset milk [MILK] Allergy Unknown CAN NOT Verified 03/14/24 20:38 TOLERATE Active Medications: Current Medications Acetaminophen (Acetaminophen 325 Mg Tablet) 650 mg PO Q6H PRN PRN Reason: Pain, Mild (Pain Scale 1-3) Calcium Carbonate (Calcium Carbonate 500 Mg Tablet) 500 mg PO DAILY [facility] Last Admin: 03/15/24 10:21 Dose: 500 mg Cyanocobalamin (Cyanocobalamin (Vitamin B-12) 1,000 Mcg Tablet) 1,000 mcg PO DAILY [facility] Last Admin: 03/15/24 08:17 Dose: 1,000 mcg Cyclobenzaprine HCl (Cyclobenzaprine Hcl 5 Mg Tablet) 5 mg PO TID PRN PRN Reason: Muscle Spasm Duloxetine HCl (Duloxetine Hcl 30 Mg Capsule.Dr) 90 mg PO DAILY@0900 [facility] Enoxaparin Sodium (Enoxaparin Sodium 40 Mg/0.4 Ml Syringe) 40 mg SUBCUT BEDTIME [facility] Last Admin: 03/15/24 02:29 Dose: 40 mg Folic Acid (Folic Acid 1 Mg Tablet) 1 mg PO DAILY [facility] Last Admin: 03/15/24 08:17 Dose: 1 mg Dextrose/Sodium Chloride (D5ns) 1,000 mls @ 125 mls/hr IVCONT .Q8H [facility] Last Infusion: 03/15/24 09:21 Dose: Infused Lorazepam (Lorazepam 1 Mg Tablet) 1 mg PO DAILY PRN PRN Reason: Anxiety Magnesium Oxide (Magnesium Oxide 400 Mg Tablet) 800 mg PO DAILY [facility] Last Admin: 03/15/24 10:21 Dose: 800 mg Melatonin (Melatonin 3 Mg Tablet) 6 mg PO BEDTIME PRN PRN Reason: Insomnia Metoprolol Succinate (Metoprolol Succinate Er 100 Mg Tab.Er.24h) 100 mg PO DAILY [facility]; Protocol Ondansetron HCl (Ondansetron Hcl 4 Mg/2 Ml Vial) 4 mg IVPUSH Q8H PRN PRN Reason: Nausea and Vomiting Quetiapine Fumarate (Quetiapine Fumarate 25 Mg Tablet) 25 mg PO BID PRN PRN Reason: Anxiety Quetiapine Fumarate (Quetiapine Fumarate 50 Mg Tablet) 50 mg PO BEDTIME MRX1 PRN PRN Reason: Anxiety Sodium Chloride (0.9 % Sodium Chloride Flush 3 Ml Syringe) 3 ml IVFLUSH QSHIFT [facility] Last Admin: 03/15/24 07:25 Dose: Not Given Thiamine HCl (Thiamine Hcl 100 Mg Tablet) 100 mg PO DAILY [facility] Last Admin: 03/15/24 08:17 Dose: 100 mg Trazodone HCl (Trazodone Hcl 50 Mg Tablet) 50 mg PO BEDTIME PRN PRN Reason: Insomnia Home Medications ?Medication ?Instructions ?Recorded ?Confirmed ?Last Taken ?Type cyclobenzaprine 5 mg tablet 5 mg PO TID PRN Muscle Spasm 02/15/22 03/15/24 2 Days Ago History ~04/28/23 metoprolol succinate 100 mg 100 mg PO DAILY 02/15/22 03/15/24 03/14/24 History tablet,extended release 24 hr trazodone 50 mg tablet 50 mg PO BEDTIME PRN Insomnia 04/30/23 03/15/24 03/13/24 History duloxetine 30 mg capsule,delayed 90 mg PO DAILY@0900 03/15/24 03/15/24 03/14/24 History release lorazepam 1 mg tablet 1 mg PO DAILY PRN Anxiety 03/15/24 03/15/24 Unknown History quetiapine 25 mg tablet 25 mg PO BID PRN Anxiety 03/15/24 03/15/24 Unknown History quetiapine 50 mg tablet 50 mg PO BEDTIME PRN Anxiety 03/15/24 03/15/24 03/13/24 History Physical Exam Vital Signs: Last Vital Signs Temp 97.7 F 03/15/24 12:37 Pulse 97 03/15/24 12:37 Resp 18 03/15/24 12:37 BP 141/78 H 03/15/24 12:37 Pulse Ox 94 03/15/24 12:37 O2 Del Method Room Air 03/15/24 12:37 BMI result Body Mass Index 41.6 Const General: comfortable Nutritional Appearance: well nourished Orientation/consciousness: patient oriented x3 HEENT Head: No normal to inspection Mouth: moist mucous membranes Neck Neck: Yes supple and Yes no JVD Resp Auscultation: clear to auscultation bilaterally, no rales and rub present Cardio Jugular venous distension: no JVD Palpation: no palpable S3 and no palpable S4 Heart sounds: no rubs GI Palpation (GI): Soft to palpation and nontender Percussion: No Fluid wave present General: Yes no CVA tenderness Back/Spine/Pelvis Back: no CVA tenderness Skin General skin exam: no rashes or lesions noted Neuro General: patient oriented x3 Extrem General: Yes no pedal edema and No clubbing Results Lab Results 03/15/24 08:38 03/18/24 09:27 Lab results: Chemistry 03/14/24 03/15/24 03/15/24 20:57 04:22 08:38 Sodium 140 140 140 Potassium 2.2 L* 2.1 L* 2.3 L* Carbon Dioxide 37 H 31 H 30 H BUN 5 L 4 L 3 L Creatinine 0.74 0.64 0.64 Calcium 7.3 L D 6.6 L D 7.6 L D Phosphorus 3.1 2.2 L Hematology 03/14/24 03/15/24 03/15/24 20:57 04:22 08:38 WBC 9.4 8.3 Hgb 9.3 L D 8.5 L 9.3 L Plt Count 383 376 Urinalysis 03/14/24 21:44 Urine Color Yellow Urine Appearance Clear Urine pH 7.5 Ur Specific [place] 1.010 Urine Protein Negative Urine Glucose (UA) Negative Urine Ketones Negative Urine Blood Negative Urine Nitrite Negative Ur Leukocyte Esterase Negative Urine RBC 0-2 Urine WBC 0-5 Ur Squamous Epith Cells 3-5 Hyaline Casts 0-2 Urine Studies 03/15/24 09:40 Urine Creatinine 46.47 Assessment and Plan (1) Acute hypokalemia: Status: Acute (2) Hypomagnesemia: Status: Acute (3) Hypocalcemia: Status: Acute (4) Macrocytic anemia: Status: Acute Plan 38-year-old woman with severe hypokalemia with elevated total CO2/ metabolic alkalosis with hypertension along with hypercalcemia and hypophosphatemia. For step would be to rule out GI wasting versus urinary wasting of potassium. However given the finding of hypertension and alkalosis hyperaldosteronism should be ruled out. Recommendations 24 hour urine for potassium and aldosterone Serum aldosterone and plasma renin activity Check urine for sodium potassium chloride Replace potassium magnesium and calcium as needed. Check intact PTH Watch blood pressure once above workup is completed can consider adding spironolactone. Procedures Date of Service Date of Service: 03/21/24
[2024-03-15 14:47] LABS: Osmolality Urine 191 mosm/kg (373-1093)
--- NOTE | 2024-03-15 15:34 | PM.EVENT ---
Event Note Date of Service: 03/15/24 Event Note: This patient is seen and examined by hospitalist team this morning seen and exmained again Still has potassium of 2.3, low phosphorus Body spasms improving Physical exam and assessment and plan coordinated in APCs note, Agree with the plan in addition: Multiple electrolytic abnormalities: Patient need close monitoring of BMP, aggressive electrolytes replacements. nephrology eval Morbid obesity: Encouraged to lose weight, cutdown calories. Time Spent With Patient Time: Total time managing care of this patient today ____ minutes.
[2024-03-15 16:53] LABS: Creatinine Urine 37.27 mg/dL; Potassium Urine Random 9.2 mmol/L
[2024-03-15 17:02] LABS: Anion Gap 17 (12-20); Blood Urea Nitrogen 3 mg/dL (9-16); Calcium 7.4 mg/dL (8.4-10.2); Carbon Dioxide 26 mmol/L (22-29); Chloride 103 mmol/L (96-108); Creatinine Clr Calc Pharmacy 136.4; Estimated Glomerular Filt Rate > 60; Glucose Random 109 mg/dL (60-115); Potassium 3.3 mmol/L (3.3-5.1); Sodium 143 mmol/L (135-145)
[2024-03-15 17:42] VITALS: BP 170/88; PULSE 105; RESP 18; TEMP 36.7; O2SAT 99
[2024-03-15] MEDS: Sodium,Potassium Phosphates POWD.PACK 1 PACKET PO ×2 (18:00→20:48)
[2024-03-15 18:45] VITALS: BP 138/88; PULSE 104; RESP 18; TEMP 36.6; O2SAT 98
[2024-03-15] MEDS: 0.9 % Sodium Chloride Flush 3 ML SYRINGE IVFLUSH (20:48)
[2024-03-15] MEDS: LORazepam 1 MG TABLET PO (22:53)
[2024-03-16 03:13] VITALS: BP 149/91; PULSE 98; RESP 18; TEMP 36.6; O2SAT 94
[2024-03-16] MEDS: Dextrose 5 % and 0.9 % NaCl 1,000 ML 125 ML IVCONT (06:16)
[2024-03-16 07:09] LABS: Osmolality, Serum 291 mosm/kg (281-305)
[2024-03-16 07:17] LABS: Parathyroid Hormone Intact 305.6 pg/mL (8.7-77.1)
[2024-03-16 07:31] VITALS: BP 140/82; PULSE 111; RESP 18; TEMP 37.3; O2SAT 95
[2024-03-16] MEDS: 0.9 % Sodium Chloride Flush 3 ML SYRINGE IVFLUSH ×3 (08:42→21:17)
[2024-03-16] MEDS: Cyanocobalamin (Vitamin B-12) 1,000 MCG TABLET 1000 MCG PO (08:43)
[2024-03-16] MEDS: Folic Acid 1 MG TABLET PO (08:43)
[2024-03-16] MEDS: Thiamine HCL 100 MG TABLET PO (08:43)
[2024-03-16] MEDS: Magnesium Oxide 400 MG TABLET 800 MG PO (08:43)
[2024-03-16] MEDS: DULoxetine HCl 30 MG CAPSULE.DR 90 MG PO (08:43)
[2024-03-16] MEDS: Potassium Chloride ER 20 MEQ TAB.ER.PRT PO (08:43)
[2024-03-16] MEDS: Sodium,Potassium Phosphates POWD.PACK 1 PACKET PO ×4 (08:44→21:16)
[2024-03-16 08:46] VITALS: BP 159/95; PULSE 108
[2024-03-16] MEDS: Metoprolol Succinate ER 100 MG TAB.ER.24H PO (08:46)
[2024-03-16 10:10] LABS: Anion Gap 14 (12-20); Blood Urea Nitrogen < 3 mg/dL (9-16); Calcium 7.2 mg/dL (8.4-10.2); Carbon Dioxide 28 mmol/L (22-29); Chloride 102 mmol/L (96-108); Estimated Glomerular Filt Rate > 60; Glucose Random 126 mg/dL (60-115); Sodium 141 mmol/L (135-145)
[2024-03-16 10:13] LABS: Potassium 2.5 mmol/L (3.3-5.1)
[2024-03-16] MEDS: Potassium Chloride ER 20 MEQ TAB.ER.PRT 40 MEQ PO ×3 (10:59→18:02)
[2024-03-16] MEDS: Magnesium Sulfate/D5W 1 GM/100 ML PIGGYBACK IV (10:59)
--- NOTE | 2024-03-16 11:31 | MHC.CLN ---
NUTRITION CONSULT FOR WEIGHT LOSS >35#. REVIEW OF WEIGHT HX SHOWS WEIGHT LOSS X 11 MONTHS -25#, 9.6%. WEIGHT LOSS NOT SIGNIFICANT. BMI=41.6, OBESE. DIET=CARDIAC. NO ADDITIONAL NUTRITION INTERVENTIONS AT THIS TIME.
--- NOTE | 2024-03-16 12:03 | MHC.CM.PN ---
Per MD rounds no discharge today. Patient continues to require Monitoring of Lytes and replacements. DP is home self care. Patients mother will provide transportation home.
[2024-03-16] MEDS: Calcium Gluconate/NaCl,Iso-Osm 1 GM/50 ML PLAST..BAG IV (12:12)
[2024-03-16 15:05] VITALS: BP 149/99; PULSE 100; RESP 18; TEMP 36.3; O2SAT 94
--- NOTE | 2024-03-16 16:13 | HO.PM.IMPN ---
Subjective Subjective Date of Service: 03/16/24 Interval History: Hypokalemia Review of Systems muscle spasms seems to be improved no fever Physical Exam Vital Signs: Vital Signs: Last Vital Signs Temp 97.4 F 03/16/24 15:05 Pulse 100 03/16/24 15:05 Resp 18 03/16/24 15:05 BP 149/99 H 03/16/24 15:05 Pulse Ox 94 03/16/24 15:05 O2 Del Method Room Air 03/16/24 15:05 BMI result Body Mass Index 41.6 Appearance: Alert.? Oriented X3.? . cvs: rrr, [id number] , no murmur res: clear to auscultation ,no rhonchii or wheezing abd: no rebound or guarding ,nt, bs present. ext pulses present , no cyanosis . neuro: axo3 , nonfocal. Objective Data Active Medications Acetaminophen (Acetaminophen 325 Mg Tablet) 650 mg PO Q6H PRN PRN Reason: Pain, Mild (Pain Scale 1-3) Calcium Carbonate (Calcium Carbonate 500 Mg Tablet) 500 mg PO DAILY [facility] Last Admin: 03/16/24 08:43 Dose: 500 mg Documented By: GIANNI Cyanocobalamin (Cyanocobalamin (Vitamin B-12) 1,000 Mcg Tablet) 1,000 mcg PO DAILY [facility] Last Admin: 03/16/24 08:43 Dose: 1,000 mcg Documented By: GIANNI Cyclobenzaprine HCl (Cyclobenzaprine Hcl 5 Mg Tablet) 5 mg PO TID PRN PRN Reason: Muscle Spasm Duloxetine HCl (Duloxetine Hcl 30 Mg Doc.) 90 mg PO DAILY@0900 [facility] Last Admin: 03/16/24 08:43 Dose: 90 mg Documented By: GIANNI Enoxaparin Sodium (Enoxaparin Sodium 40 Mg/0.4 Ml Syringe) 40 mg SUBCUT BEDTIME [facility] Last Admin: 03/15/24 20:49 Dose: 40 mg Documented By: KATHY Folic Acid (Folic Acid 1 Mg Tablet) 1 mg PO DAILY [facility] Last Admin: 03/16/24 08:43 Dose: 1 mg Documented By: GIANNI Lorazepam (Lorazepam 1 Mg Tablet) 1 mg PO DAILY PRN PRN Reason: Anxiety Last Admin: 03/15/24 22:53 Dose: 1 mg Documented By: KATHY Magnesium Oxide (Magnesium Oxide 400 Mg Tablet) 800 mg PO DAILY [facility] Last Admin: 03/16/24 08:43 Dose: 800 mg Documented By: GIANNI Melatonin (Melatonin 3 Mg Tablet) 6 mg PO BEDTIME PRN PRN Reason: Insomnia Metoprolol Succinate (Metoprolol Succinate Er 100 Mg Tab.Er.24h) 100 mg PO DAILY [facility]; Protocol Last Admin: 03/16/24 08:46 Dose: 100 mg Documented By: GIANNI Ondansetron HCl (Ondansetron Hcl 4 Mg/2 Ml Vial) 4 mg IVPUSH Q8H PRN PRN Reason: Nausea and Vomiting Potassium Phos/Sodium Phos (Sodium,Potassium Phosphates Powd.Pack) 1 packet PO QID [facility] Last Admin: 03/16/24 12:20 Dose: 1 packet Documented By: GIANNI Quetiapine Fumarate (Quetiapine Fumarate 25 Mg Tablet) 25 mg PO BID PRN PRN Reason: Anxiety Quetiapine Fumarate (Quetiapine Fumarate 50 Mg Tablet) 50 mg PO BEDTIME MRX1 PRN PRN Reason: Anxiety Sodium Chloride (0.9 % Sodium Chloride Flush 3 Ml Syringe) 3 ml IVFLUSH QSHIFT [facility] Last Admin: 03/16/24 08:42 Dose: 3 ml Documented By: GIANNI Thiamine HCl (Thiamine Hcl 100 Mg Tablet) 100 mg PO DAILY [facility] Last Admin: 03/16/24 08:43 Dose: 100 mg Documented By: GIANNI Trazodone HCl (Trazodone Hcl 50 Mg Tablet) 50 mg PO BEDTIME PRN PRN Reason: Insomnia Labs 03/15/24 08:38 03/16/24 09:31 Labs: Laboratory Results - last 24 hr 03/15/24 03/15/24 03/16/24 14:28 16:36 05:46 Anion Gap 17 Estim Creat Clear Calc 136.4 Estimated GFR > 60 Random Glucose 109 Osmolality 291 Calcium 7.4 L PTH Intact 305.6 H Ur Random Sodium 66.0 Ur Random Potassium 9.2 Ur Random Chloride 32.0 Urine Creatinine 37.27 03/16/24 09:31 Anion Gap 14 Estim Creat Clear Calc 158.0 Estimated GFR > 60 Random Glucose 126 H Osmolality Calcium 7.2 L PTH Intact Ur Random Sodium Ur Random Potassium Ur Random Chloride Urine Creatinine Assessment and Plan (1) [place]: Status: Acute (2) Hypocalcemia: Status: Acute (3) Hypomagnesemia: Status: Acute (4) Acute hypokalemia: Status: Acute Assessment and Plan: 38-year-old female with pertinent history of generalized anxiety disorder, Hpxwh-Vovyqleyh-Nilxk syndrome status post ablation, essential hypertension who presents to the emergency department for evaluation of generalized weakness and muscle spasms. Symptomatic hypocalcemia/hypomagnesemia/hypokalemia: renin /renin activity pending aldosterone/renin ratio,aldosterone levels pending pth elevated Plan:continue repleted po potassium and calcium( calcium carbonate 500 mg daily). moniter renal function and Monitor electrolytes. Nephrology evaluation noted -follow up . Macrocytic anemia: Initiating B12 and folate supplementation Uncontrolled generalized anxiety disorder: Continue home mood stabilizers. Consulting psych to optimize Alcohol use disorder: Initiating thiamine and monitor CIWA Essential hypertension: On metoprolol DVT prophylaxis: Lovenox ongoing hospitalization need severe hypokalemia , mild hypocalcemia - repleted , need close monitoring of electrolytes (as above), which is not possible in a lesser acute setting. Specialist consult pending Quality Stroke Does the patient have a stroke diagnosis?: No VTE Prior VTE?: No VTE Risk Level:: Medical - moderate - high VTE Device Contraindication: Treatment Not Indicated VTE Drug Contraindication: N/A - Med Ordered
[2024-03-16 19:44] VITALS: BP 146/91; PULSE 98; RESP 16; TEMP 36.5; O2SAT 95
[2024-03-16] MEDS: Enoxaparin Sodium 40 MG/0.4 ML SYRINGE SUBCUT (21:17)
[2024-03-16] MEDS: LORazepam 1 MG TABLET PO (23:54)
[2024-03-17 04:00] VITALS: BP 163/85; PULSE 98; RESP 16; TEMP 36.6; O2SAT 95
[2024-03-17 07:53] VITALS: BP 141/88; PULSE 94; RESP 16; TEMP 36.7; O2SAT 95
[2024-03-17 09:00] VITALS: BP 143/88; PULSE 93
[2024-03-17] MEDS: Thiamine HCL 100 MG TABLET PO (09:00)
[2024-03-17] MEDS: Magnesium Oxide 400 MG TABLET 800 MG PO (09:00)
[2024-03-17] MEDS: Metoprolol Succinate ER 100 MG TAB.ER.24H PO (09:00)
[2024-03-17] MEDS: Folic Acid 1 MG TABLET PO (09:00)
[2024-03-17] MEDS: DULoxetine HCl 30 MG CAPSULE.DR 90 MG PO (09:00)
[2024-03-17] MEDS: Cyanocobalamin (Vitamin B-12) 1,000 MCG TABLET 1000 MCG PO (09:00)
[2024-03-17] MEDS: Sodium,Potassium Phosphates POWD.PACK 1 PACKET PO ×4 (09:01→21:01)
[2024-03-17] MEDS: 0.9 % Sodium Chloride Flush 3 ML SYRINGE IVFLUSH ×2 (09:04→16:40)
[2024-03-17 09:11] LABS: Anion Gap 13 (12-20); Blood Urea Nitrogen < 3 mg/dL (9-16); Calcium 7.4 mg/dL (8.4-10.2); Carbon Dioxide 24 mmol/L (22-29); Chloride 107 mmol/L (96-108); Creatinine Clr Calc Pharmacy 176.5; Estimated Glomerular Filt Rate > 60; Glucose Random 95 mg/dL (60-115); Potassium 3.1 mmol/L (3.3-5.1); Sodium 141 mmol/L (135-145)
--- NOTE | 2024-03-17 10:52 | HO.PM.IMPN ---
Subjective Subjective Date of Service: 03/17/24 Interval History: persistent hypokalemia Review of Systems muscle cramps seems improvin denies new c/o Physical Exam Vital Signs: Vital Signs: Last Vital Signs Temp 98.0 F 03/17/24 07:53 Pulse 93 03/17/24 09:00 Resp 16 03/17/24 07:53 BP 143/88 H 03/17/24 09:00 Pulse Ox 95 03/17/24 07:53 O2 Del Method Room Air 03/17/24 07:53 BMI result Body Mass Index 41.6 Appearance: Alert.? Oriented X3.? cvs: rrr, [id number] , no murmur res: clear to auscultation ,no rhonchii or wheezing abd: no rebound or guarding ,nt, bs present. ext pulses present , no cyanosis . neuro: axo3 , nonfocal. Objective Data Active Medications Acetaminophen (Acetaminophen 325 Mg Tablet) 650 mg PO Q6H PRN PRN Reason: Pain, Mild (Pain Scale 1-3) Calcium Carbonate (Calcium Carbonate 500 Mg Tablet) 500 mg PO DAILY [facility] Last Admin: 03/17/24 09:00 Dose: 500 mg Documented By: SABRINA Cyanocobalamin (Cyanocobalamin (Vitamin B-12) 1,000 Mcg Tablet) 1,000 mcg PO DAILY [facility] Last Admin: 03/17/24 09:00 Dose: 1,000 mcg Documented By: SABRINA Cyclobenzaprine HCl (Cyclobenzaprine Hcl 5 Mg Tablet) 5 mg PO TID PRN PRN Reason: Muscle Spasm Duloxetine HCl (Duloxetine Hcl 30 Mg Capsule.) 90 mg PO DAILY@0900 [facility] Last Admin: 03/17/24 09:00 Dose: 90 mg Documented By: SABRINA Folic Acid (Folic Acid 1 Mg Tablet) 1 mg PO DAILY [facility] Last Admin: 03/17/24 09:00 Dose: 1 mg Documented By: SABRINA Lorazepam (Lorazepam 1 Mg Tablet) 1 mg PO DAILY PRN PRN Reason: Anxiety Last Admin: 03/16/24 23:54 Dose: 1 mg Documented By: JEREMIAH Magnesium Oxide (Magnesium Oxide 400 Mg Tablet) 800 mg PO DAILY [facility] Last Admin: 03/17/24 09:00 Dose: 800 mg Documented By: SABRINA Melatonin (Melatonin 3 Mg Tablet) 6 mg PO BEDTIME PRN PRN Reason: Insomnia Metoprolol Succinate (Metoprolol Succinate Er 100 Mg Tab.Er.24h) 100 mg PO DAILY [facility]; Protocol Last Admin: 03/17/24 09:00 Dose: 100 mg Documented By: SABRINA Ondansetron HCl (Ondansetron Hcl 4 Mg/2 Ml Vial) 4 mg IVPUSH Q8H PRN PRN Reason: Nausea and Vomiting Potassium Phos/Sodium Phos (Sodium,Potassium Phosphates Powd.Pack) 1 packet PO QID [facility] Last Admin: 03/17/24 09:01 Dose: 1 packet Documented By: SABRNIA Quetiapine Fumarate (Quetiapine Fumarate 25 Mg Tablet) 25 mg PO BID PRN PRN Reason: Anxiety Quetiapine Fumarate (Quetiapine Fumarate 50 Mg Tablet) 50 mg PO BEDTIME MRX1 PRN PRN Reason: Anxiety Sodium Chloride (0.9 % Sodium Chloride Flush 3 Ml Syringe) 3 ml IVFLUSH QSHIFT [facility] Last Admin: 03/17/24 09:04 Dose: 3 ml Documented By: SABRINA Thiamine HCl (Thiamine Hcl 100 Mg Tablet) 100 mg PO DAILY [facility] Last Admin: 03/17/24 09:00 Dose: 100 mg Documented By: SABRINA Trazodone HCl (Trazodone Hcl 50 Mg Tablet) 50 mg PO BEDTIME PRN PRN Reason: Insomnia Labs 03/15/24 08:38 03/17/24 08:00 Labs: Laboratory Results - last 24 hr 03/16/24 03/17/24 16:36 08:00 Hold Purple Top SEE NOTE Anion Gap 13 Estim Creat Clear Calc 176.5 Estimated GFR > 60 Random Glucose 95 Calcium 7.4 L Magnesium 2.0 Assessment and Plan (1) [place]: Status: Acute (2) Hypocalcemia: Status: Acute (3) Hypomagnesemia: Status: Acute (4) Acute hypokalemia: Status: Acute Assessment and Plan: 38-year-old female with pertinent history of generalized anxiety disorder, Olqkv-Sglcfccbc-Mbvuo syndrome status post ablation, essential hypertension who presents to the emergency department for evaluation of generalized weakness and muscle spasms. Symptomatic hypocalcemia/hypomagnesemia/hypokalemia: renin /renin activity pending aldosterone/renin ratio,aldosterone levels pending pth elevated Plan:continue repleted po potassium and calcium( calcium carbonate 500 mg daily). moniter renal function and Monitor electrolytes. Nephrology evaluation noted -follow up . Macrocytic anemia: Initiating B12 and folate supplementation(low folate ) iron profile and ferritin seems fine patient denies any stephanie bleeding or melena. Uncontrolled generalized anxiety disorder: Continue home mood stabilizers. Consulting psych to optimize Alcohol use disorder: Initiating thiamine and monitor CIWA Essential hypertension: On metoprolol DVT prophylaxis: Lovenox ongoing hospitalization need severe hypokalemia , hypocalcemia - requires aggressive repletion -still low , need close monitoring of electrolytes (as above), which is not possible in a lesser acute setting. Specialist consult pending Quality Stroke Does the patient have a stroke diagnosis?: No VTE Prior VTE?: No VTE Risk Level:: Medical - moderate - high VTE Device Contraindication: Treatment Not Indicated VTE Drug Contraindication: N/A - Med Ordered
[2024-03-17] MEDS: Potassium Chloride ER 20 MEQ TAB.ER.PRT 40 MEQ PO (12:31)
[2024-03-17 15:21] VITALS: BP 148/74; PULSE 100; RESP 20; TEMP 36.4; O2SAT 94
--- NOTE | 2024-03-17 17:51 | PC.NURSE ---
24 hour urine started at 0700.
[2024-03-17 19:17] VITALS: BP 146/97; PULSE 93; RESP 18; TEMP 36.4; O2SAT 96
[2024-03-17] MEDS: LORazepam 1 MG TABLET PO (21:01)
[2024-03-18 03:59] VITALS: BP 135/89; PULSE 98; RESP 16; TEMP 36.9; O2SAT 92
[2024-03-18 07:42] VITALS: BP 150/92; PULSE 104; RESP 18; TEMP 36.3; O2SAT 94
[2024-03-18] MEDS: Folic Acid 1 MG TABLET PO (09:09)
[2024-03-18] MEDS: 0.9 % Sodium Chloride Flush 3 ML SYRINGE IVFLUSH (09:09)
[2024-03-18] MEDS: Cyanocobalamin (Vitamin B-12) 1,000 MCG TABLET 1000 MCG PO (09:10)
[2024-03-18] MEDS: Magnesium Oxide 400 MG TABLET 800 MG PO (09:10)
[2024-03-18 09:11] VITALS: BP 152/89; PULSE 102
[2024-03-18] MEDS: Thiamine HCL 100 MG TABLET PO (09:11)
[2024-03-18] MEDS: Sodium,Potassium Phosphates POWD.PACK 1 PACKET PO (09:11)
[2024-03-18] MEDS: Metoprolol Succinate ER 100 MG TAB.ER.24H PO (09:11)
[2024-03-18] MEDS: DULoxetine HCl 30 MG CAPSULE.DR 90 MG PO (09:11)
[2024-03-18 10:26] LABS: Anion Gap 15 (12-20); Blood Urea Nitrogen 3 mg/dL (9-16); Calcium 7.7 mg/dL (8.4-10.2); Carbon Dioxide 21 mmol/L (22-29); Chloride 105 mmol/L (96-108); Creatinine Clr Calc Pharmacy 150.1; Estimated Glomerular Filt Rate > 60; Glucose Random 126 mg/dL (60-115); Potassium 3.4 mmol/L (3.3-5.1); Sodium 138 mmol/L (135-145)
--- NOTE | 2024-03-18 11:21 | MHC.CM.PN ---
Patient is medically cleared for dc home self care. Private transport ~12pm. RN aware.
--- NOTE | 2024-03-18 11:26 | PM.DS ---
DS: Providers Provider Date of Service: 03/18/24 Date of admission: 03/15/24 00:48 Date of discharge: 03/18/24 Primary care physician: Radha Blum MD Consults: 03/15/24 00:58 Consult to Nephrology Routine Consulting Provider: [facility] Reason for consultation: Symptomatic hypokalemia, hypocalcemia, hypomagnesemia and macrocytic anemia 03/15/24 01:01 Consult to Psychiatry Routine Consulting Provider: Psych [facility] Reason for consultation: Uncontrolled anxiety Attending physician on discharge: Natty Benavides Discharging clinician: Natty Benavides DS: Diagnosis Discharge Diagnosis (1) [place]: Status: Acute (2) Hypocalcemia: Status: Acute (3) Hypomagnesemia: Status: Acute (4) Acute hypokalemia: Status: Acute DS: Summary Hospital Course Hospital Course: 38-year-old female with pertinent history of generalized anxiety disorder, Sovnk-Ftlmehlwr-Qrmiv syndrome status post ablation, essential hypertension who presents to the emergency department for evaluation of generalized weakness and muscle spasms. Patient states this has been ongoing for the last 2 months. She has had multiple episodes of muscle spasm throughout the day. Also has numbness and tingling of her face and lips. The muscle spasm feel like cramps in her bilateral upper and lower extremity. Admits occasional dizziness and lightheadedness. Patient denies nausea, vomiting or diarrhea. No change in urinary habits. This has never happened before. Patient states she has been stress for the last 2 months as she lost her job. She has increased alcohol consumption in the last 2 months. No history of alcohol withdrawal. Also has a history of palpitations but had a complete negative workup in 2021 including a normal echo and normal 5 day Holter monitor. No fever, chills, chest discomfort, shortness of breath, abdominal pain, changes in urinary or bowel habits. Patient had an episode of tetany in the ER when BP cuff was inflating. In the emergency department patient was found to have low potassium, low magnesium, low calcium and macrocytic anemia Hospital course: Patient came with Symptomatic hypocalcemia/hypomagnesemia/hypokalemia:had spasms : repleted electrolytes aggressively, her electrolytes seems to be improved ,we will send her with the some electrolyte supply: Potassium 10 mEq daily for 14 days, magnesium 800 mg daily for 1 month,oscalD 1tab daily . labs : her pth elevated (305) ,vitamin d ,renin levels ,renin actvity ,aldosterone , aldosterone /renin ratio pending. patient has macrocytic anemia : moniter cbc outpatient seems to found to have folate deficiency ,also b12 def. started on folate 1 mg daily and b12 1000mcg po daily. plan: Potassium 10 mEq daily for 14 days, magnesium 800 mg daily for 1 month,oscalD 1tab daily . follow up cbc ,bmp,magnesium outpatient. above labs testing ,further management outpatient with pcp and nephrology ( nephro is aware to make appointment , also patient was strongly advised to call nephrology office if does not hear from nephrology). Above management discussed with the patient in detail length she understand and in agreement with the above plan, time spent 40 minutes and 50% time spent on counseling. Time Attestation Total time managing care of this patient today: 40 mintues. Discharge Coordination Time (in mins): 40 min Quality: Safe Use of Opioids Does Pt have an Active Cancer Diagnosis on the Problem List?: No Quality: Stroke Does the patient have a stroke diagnosis?: No Physical Exam Vital Signs: Vital Signs: Last Vital Signs Temp 97.3 F 03/18/24 07:42 Pulse 102 H 03/18/24 09:11 Resp 18 03/18/24 07:42 BP 152/89 H 03/18/24 09:11 Pulse Ox 94 03/18/24 07:42 O2 Del Method Room Air 03/18/24 07:42 BMI result Body Mass Index 41.6 Appearance: Alert.? Oriented X3.? cvs: rrr, [id number] , no murmur res: clear to auscultation ,no rhonchii or wheezing abd: no rebound or guarding ,nt, bs present. ext pulses present , no cyanosis . neuro: axo3 , nonfocal. DS: Data Data Completed and Pending Labs on day of discharge: Laboratory Results - last 24 hr 03/18/24 03/18/24 03/18/24 09:27 Unknown Unknown Hold Purple Top SEE NOTE Sodium 138 Potassium 3.4 Chloride 105 Carbon Dioxide 21 L Anion Gap 15 BUN 3 L Creatinine 0.60 Estim Creat Clear Calc 150.1 Estimated GFR > 60 Random Glucose 126 H Calcium 7.7 L Ur 24 Hour Volume Cancelled Cancelled Ur Creatinine mg/dL Cancelled Ur Creatinine 24 Hour Ur Potassium 24 Hour Ur Total Volume Ur Aldosterone 24 Hr Urine Creatinine 03/18/24 03/18/24 Unknown Unknown Hold Purple Top Sodium Potassium Chloride Carbon Dioxide Anion Gap BUN Creatinine Estim Creat Clear Calc Estimated GFR Random Glucose Calcium Ur 24 Hour Volume Ur Creatinine mg/dL Cancelled Ur Creatinine 24 Hour Cancelled Cancelled Ur Potassium 24 Hour Cancelled Ur Total Volume Cancelled Ur Aldosterone 24 Hr Cancelled Urine Creatinine Cancelled Discharge Plan Discharge Anticipated Discharge Date/Time: 03/18/24 10:59 Patient Disposition: Home, Self-Care Discharge Diagnosis: Multiple electrolytic abnormalities, muscle spasm. Referrals: Radha Blum MD [Primary Care Provider] - 1 Week Bin Sweet MD [Physician] - 1 Week Discharge Medications: New cyanocobalamin (vitamin B-12) [Vitamin B-12] 1,000 mcg Tablet 1,000 mcg PO DAILY Qty: 30 0RF magnesium oxide 400 mg (241.3 mg magnesium) Tablet 800 mg PO DAILY Qty: 30 0RF folic acid 1 mg Tablet 1 mg PO DAILY Qty: 30 0RF potassium chloride 10 mEq capsule, extended release 10 meq PO DAILY Qty: 14 0RF calcium carbonate-vitamin D3 250 mg-3.125 mcg (125 unit) Tablet 1 tab PO DAILY Qty: 30 0RF Continued trazodone 50 mg Tablet 50 mg PO BEDTIME PRN (Reason: Insomnia) lorazepam 1 mg tablet 1 mg PO DAILY PRN (Reason: Anxiety) duloxetine 30 mg capsule,delayed release(DR/EC) 90 mg PO DAILY@0900 quetiapine 25 mg tablet 25 mg PO BID PRN (Reason: Anxiety) quetiapine 50 mg tablet 50 mg PO BEDTIME PRN (Reason: Anxiety) Rx Instructions: MAY REPEAT ONCE metoprolol succinate 100 mg tablet extended release 24 hr 100 mg PO DAILY cyclobenzaprine 5 mg tablet 5 mg PO TID PRN (Reason: Muscle Spasm) Discharge Orders: Discharge Order (Routine); Ordered 03/18/24 Ordered By: Natty Benavides Diet: Advance to usual diet Activity on Discharge: As tolerated Stand Alone Forms: Patient Portal Discharge page Print Language: Amharic Other Ambulatory Orders: Basic Metabolic Panel (Routine) Timeframe: 1 Week Facility: [facility] - Location: Laboratory Ordered By: Natty Benavides Complete Blood Count no Diff (Routine) Timeframe: 1 Week Facility: [facility] - Location: Laboratory Ordered By: Natty Benavides Magnesium (Routine) Timeframe: 1 Week Facility: [facility] - Location: Laboratory Ordered By: Natty Benavides Care Plan Goals: Patient came with Symptomatic hypocalcemia/hypomagnesemia/hypokalemia:had spasms : repleted electrolytes aggressively, her electrolytes seems to be improved ,we will send her with the some electrolyte supply: Potassium 10 mEq daily for 14 days, magnesium 800 mg daily for 1 month,oscalD 1tab daily . labs : her pth elevated (305) ,vitamin d ,renin levels ,renin actvity ,aldosterone , aldosterone /renin ratio pending. patient has macrocytic anemia : moniter cbc outpatient seems to found to have folate deficiency ,also b12 def. started on folate 1 mg daily and b12 1000mcg po daily. follow up bmp,magnesium outpatient. Health Concerns: as above. Plan of Treatment: as above. Assessment: as above. Discharge Date/Time: 03/18/24 12:37
[2024-03-18] MEDS: Calcium + Vitamin D 250 MG TABLET 500 MG PO (11:33)
[2024-03-21 14:19] LABS: VITAMIN D (1,25 OH) D3 68 pg/mL; Vit D (1,25-Dihydroxy) Total 68 pg/mL (18-72); Vitamin D (1,25 OH) D2 <8 pg/mL
[2024-03-21 16:38] LABS: Renin 0.27 ng/mL/h (0.25-5.82)
[2024-03-22 16:44] LABS: Plasma Renin Activity 0.33 ng/mL/h (0.25-5.82)
== END 2024-03-18 12:37 | disposition home or self-care (01) | DRG 425 ==
LOC: HO.ED 20:54 → HO.EDOVER 03-15 00:52 → HO.S3 03-15 16:10
PROVIDERS: Internal Medicine Hypertension Specialist; Physician Assistant; Admitting Provider Student in an Organized Health Care Education/Training Program; Emergency Provider Emergency Medicine Emergency Medical Services; PCP Internal Medicine; Visit Provider Internal Medicine
DX: E87.6 Hypokalemia (principal); E83.51 Hypocalcemia; E87.3 Alkalosis; E53.8 Deficiency of other specified B group vitamins; R29.0 Tetany; D53.9 Nutritional anemia, unspecified; F10.90 Alcohol use, unspecified, uncomplicated; E83.42 Hypomagnesemia; F41.1 Generalized anxiety disorder; I10 Essential (primary) hypertension; Z79.899 Other long term (current) drug therapy
CPT/HCPCS: 36415; 80048; 80053; 80307; 81001; 82088; 82436; 82570; 82607; 82652; 82728; 82746; 83540; 83690; 83735; 83930; 83935; 83970; 84100; 84132; 84133; 84244; 84300; 84443; 84484; 84702; 85014; 85018; 85025; 86850; 86900; 86901; 93005; 99285; J0613; J1650; J3411; J3420; J3475; J3480

== ENCOUNTER → 2024-03-14 20:35 | Outpatient (BNV) | payer OTHER, SELFPAY | PROVIDERS: Admitting Provider Student in an Organized Health Care Education/Training Program; Emergency Provider Emergency Medicine Emergency Medical Services; PCP Internal Medicine; Visit Provider Internal Medicine | DX: R00.0 Tachycardia, unspecified (principal); R94.31 Abnormal electrocardiogram [ECG] [EKG] | CPT/HCPCS: 93010 ==

== ENCOUNTER → 2024-03-15 00:48 | Outpatient (BNV) | payer OTHER, SELFPAY | PROVIDERS: Admitting Provider Student in an Organized Health Care Education/Training Program; Emergency Provider Emergency Medicine Emergency Medical Services; PCP Internal Medicine; Visit Provider Student in an Organized Health Care Education/Training Program | DX: R29.0 Tetany (principal); E83.51 Hypocalcemia; E83.42 Hypomagnesemia; E87.6 Hypokalemia | CPT/HCPCS: 99223; 99231; 99232; 99239; 99499 ==

== ENCOUNTER → 2024-03-15 00:48 | Outpatient (BNV) | payer OTHER, SELFPAY | PROVIDERS: Admitting Provider Student in an Organized Health Care Education/Training Program; Emergency Provider Emergency Medicine Emergency Medical Services; PCP Internal Medicine; Visit Provider Clinical Nurse Specialist Psychiatric/Mental Health | DX: F41.9 Anxiety disorder, unspecified (principal); E83.51 Hypocalcemia; E83.42 Hypomagnesemia; E87.6 Hypokalemia; D53.9 Nutritional anemia, unspecified; R29.0 Tetany | CPT/HCPCS: 99222; 99232 ==

== ENCOUNTER → 2024-03-15 00:48 | Outpatient (BNV) | payer OTHER, SELFPAY | PROVIDERS: Admitting Provider Student in an Organized Health Care Education/Training Program; Emergency Provider Emergency Medicine Emergency Medical Services; PCP Internal Medicine; Visit Provider Internal Medicine Hypertension Specialist | DX: E87.6 Hypokalemia (principal); E83.42 Hypomagnesemia; E83.51 Hypocalcemia; D53.9 Nutritional anemia, unspecified | CPT/HCPCS: 99223 ==

== ENCOUNTER 2024-03-22 14:54 | Outpatient (AMB) | payer OTHER, SELFPAY ==
[2024-03-22 14:53] VITALS: BP 130/98; PULSE 105; O2SAT 96; BMI 41.3
--- NOTE | 2024-03-22 14:53 | HO.NEPHOV ---
Vital Signs 03/22/24 14:53 Height 5 ft 3 in Weight 233 lb BMI 41.3 BP 130/98 H Blood Pressure Location Lt brachial Position Sitting Pulse 105 H Pulse Source Pulse Oximeter Pulse Oximetry (%) 96 Oxygen Delivery Method Room Air Intake Visit Reasons: [facility]/ Confirmed [employer] Required: No Accompanied by: Self / Same As Patient Allergies banana [BANANA] Allergy (Unknown, Verified 03/22/24 14:55) STOMACH PAINS metformin [METFORMIN] Allergy (Unknown, Verified 03/22/24 14:55) NAUSEA, DIARRHEA, stomach upset milk [MILK] Allergy (Unknown, Verified 03/22/24 14:55) CAN NOT TOLERATE HPI Comments Details: 38-year-old female with pertinent history of generalized anxiety disorder, Fceno-Yznnuzcml-Njqes syndrome status post ablation, essential hypertension who presented to the emergency department for evaluation of generalized weakness and muscle spasms. She had this for 2 months. She has had multiple episodes of muscle spasm throughout the day. Also had numbness and tingling of her face and lips. The muscle spasm feel like cramps in her bilateral upper and lower extremity. Admits occasional dizziness and lightheadedness. Patient denied nausea, vomiting or diarrhea. No change in urinary habits. Denies polyuria or polydipsia She has been consuming excessive amounts of alcohol for about 2 months. She was found to have severe Hypokalemia - K. of 2.5 and severe Hypocalcemia and hypomagnesemia with ALkalosis -tCO2 of 37 Corresponding Aldosterone was < 1 and Plasma Renin activity of 0.33 PA/PRA was 3.03 BP was 150/80 in ER Electrolytes were replaced and she was discharged Here for follow up Feels much better [facility] Medical History WPW (Nfapp-Lyffrrkxg-Hjwwp syndrome) Abdominal pain Surgical History Hx of cholecystectomy Family History Mother Cardiac abnormality Maternal Aunt Hx of breast cancer History of colon cancer History of ovarian cancer Social History Household Members: None Household Members Other:: alone Housing: Apartment Do you presently have visiting nurse or other home services: No Alcohol intake: current Alcohol intake frequency: holidays/special occasions only Patient Tobacco Use Status: Never used Tobacco Substance Use Type: Marijuana service: No Current occupational status: unemployed Gender identity: Female Female Reproductive History Menstrual Age of Menarche: 12 Physical Exam Vital Signs: Last Vital Signs Pulse 105 H 03/22/24 14:53 BP 130/98 H 03/22/24 14:53 Pulse Ox 96 03/22/24 14:53 Oxygen Delivery Method Room Air 03/22/24 14:53 BMI result Body Mass Index 41.3 Const General: comfortable Nutritional Appearance: well nourished Orientation/consciousness: patient oriented x3 HEENT Head: No normal to inspection Mouth: moist mucous membranes Neck Neck: Yes supple and Yes no JVD Resp Auscultation: clear to auscultation bilaterally, no rales and rub present Cardio Jugular venous distension: no JVD Palpation: no palpable S3 and no palpable S4 Heart sounds: no rubs GI Palpation (GI): Soft to palpation and nontender Percussion: No Fluid wave present General: Yes no CVA tenderness Back/Spine/Pelvis Back: no CVA tenderness Skin General skin exam: no rashes or lesions noted Neuro General: patient oriented x3 Extrem General: Yes no pedal edema and No clubbing Results Reviewed Nephrology Results: Hgb 9.3 g/dl (12.0-16.0) L 03/15/24 WBC 8.3 X10*3/uL (4.8-10.8) 03/15/24 Plt Count 376 X10*3/uL (160-400) 03/15/24 Sodium 141 mmol/L (135-145) 03/22/24 Potassium 4.1 mmol/L (3.3-5.1) 03/22/24 Chloride 107 mmol/L (96-108) 03/22/24 Carbon Dioxide 23 mmol/L (22-29) 03/22/24 BUN 4 mg/dL (9-16) L 03/22/24 Creatinine 0.69 mg/dL (0.5-1.4) 03/22/24 Calcium 9.4 mg/dL (8.4-10.2) 03/22/24 Phosphorus 1.9 mg/dL (2.7-4.5) L 03/22/24 PTH Intact 305.6 pg/mL (8.7-77.1) H 03/16/24 Urine Protein Negative mg/dL (Neg-Trace) 03/14/24 Urine Creatinine 37.27 mg/dL 03/15/24 Assessment & Plan Assessment & Plan (1) Hypokalemia: Code(s): E87.6 - Hypokalemia Category: Medical (2) Hypocalcemia: Code(s): E83.51 - Hypocalcemia Category: Medical (3) Hypomagnesemia: Code(s): E83.42 - Hypomagnesemia Category: Medical (4) HTN (hypertension): Code(s): I10 - Essential (primary) hypertension Category: Medical Plan 38 yr old woman with HTN and elevated BMI of 41 with a h/o severe hypokalemia , hypomagnesemia and Hypocalcemia most likely secondary to alcohol use. She had alkalosis However, Plasma Aldosterone is NOT elevated and PA/PRA is only 3.03 , making hyperaldosteronism unlikely Suggest Abstain from alcohol Replace Potassium, Magnesium, CAlcium Stay on low salt diet Needs weight loss Stay on current antihypertensives Repeat labs ordered Orders: Orders Basic Metabolic Panel Today E83.42 - Hypomagnesemia, E83.51 - Hypocalcemia Phosphorus Today E83.42 - Hypomagnesemia, E83.51 - Hypocalcemia Magnesium Today E83.42 - Hypomagnesemia, E83.51 - Hypocalcemia Coding Level of Care Code Est Pt Level 4 (98241) Diagnoses Hypokalemia E87.6 Hypocalcemia E83.51 Hypomagnesemia E83.42 HTN (hypertension) I10
== END 2024-03-22 15:08 | disposition home or self-care (01) ==
PROVIDERS: PCP Internal Medicine; Visit Provider Internal Medicine Hypertension Specialist
DX: E87.6 Hypokalemia (principal); E83.51 Hypocalcemia; E83.42 Hypomagnesemia; I10 Essential (primary) hypertension
CPT/HCPCS: 99214

== ENCOUNTER 2024-03-22 14:54 | Outpatient (REF) | payer OTHER, SELFPAY ==
[2024-03-22 18:49] LABS: Anion Gap 15 (12-20); Blood Urea Nitrogen 4 mg/dL (9-16); Calcium 9.4 mg/dL (8.4-10.2); Carbon Dioxide 23 mmol/L (22-29); Chloride 107 mmol/L (96-108); Estimated Glomerular Filt Rate > 60; Glucose Random 83 mg/dL (60-115); Magnesium 2.1 mg/dL (1.6-2.6); Phosphorus 1.9 mg/dL (2.7-4.5); Potassium 4.1 mmol/L (3.3-5.1); Sodium 141 mmol/L (135-145)
== END 2024-03-22 14:55 | disposition home or self-care (01) ==
LOC: HO.LAB 14:54
PROVIDERS: PCP Internal Medicine; Visit Provider Internal Medicine Hypertension Specialist
DX: E83.51 Hypocalcemia (principal); E83.42 Hypomagnesemia; I10 Essential (primary) hypertension; E87.6 Hypokalemia
CPT/HCPCS: 36415; 80048; 83735; 84100; 99212

== ENCOUNTER 2024-04-12 13:11 | Outpatient (AMB) | payer OTHER, SELFPAY ==
[2024-04-12 13:22] VITALS: BP 134/88; PULSE 94; O2SAT 99; BMI 40.9
--- NOTE | 2024-04-12 13:22 | HO.NEPHOV ---
Vital Signs 04/12/24 13:22 04/12/24 13:40 Height 5 ft 3 in Weight 231 lb BMI 40.9 BP 134/88 130/84 Blood Pressure Location Rt brachial Rt brachial Position Sitting Sitting Pulse 94 Pulse Source Pulse Oximeter Pulse Oximetry (%) 99 Oxygen Delivery Method Room Air Intake Visit Reasons: Hypocalcemia/ 2 weeks fu/ LVM Student Records Coordinator Required: No Accompanied by: Self / Same As Patient Allergies banana [BANANA] Allergy (Unknown, Verified 04/12/24 13:22) STOMACH PAINS metformin [METFORMIN] Allergy (Unknown, Verified 04/12/24 13:22) NAUSEA, DIARRHEA, stomach upset milk [MILK] Allergy (Unknown, Verified 04/12/24 13:22) CAN NOT TOLERATE Medication List - Last Reconciled 04/12/24 by Livan Moijca MD calcium carbonate-vitamin D3 250 mg-3.125 mcg (125 unit) 1 tab PO DAILY cyanocobalamin (vitamin B-12) (Vitamin B-12) 1,000 mcg PO DAILY cyclobenzaprine 5 mg PO TID PRN duloxetine 90 mg PO DAILY@0900 folic acid 1 mg PO DAILY lorazepam 1 mg PO DAILY PRN metoprolol succinate ER 100 mg PO DAILY quetiapine 25 mg PO BID PRN quetiapine 50 mg PO BEDTIME PRN trazodone 50 mg PO BEDTIME PRN HPI Comments Details: 38-year-old female with pertinent history of generalized anxiety disorder, Bjbex-Tddosegcp-Jlnaq syndrome status post ablation, essential hypertension who presented to the emergency department for evaluation of generalized weakness and muscle spasms. She had this for 2 months. She has had multiple episodes of muscle spasm throughout the day. Also had numbness and tingling of her face and lips. The muscle spasm feel like cramps in her bilateral upper and lower extremity. Admits occasional dizziness and lightheadedness. Patient denied nausea, vomiting or diarrhea. No change in urinary habits. Denies polyuria or polydipsia She has been consuming excessive amounts of alcohol for about 2 months. She was found to have severe Hypokalemia - K. of 2.5 and severe Hypocalcemia and hypomagnesemia with ALkalosis -tCO2 of 37 Corresponding Aldosterone was < 1 and Plasma Renin activity of 0.33 PA/PRA was 3.03 BP was 150/80 in ER Electrolytes were replaced and she was discharged Here for follow up Feels much better 04/12/24 Has cut back on alcohol Ran out of KCL,Mag, MVT a week ago PFSH Medical History WPW (Tnkkz-Awrygkorz-Jqrja syndrome) Abdominal pain Surgical History Hx of cholecystectomy Family History Mother Cardiac abnormality Maternal Aunt Hx of breast cancer History of colon cancer History of ovarian cancer Social History Household Members: None Household Members Other:: alone Housing: Apartment Do you presently have visiting nurse or other home services: No Alcohol intake: current Alcohol intake frequency: holidays/special occasions only Patient Tobacco Use Status: Never used Tobacco Substance Use Type: Marijuana service: No Current occupational status: unemployed Gender identity: Female Female Reproductive History Menstrual Age of Menarche: 12 Physical Exam Vital Signs: Last Vital Signs Pulse 94 04/12/24 13:22 BP 134/88 04/12/24 13:22 Pulse Ox 99 04/12/24 13:22 Oxygen Delivery Method Room Air 04/12/24 13:22 BMI result Body Mass Index 40.9 Const General: comfortable Nutritional Appearance: well nourished Orientation/consciousness: patient oriented x3 HEENT Head: No normal to inspection Mouth: moist mucous membranes Neck Neck: Yes supple and Yes no JVD Resp Auscultation: clear to auscultation bilaterally, no rales and rub present Cardio Jugular venous distension: no JVD Palpation: no palpable S3 and no palpable S4 Heart sounds: no rubs GI Palpation (GI): Soft to palpation and nontender Percussion: No Fluid wave present General: Yes no CVA tenderness Back/Spine/Pelvis Back: no CVA tenderness Skin General skin exam: no rashes or lesions noted Neuro General: patient oriented x3 Extrem General: Yes no pedal edema and No clubbing Results Reviewed Nephrology Results: Hgb 9.3 g/dl (12.0-16.0) L 03/15/24 WBC 8.3 X10*3/uL (4.8-10.8) 03/15/24 Plt Count 376 X10*3/uL (160-400) 03/15/24 Sodium 141 mmol/L (135-145) 03/22/24 Potassium 4.1 mmol/L (3.3-5.1) 03/22/24 Chloride 107 mmol/L (96-108) 03/22/24 Carbon Dioxide 23 mmol/L (22-29) 03/22/24 BUN 4 mg/dL (9-16) L 03/22/24 Creatinine 0.69 mg/dL (0.5-1.4) 03/22/24 Calcium 9.4 mg/dL (8.4-10.2) 03/22/24 Phosphorus 1.9 mg/dL (2.7-4.5) L 03/22/24 PTH Intact 305.6 pg/mL (8.7-77.1) H 03/16/24 Urine Protein Negative mg/dL (Neg-Trace) 03/14/24 Urine Creatinine 37.27 mg/dL 03/15/24 Assessment & Plan Assessment & Plan (1) Hypokalemia: Code(s): E87.6 - Hypokalemia Category: Medical (2) Hypocalcemia: Code(s): E83.51 - Hypocalcemia Category: Medical (3) Hypomagnesemia: Code(s): E83.42 - Hypomagnesemia Category: Medical (4) HTN (hypertension): Code(s): I10 - Essential (primary) hypertension Category: Medical Plan 38 yr old woman with HTN and elevated BMI of 41 with a h/o severe hypokalemia , hypomagnesemia and Hypocalcemia most likely secondary to alcohol use. She had alkalosis However, Plasma Aldosterone is NOT elevated and PA/PRA is only 3.03 , making hyperaldosteronism unlikely Suggest Abstain from alcohol Recheck Potassium, Magnesium, CAlcium and assess the need for supplementation Stay on low salt diet Needs weight loss Stay on current antihypertensives Orders: Orders Phosphorus Today E87.6 - Hypokalemia Magnesium Today E87.6 - Hypokalemia Basic Metabolic Panel Today E87.6 - Hypokalemia Medications: Refilled cyanocobalamin (vitamin B-12) (Vitamin B-12) 1,000 mcg PO DAILY 90 tabs 0RF folic acid 1 mg PO DAILY 90 tabs 0RF calcium carbonate-vitamin D3 250 mg-3.125 mcg (125 unit) 1 tab PO DAILY 90 tabs 0RF Discontinued magnesium oxide Discontinued Reason: Doctor's Order 800 mg (2 x 400 mg (241.3 mg magnesium)) PO DAILY 30 tabs 0RF potassium chloride ER Discontinued Reason: Doctor's Order 10 mEq PO DAILY 14 caps 0RF Coding Level of Care Code Est Pt Level 4 (58212) Diagnoses Hypokalemia E87.6 Hypocalcemia E83.51 Hypomagnesemia E83.42 HTN (hypertension) I10
[2024-04-12 13:40] VITALS: BP 130/84
== END 2024-04-12 13:40 | disposition home or self-care (01) ==
PROVIDERS: PCP Internal Medicine; Visit Provider Internal Medicine Hypertension Specialist
DX: E87.6 Hypokalemia (principal); E83.51 Hypocalcemia; E83.42 Hypomagnesemia; I10 Essential (primary) hypertension
CPT/HCPCS: 99214

== ENCOUNTER → 2024-04-12 13:11 | Outpatient (BNVA) | payer OTHER, SELFPAY | PROVIDERS: PCP Internal Medicine; Visit Provider Internal Medicine Hypertension Specialist | DX: E87.6 Hypokalemia (principal); E83.51 Hypocalcemia; E83.42 Hypomagnesemia; I10 Essential (primary) hypertension | CPT/HCPCS: 99212 ==

== ENCOUNTER 2024-06-07 10:53 | Outpatient (REF) | payer OTHER, SELFPAY ==
[2024-06-07 11:43] LABS: Hematocrit 37.2 % (37.0-47.0); Mean Corpuscular HGB Conc 32.3 g/dl (31.0-35.0); Mean Corpuscular Hemoglobin 30.3 pg (27.0-33.0); Mean Corpuscular Volume 93.9 fL (80.0-98.0); Mean Platelet Volume 10.3 fL (9.4-12.3); Platelet Count 409 X10*3/uL (160-400); Red Blood Count 3.96 X10*6/uL (4.20-5.50); Red Cell Distribution Width 15.6 % (11.0-16.0); White Blood Count 5.9 X10*3/uL (4.8-10.8)
[2024-06-07 12:13] LABS: Anion Gap 16 (12-20); Blood Urea Nitrogen 6 mg/dL (9-16); Calcium 9.9 mg/dL (8.4-10.2); Carbon Dioxide 24 mmol/L (22-29); Chloride 103 mmol/L (96-108); Estimated Glomerular Filt Rate > 60; Glucose Random 105 mg/dL (60-115); Potassium 4.1 mmol/L (3.3-5.1); Sodium 139 mmol/L (135-145)
[2024-06-07 12:18] LABS: Magnesium 1.4 mg/dL (1.6-2.6)
== END 2024-06-07 10:54 | disposition home or self-care (01) ==
LOC: HO.LAB 10:53
PROVIDERS: Internal Medicine; PCP Internal Medicine; Visit Provider Internal Medicine Hypertension Specialist
DX: E83.42 Hypomagnesemia (principal); E87.6 Hypokalemia; D53.9 Nutritional anemia, unspecified
CPT/HCPCS: 36415; 80048; 83735; 84100; 85027

== ENCOUNTER 2024-08-01 14:59 | Outpatient (REF) | payer OTHER, SELFPAY ==
[2024-08-01 15:19] LABS: MANUAL DIFF FLAG NO
[2024-08-01 15:54] LABS: Basophils Absolute Auto 0.1 X10*3/uL (0.0-0.2); Basophils Percent Auto 0.6 % (0-2); Eosinophils Absolute Auto 0.1 X10*3/uL (0.0-0.4); Eosinophils Percent Auto 1.1 % (0-4); Hematocrit 34.1 % (37.0-47.0); Hemoglobin 11.5 g/dl (12.0-16.0); Imm Gran Abs Auto 0.03 X10*3/uL (0.00-0.03); Imm Gran Pct Auto 0.4 % (0.0-0.4); Lymphocytes Absolute Auto 1.3 X10*3/uL (1.2-4.9); Lymphocytes Percent Auto 16.6 % (20-40); Mean Corpuscular HGB Conc 33.7 g/dl (31.0-35.0); Mean Corpuscular Hemoglobin 31.7 pg (27.0-33.0); Mean Corpuscular Volume 93.9 fL (80.0-98.0); Mean Platelet Volume 9.2 fL (9.4-12.3); Monocytes Absolute Auto 0.4 X10*3/uL (0.1-1.2); Monocytes Percent Auto 5.5 % (2-11); Neutrophils Percent Auto 75.8 % (45-73); Platelet Count 422 X10*3/uL (160-400); Red Blood Count 3.63 X10*6/uL (4.20-5.50); Red Cell Distribution Width 17.1 % (11.0-16.0)
[2024-08-01 16:19] LABS: Alanine Aminotransferase 12 U/L (0-31); Albumin Level 4.2 g/dL (3.5-5.0); Alkaline Phosphatase 69 U/L (39-117); Anion Gap 14 (12-20); Aspartate Amino Transferase 16 U/L (5-31); Blood Urea Nitrogen 7 mg/dL (9-16); Calcium 9.3 mg/dL (8.4-10.2); Carbon Dioxide 25 mmol/L (22-29); Chloride 104 mmol/L (96-108); Cholesterol 210 mg/dL (<200); Estimated Glomerular Filt Rate > 60; Glucose Random 107 mg/dL (60-115); HDL Cholesterol 33 mg/dL (>40); LDL Cholesterol Calculated 152 mg/dL (<100); Magnesium 1.8 mg/dL (1.6-2.6); Potassium 3.6 mmol/L (3.3-5.1); Sodium 139 mmol/L (135-145); Total Protein 7.7 g/dL (6.5-8.0); Triglycerides 129 mg/dL (<150)
[2024-08-01 16:40] LABS: Ferritin 195 ng/mL (10-122); Thyroid Stimulating Hormone 1.01 uIU/mL (0.32-4.0)
[2024-08-01 16:56] LABS: Vitamin B12 319 pg/mL (200-900)
[2024-08-04 16:13] LABS: TS Negative Control Passed; TS Panel A 0; TS Panel B 0; TS Positive Control Passed; TSpotTB Negative (Negative)
== END 2024-08-01 15:00 | disposition home or self-care (01) ==
LOC: HO.LAB 14:59
PROVIDERS: PCP Internal Medicine; Visit Provider Internal Medicine
DX: Z00.00 Encounter for general adult medical examination without abnormal findings (principal); E28.2 Polycystic ovarian syndrome; E78.2 Mixed hyperlipidemia; I10 Essential (primary) hypertension; R63.4 Abnormal weight loss; R73.01 Impaired fasting glucose
CPT/HCPCS: 36415; 80053; 80061; 82607; 82728; 83735; 84443; 85025; 86481

== ENCOUNTER 2024-10-29 23:15 | Inpatient (IN) | payer OTHER, SELFPAY ==
--- NOTE | 2024-10-29 | ECG_ITS ---
Test Reason : ABD PAIN Blood Pressure : / mmHG Vent. Rate : 086 BPM Atrial Rate : 086 BPM P-R Int : 152 ms QRS Dur : 088 ms QT Int : 426 ms P-R-T Axes : 032 008 007 degrees QTc Int : 509 ms Normal sinus rhythm Prolonged QT Abnormal ECG When compared with ECG of 14-MAR-2024 20:44, T wave inversion no longer evident in Anterolateral leads Referred By: Generic ED Physician Electronically Signed By:DESEAN JOLLY
--- NOTE | ~2024-10-29 | MR_ITS ---
. EXAMINATION: MRI abdomen MRCP. CLINICAL INFORMATION: Abdominal pain. Transaminitis. COMPARISON: Correlated to CT abdomen dated October 30, 2024. TECHNIQUE: Multiplanar, multisequence MRI abdomen without IV contrast and MRCP protocol: 3-D SPACE MRCP TRIGGERED. FINDINGS: Submitted for interpretation on November 02, 2024. Limited by patient's breathing motion artifact. Liver measures 20 cm. There is drop-off of signal during the in and out of phase sequences. No focal lesion. Portal veins, hepatic veins and intrahepatic portions of the IVC demonstrated normal flow void signal. Gallbladder is absent/cholecystectomy. Common bile duct measures 3 mm in maximal diameter. No gross intraluminal signal abnormality. Spleen measures 10 cm. Volume loss of the pancreatic parenchyma mostly at the head and uncinate process. No peripancreatic fluid collections. No main pancreatic ductal dilatation. No nodular lesions in the adrenal glands. No hydronephrosis in either kidney. 5 mm fluid signal characteristic lesion in the posterior cortical medullary junction midportion left kidney. Flow-void signal within the main vessels is normal. There is no aneurysm in the abdominal aorta. No ascites. No lymphadenopathy, retroperitoneal and or mesentery. Fat-containing umbilical hernia with diastases abdominal rectus muscles. MR/MR MRCP IMPRESSION: Hepatomegaly and likely steatosis. Status post cholecystectomy without intrahepatic or extrahepatic biliary ductal dilatation or gross choledocholithiasis. 5 mm cyst, left kidney. Electronically signed by: Richmond Casiano MD 11/02/2024 08:10 AM [facility]
--- NOTE | ~2024-10-29 | US_ITS ---
EXAMINATION: US ABDOMEN LIMITED CLINICAL INFORMATION: Assess common bile duct, rule out dilatation, elevated LFTs, status post cholecystectomy 10 years ago. COMPARISON: CT abdomen and pelvis of 10/30/2024. TECHNIQUE: Real-time imaging of the gallbladder fossa and common duct. Limited visualization due to bowel gas and body habitus. FINDINGS: The gallbladder is surgically absent. No focal fluid collection visualized in the gallbladder bed. Limited visualization due to bowel gas and body habitus. Imaged portion of the common duct measures 0.6 cm, although visualization limited. US/US abdomen limited IMPRESSION: 1. The gallbladder is surgically absent. No focal fluid collection visualized in the gallbladder bed. Limited visualization due to bowel gas and body habitus. 2. Imaged portion of the common duct measures 0.6 cm, although visualization limited. This study was presented today to October 30, 2024 for interpretation. Stat results provided at this time as requested by referring provider. Electronically signed by: Esperanza Elizabeth MD 10/30/2024 07:53 AM EST
--- NOTE | ~2024-10-29 | CT_ITS ---
EXAMINATION: CT ABDOMEN AND PELVIS WITH CONTRAST CLINICAL INFORMATION: Pain. COMPARISON: None available. TECHNIQUE: Multidetector volumetric images were obtained from the superior aspect of the liver through the pubic symphysis following administration 85 mL of Omnipaque 350 intravenous contrast. Sagittal and coronal reformatted images were obtained on the technologist's workstation. Oral contrast: No This CT examination was performed using dose optimization techniques as appropriate, variously including the following: *Automated exposure control *Adjustment of mA and/or kV according to patient size (this includes techniques or standardized protocols for targeted exams where dose is matched to indication/reason for exam; i.e. extremities or head) *Use of iterative reconstruction technique DLP: 863 mGy-cm FINDINGS: LUNG BASES: There is scarring and/or subsegmental atelectasis at the right lung base. LIVER, GALLBLADDER, AND BILIARY TREE: The liver is normal in size, shape, and attenuation. No focal hepatic lesion or biliary ductal dilatation is present. There has been a previous cholecystectomy. PANCREAS: There is infiltrative change along the pancreatic head and neck. SPLEEN: Unremarkable. ADRENAL GLANDS: Unremarkable. KIDNEYS AND URETERS: The kidneys are normal in size, shape, and attenuation. No hydronephrosis, hydroureter, or calculi seen. No perinephric stranding. BLADDER: Unremarkable. GASTROINTESTINAL TRACT: The small and large bowel are unremarkable. The appendix is not seen. ABDOMINAL WALL: There is a minimal umbilical hernia containing fat. LYMPH NODES: Normal. VASCULAR: Unremarkable. PELVIC VISCERA: Unremarkable. OSSEOUS STRUCTURES: Unremarkable. CT/CT abdomen pelvis w IV con IMPRESSION: 1. There is infiltrative change along the pancreatic head and neck, consistent with acute pancreatitis. 2. There has been a previous cholecystectomy. 3. There is scarring and/or subsegmental atelectasis at the right lung base. Fleischner guidelines were followed. Electronically signed by: Aguilar Betancourt MD 10/30/2024 03:50 AM [facility]
[2024-10-29 23:17] VITALS: BP 152/94; PULSE 96; RESP 18; TEMP 36.1; O2SAT 98; BMI 40.1
[2024-10-29 23:33] LABS: MANUAL DIFF FLAG NO
[2024-10-29 23:35] LABS: Basophils Percent Auto 0.6 % (0-2); Eosinophils Absolute Auto 0.1 X10*3/uL (0.0-0.4); Eosinophils Percent Auto 0.7 % (0-4); Hematocrit 32.8 % (37.0-47.0); Hemoglobin 11.4 g/dl (12.0-16.0); Imm Gran Abs Auto 0.02 X10*3/uL (0.00-0.03); Imm Gran Pct Auto 0.3 % (0.0-0.4); Lymphocytes Absolute Auto 1.4 X10*3/uL (1.2-4.9); Lymphocytes Percent Auto 19.4 % (20-40); Mean Corpuscular HGB Conc 34.8 g/dl (31.0-35.0); Mean Corpuscular Hemoglobin 32.7 pg (27.0-33.0); Mean Platelet Volume 8.6 fL (9.4-12.3); Monocytes Absolute Auto 0.3 X10*3/uL (0.1-1.2); Neutrophils Absolute Auto 5.3 x10*3/uL (2.0-8.3); Platelet Count 314 X10*3/uL (160-400); Red Blood Count 3.49 X10*6/uL (4.20-5.50); Red Cell Distribution Width 18.2 % (11.0-16.0); White Blood Count 7.1 X10*3/uL (4.8-10.8)
[2024-10-29 23:57] LABS: Alanine Aminotransferase 121 U/L (0-31); Albumin Level 3.9 g/dL (3.5-5.0); Alkaline Phosphatase 128 U/L (39-117); Anion Gap 14 (12-20); Aspartate Amino Transferase 127 U/L (5-31); Bilirubin Total 0.6 mg/dL (0.0-1.0); Blood Urea Nitrogen 6 mg/dL (9-16); Calcium 7.2 mg/dL (8.4-10.2); Carbon Dioxide 32 mmol/L (22-29); Chloride 95 mmol/L (96-108); Creatinine Clr Calc Pharmacy 122.9; Estimated Glomerular Filt Rate > 60; Glucose Random 94 mg/dL (60-115); Potassium 2.3 mmol/L (3.3-5.1); Sodium 139 mmol/L (135-145); Total Protein 7.3 g/dL (6.5-8.0)
--- NOTE | 2024-10-29 23:59 | ED.GENADULT ---
HPI - General Adult General Chief complaint: Abdominal Pain Stated complaint: stomach pain Time Seen by Provider: 10/29/24 23:59 History of Present Illness ED Provider: Roman KEY narrative: The patient is a 39-year-old female who presents to the emergency room with a about 2 days of abdominal pain that she indicates is primarily in the right upper quadrant. She says that it was somewhat intermittent yesterday but more continuous today. She says the pain radiates to her back. She has a history of a cholecystectomy about 10 years ago. She says that at the time that her gallbladder was removed she had not had any severe episodes of pain and she does not really remember them very well. She has had nausea but no vomiting. She has had some loose stools. No fever. Related Data Home Medications ?Medication ?Instructions ?Recorded ?Confirmed cyclobenzaprine 5 mg tablet 5 mg PO TID PRN Muscle Spasm 02/15/22 10/30/24 lorazepam 1 mg tablet 1 mg PO BID PRN Anxiety 03/15/24 10/30/24 quetiapine 25 mg tablet 25 mg PO DAILY PRN Anxiety 03/15/24 10/30/24 quetiapine 50 mg tablet 100 mg PO BEDTIME PRN Anxiety 03/15/24 10/30/24 duloxetine 60 mg capsule,delayed 60 mg PO DAILY 10/30/24 10/30/24 release Allergies Allergy/AdvReac Type Severity Reaction Status Date / Time banana [BANANA] Allergy Unknown STOMACH Verified 10/29/24 23:21 PAINS metformin [METFORMIN] Allergy Unknown NAUSEA, Verified 10/29/24 23:21 DIARRHEA, stomach upset milk [MILK] Allergy Unknown CAN NOT Verified 10/29/24 23:21 TOLERATE PMFSH Past Medical History Medical History (Updated 10/30/24 @ 06:10 by Lluvia Pavon PA-C) Anxiety Tetany WPW (Qspsg-Fciputizw-Mwbia syndrome) Abdominal pain Surgical History Hx of cholecystectomy Family History Family History Mother Cardiac abnormality Maternal Aunt Hx of breast cancer History of colon cancer History of ovarian cancer Social History Social History Household Members: None Household Members Other:: alone Housing: Apartment Do you presently have visiting nurse or other home services: No Alcohol intake: current Alcohol intake frequency: holidays/special occasions only Patient Tobacco Use Status: Never used Tobacco Smoked in Last 30 Days: No Use of substances other than those prescribed or required for medical reasons: No Substance Use Type: Marijuana Advance Directives: No Advance Directives Information Provided: Yes Do you have a plan to hurt others: No Plan Nutrition Risks: Acute nausea or vomiting x1 week Patient : No service: No Current occupational status: unemployed Gender identity: Female Physical Exam ED Vital Signs: Vital Signs - 24 hr 10/29/24 23:17 10/30/24 00:00 10/30/24 01:03 Temperature 97 F 97.8 F Pulse Rate 96 79 Respiratory Rate 18 16 18 Blood Pressure 152/94 H 139/63 Pulse Oximetry 98 99 Oxygen Delivery Method Room Air Room Air 10/30/24 04:00 Temperature 98.3 F Pulse Rate 81 Respiratory Rate 16 Blood Pressure 154/92 H Pulse Oximetry 99 Oxygen Delivery Method Room Air BMI result Body Mass Index 40.1 Const Other: The patient is awake, alert, pleasant, cooperative. She looks mildly uncomfortable. HENMT Other: Face is symmetrical. Mucous membranes moist. Eyes Other: Pupils are round equal, conjunctivae are clear, extraocular movements intact Neck Other: Moving her neck easily Resp Effort & Inspection: normal respiratory effort Auscultation: clear to auscultation bilaterally Cardio Rate: regular rate Rhythm: regular rhythm Heart sounds: S1 normal heart sound present and S2 normal heart sound present GI Other: The patient seemed to have significant tenderness in the right upper quadrant. Skin Other: Skin is dry and unremarkable Neuro Other: The patient is awake and alert with a normal mental status. Cranial nerves are grossly intact. She moves her extremities normally and appropriately. Extrem Other: No peripheral edema Medications Administered Generic Name Dose Route Start Last Admin Trade Name Freq PRN Reason Stop Dose Admin Enoxaparin Sodium 40 mg 10/30/24 06:00 10/30/24 06:32 Enoxaparin Sodium 40 Mg/0.4 Ml Syringe SUBCUT 40 mg Q24H JOHNATHAN Administration Thiamine HCl 100 mg/ Sodium 101 mls @ 202 mls/hr 10/30/24 05:55 10/30/24 07:43 Chloride IV Infused DAILY JOHNATHAN Infusion Lactated Ringer's 1,000 mls @ 100 mls/hr 10/30/24 06:00 10/30/24 06:26 Lr IVCONT 100 mls/hr .Q10H JOHNATHAN Administration Morphine Sulfate 4 mg 10/30/24 05:50 10/30/24 10:50 Morphine Sulfate 4 Mg/Ml Cartridge IVPUSH 4 mg Q4H PRN Administration Pain, Severe (Pain Scale 7-10) Protocol Sodium Chloride 3 ml 10/30/24 08:00 10/30/24 07:46 0.9 % Sodium Chloride Flush 3 Ml Syringe IVFLUSH Not Given QSHIFT JOHNATHAN Discontinued Medications Generic Name Dose Route Start Last Admin Trade Name Freq PRN Reason Stop Dose Admin Potassium Chloride/Sodium Chloride 40 meq in 1,000 mls @ 250 mls/hr 10/30/24 00:00 10/30/24 05:13 Kcl 40 Meq In 0.9 % Sodium Chl IV 10/30/24 03:59 Infused .Q4H JOHNATHAN Infusion Magnesium Sulfate 2 gm in 50 mls @ 150 mls/hr 10/30/24 01:03 10/30/24 01:45 Magnesium Sulfate/H2o IV 10/30/24 01:22 Infused ONCE ONE Infusion Potassium Chloride 10 meq in 100 mls @ 100 mls/hr 10/30/24 06:00 10/30/24 10:06 Potassium Chloride/H20 IV 10/30/24 09:59 100 mls/hr Q1H JOHNATHAN Administration Magnesium Sulfate 2 gm in 50 mls @ 25 mls/hr 10/30/24 06:11 10/30/24 10:07 Magnesium Sulfate/H2o IV 10/30/24 08:10 Infused ONCE ONE Infusion Iohexol 85 ml 10/30/24 01:20 10/30/24 01:21 Iohexol 350 Mg/Ml 100 Ml Infus..Btl IV 10/30/24 01:21 85 ml ONCE ONE Administration Morphine Sulfate 4 mg 10/30/24 00:40 10/30/24 01:03 Morphine Sulfate 4 Mg/Ml Cartridge IVPUSH 10/30/24 00:41 4 mg ONCE ONE Administration Protocol Morphine Sulfate 4 mg 10/30/24 05:16 10/30/24 05:25 Morphine Sulfate 4 Mg/Ml Cartridge IVPUSH 10/30/24 05:17 4 mg ONCE ONE Administration Protocol Ondansetron HCl 4 mg 10/30/24 00:40 10/30/24 01:03 Ondansetron Hcl 4 Mg/2 Ml Vial IVPUSH 10/30/24 00:41 4 mg ONCE ONE Administration Medical Decision Making Medical Decision Making [facility] Narrative: The patient is a pleasant 39-year-old woman who presents with 2 days of upper abdominal pain which seemed to be mostly in the right upper quadrant. She has a history of a cholecystectomy. She has some mild LFT abnormalities. A CT scan was done primarily to look for the possibility of something like choledocholithiasis or cholangitis. Somewhat surprisingly the patient had findings of pancreatitis on her CT scan. This was surprising because her lipase was normal. A CT scan did not find any abnormalities to the biliary tree. Given the finding of pancreatitis on CT scan the patient will be admitted to the hospitalist service for further care. Lab Data 10/29/24 23:30 10/30/24 04:46 Labs: Lab Results 10/29/24 10/30/24 Range/Units 23:30 04:46 WBC 7.1 (4.8-10.8) X10*3/uL RBC 3.49 L (4.20-5.50) X10*6/uL Hgb 11.4 L (12.0-16.0) g/dl Hct 32.8 L (37.0-47.0) % MCV 94.0 (80.0-98.0) fL MCH 32.7 (27.0-33.0) pg MCHC 34.8 (31.0-35.0) g/dl RDW 18.2 H (11.0-16.0) % Plt Count 314 D (160-400) X10*3/uL MPV 8.6 L (9.4-12.3) fL Immature Gran % (Auto) 0.3 (0.0-0.4) % Neut % (Auto) 75.0 H (45-73) % Lymph % (Auto) 19.4 L (20-40) % Glasscock % (Auto) 4.0 (2-11) % Eos % (Auto) 0.7 (0-4) % Baso % (Auto) 0.6 (0-2) % Lymph # (Auto) 1.4 (1.2-4.9) X10*3/uL Glasscock # (Auto) 0.3 (0.1-1.2) X10*3/uL Eos # (Auto) 0.1 (0.0-0.4) X10*3/uL Baso # (Auto) 0.0 (0.0-0.2) X10*3/uL Abs Immat Gran (auto) 0.02 (0.00-0.03) X10*3/uL Absolute Neuts (auto) 5.3 (2.0-8.3) x10*3/uL Absolute Nucleated RBC 0.000 (0.0-0.012) X10*3/uL Nucleated RBC % (auto) 0.0 (0.0-0.2) /100WBC Sodium 139 139 (135-145) mmol/L Potassium 2.3 L* D 3.3 D (3.3-5.1) mmol/L Chloride 95 L 99 (96-108) mmol/L Carbon Dioxide 32 H 28 (22-29) mmol/L Anion Gap 14 15 (12-20) BUN 6 L 5 L (9-16) mg/dL Creatinine 0.71 0.67 (0.5-1.4) mg/dL Estim Creat Clear Calc 122.9 130.2 Estimated GFR > 60 > 60 Random Glucose 94 98 (60-115) mg/dL Calcium 7.2 L D 6.6 L D (8.4-10.2) mg/dL Magnesium 0.9 L* 1.6 (1.6-2.6) mg/dL Total Bilirubin 0.6 (0.0-1.0) mg/dL AST 127 H (5-31) U/L ALT 121 H (0-31) U/L Alkaline Phosphatase 128 H (39-117) U/L Troponin I High Sens < 2.7 (<3.5-17.0) ng/L C-Reactive Protein 1.83 H (< or = 0.50) mg/dL Total Protein 7.3 (6.5-8.0) g/dL Albumin 3.9 (3.5-5.0) g/dL Triglycerides 236 H (<150) mg/dL Lipase 35 23 (8-78) U/L Beta HCG, Quant < 2 mIU/mL Ethyl Alcohol < 10 mg/dL Discharge Plan Discharge Clinical Impression: Acute pancreatitis, Hypomagnesemia, Hypokalemia Patient Disposition: Admitted As Inpatient
[2024-10-30] VITALS (9 sets, daily range): BP systolic 139–166; BP diastolic 63–103; PULSE 73–86; RESP 16–20; TEMP 35.9–37; O2SAT 95–99
[2024-10-30 00:01] LABS: Troponin-I High Sensitivity < 2.7 ng/L (<3.5-17.0)
--- NOTE | 2024-10-30 00:42 | PC.NURSE ---
pt from home, a&ox4, respirations even and unlabored. pt reporting onset of lower abdominal pain x3 days, pt reports nausea but denies vomiting and diarrhea. pt reports poor po intake at this time. pt denies sob/chest pain. 20G placed in right ac. awaiting medication to be brought to the ED.
[2024-10-30 00:58] LABS: C Reactive Protein 1.83 mg/dL (< or = 0.50)
[2024-10-30 01:00] LABS: Magnesium 0.9 mg/dL (1.6-2.6)
[2024-10-30] MEDS: Morphine Sulfate 4 MG/ML CARTRIDGE IVPUSH ×4 (01:03→20:25)
[2024-10-30] MEDS: KCl 40 mEq in 0.9 % Sodium Chl 40 MEQ/1,000 ML IV.SOLN 250 MEQ IV (01:03)
[2024-10-30] MEDS: ondansetron HCL 4 MG/2 ML VIAL IVPUSH ×2 (01:03→20:26)
[2024-10-30 01:06] LABS: HCG Quantitative < 2 mIU/mL
[2024-10-30 01:20] LABS: Ethanol < 10 mg/dL
[2024-10-30] MEDS: Magnesium Sulfate/H2O 2 GM/50 ML PIGGYBACK IV ×2 (01:20→07:38)
[2024-10-30] MEDS: iohexoL 350 MG/ML 100 ML INFUS..BTL 85 ML IV (01:21)
[2024-10-30 04:21] LABS: Lipase 35 U/L (8-78)
[2024-10-30 05:12] LABS: Anion Gap 15 (12-20); Blood Urea Nitrogen 5 mg/dL (9-16); Calcium 6.6 mg/dL (8.4-10.2); Carbon Dioxide 28 mmol/L (22-29); Chloride 99 mmol/L (96-108); Creatinine Clr Calc Pharmacy 130.2; Estimated Glomerular Filt Rate > 60; Glucose Random 98 mg/dL (60-115); Lipase 23 U/L (8-78); Magnesium 1.6 mg/dL (1.6-2.6); Potassium 3.3 mmol/L (3.3-5.1); Sodium 139 mmol/L (135-145)
[2024-10-30 05:34] LABS: Triglycerides 236 mg/dL (<150)
--- NOTE | 2024-10-30 05:52 | PM.IMHP ---
History of Present Illness Date of Service: 10/30/24 Attending physician on admission: Shante Donis Chief Complaint: RUQ pain Patient is a 39-year-old female with a past medical history significant for WPW, mild intermittent asthma and anxiety, presented to the ED with 2 days of right upper quadrant pain. She rated the pain a 9/10 sharp pain, now 7/10 after receiving morphine. Pain radiates to her back. Previously the pain was intermittent now constant. She has had nausea but no vomiting. She has also had loose stool and denies any fever or chills. She has a history of cholecystectomy and reports the pain feels similar. She also reports history of heavy alcohol use including binge drinking years ago but none recently. She reports that she has not been able to tolerate anything by mouth for 2 days, she tried drinking water yesterday could not tolerate it due to the pain. Her last bowel movement was yesterday and she describes it as a fatty stool. She denies any urinary symptoms including dysuria, urgency or frequency. Review of Systems Constitutional: Constitutional: Denies chills, Denies fatigue, Denies fever(s) and Denies headache(s) Eyes: Eyes: Denies change in vision ENT: Denies headache(s), Denies nasal congestion, Denies nasal discharge and Denies sore throat Cardiovascular: Cardiovascular: Denies chest pain, Denies syncope, Denies rapid heart rate, Denies leg edema and Denies dyspnea Respiratory: Respiratory: Denies chest congestion, Denies cough, Denies dyspnea and Denies wheezing Gastrointestinal: Gastrointestinal: Denies melena, Denies hematochezia, Denies constipation, Reports loose stools (fatty), Reports nausea and Denies vomiting Genitourinary: Genitourinary: Denies dysuria and Denies urinary urgency Musculoskeletal: Musculoskeletal: Denies muscle weakness Integumentary/Breasts: Skin/Breast: Denies rash Neurologic: Denies confusion, Denies syncope and Denies headache(s) Psychiatric: Psychiatric: Denies confusion Endocrine: Endocrine: Denies fatigue Hematologic/Lymphatic: Hematologic/Lymphatic: Denies easy bleeding Allergic/Immunologic: Allergic/Immunologic: Denies wheezing [facility] Medical History (Updated 10/30/24 @ 06:10 by Lluvia Pavon PA-C) Anxiety Tetany WPW (Aytog-Wuwktgzco-Jvlvn syndrome) Abdominal pain Functional capacity: independent ambulation Family History Mother Cardiac abnormality Maternal Aunt Hx of breast cancer History of colon cancer History of ovarian cancer Surgical History Hx of cholecystectomy Social History Household Members: None Household Members Other:: alone Housing: Apartment Do you presently have visiting nurse or other home services: No Alcohol intake: current Alcohol intake frequency: holidays/special occasions only Patient Tobacco Use Status: Never used Tobacco Smoked in Last 30 Days: No Use of substances other than those prescribed or required for medical reasons: No Substance Use Type: Marijuana Advance Directives: No Advance Directives Information Provided: Yes Do you have a plan to hurt others: No Plan Patient : No service: No Current occupational status: unemployed Gender identity: Female Narrative: occasional social etoh, hx of binge drinking years ago, hx of marijuana use, no tobacco Meds Allergies Allergy/AdvReac Type Severity Reaction Status Date / Time banana [BANANA] Allergy Unknown STOMACH Verified 10/29/24 23:21 PAINS metformin [METFORMIN] Allergy Unknown NAUSEA, Verified 10/29/24 23:21 DIARRHEA, stomach upset milk [MILK] Allergy Unknown CAN NOT Verified 10/29/24 23:21 TOLERATE Active Medications: Current Medications Acetaminophen (Acetaminophen 325 Mg Tablet) 650 mg PO Q6H PRN PRN Reason: Pain, Mild (Pain Scale 1-3), fever or headache Calcium Carbonate (Calcium Carbonate 750 Mg Tab.Chew) 750 mg PO Q4H PRN PRN Reason: Heartburn Enoxaparin Sodium (Enoxaparin Sodium 40 Mg/0.4 Ml Syringe) 40 mg SUBCUT Q24H [facility] Potassium Chloride (Potassium Chloride/H20) 10 meq in 100 mls @ 100 mls/hr IV Q1H [facility] Stop: 10/30/24 09:59 Thiamine HCl 100 mg/ Sodium (Chloride) 101 mls @ 202 mls/hr IV DAILY [facility] Magnesium Hydroxide (Milk Of Magnesia 30 Ml Oral.Susp) 30 ml PO DAILY PRN PRN Reason: Constipation Melatonin (Melatonin 3 Mg Tablet) 6 mg PO BEDTIME PRN PRN Reason: Insomnia Morphine Sulfate (Morphine Sulfate 4 Mg/Ml Cartridge) 4 mg IVPUSH Q4H PRN; Protocol PRN Reason: Pain, Severe (Pain Scale 7-10) Ondansetron HCl (Ondansetron Hcl 4 Mg/2 Ml Vial) 4 mg IVPUSH Q8H PRN PRN Reason: Nausea and Vomiting Sodium Chloride (0.9 % Sodium Chloride Flush 3 Ml Syringe) [facility] Medications ?Medication ?Instructions ?Recorded ?Confirmed ?Last Taken ?Type cyclobenzaprine 5 mg tablet 5 mg PO TID PRN Muscle Spasm 02/15/22 04/12/24 2 Days Ago History ~04/28/23 metoprolol succinate 100 mg 100 mg PO DAILY 02/15/22 04/12/24 03/14/24 History tablet,extended release 24 hr trazodone 50 mg tablet 50 mg PO BEDTIME PRN Insomnia 04/30/23 04/12/24 03/13/24 History duloxetine 30 mg capsule,delayed 90 mg PO DAILY@0900 03/15/24 04/12/24 03/14/24 History release lorazepam 1 mg tablet 1 mg PO DAILY PRN Anxiety 03/15/24 04/12/24 Unknown History quetiapine 25 mg tablet 25 mg PO BID PRN Anxiety 03/15/24 04/12/24 Unknown History quetiapine 50 mg tablet 50 mg PO BEDTIME PRN Anxiety 03/15/24 04/12/24 03/13/24 History Physical Exam Vital Signs and Narrative: Vital Signs: Last Vital Signs Temp 98.3 F 10/30/24 04:00 Pulse 81 10/30/24 04:00 Resp 16 10/30/24 04:00 BP 154/92 H 10/30/24 04:00 Pulse Ox 99 10/30/24 04:00 O2 Del Method Room Air 10/30/24 04:00 BMI result Body Mass Index 40.1 General: AOx3, no acute distress Resp: CTA bilaterally CVS: S1, S2, RRR GI: +BS, temder RUQ, no distention Skin: Warm, dry Neuro: Cranial nerves II-XII grossly intact bilaterally. Motor grossly intact bilaterally Extremities: No LE edema Psych: Appropriate affect Const: General: No confusion Orientation/consciousness: No confusion Neuro: General: No confusion Results Labs 10/29/24 23:30 10/30/24 04:46 Labs: Laboratory Results - last 24 hr 10/29/24 10/30/24 23:30 04:46 MCV 94.0 MCH 32.7 MCHC 34.8 RDW 18.2 H Plt Count 314 D MPV 8.6 L Immature Gran % (Auto) 0.3 Neut % (Auto) 75.0 H Lymph % (Auto) 19.4 L [place] % (Auto) 4.0 Eos % (Auto) 0.7 Baso % (Auto) 0.6 Lymph # (Auto) 1.4 [place] # (Auto) 0.3 Eos # (Auto) 0.1 Baso # (Auto) 0.0 Abs Immat Gran (auto) 0.02 Absolute Neuts (auto) 5.3 Absolute Nucleated RBC 0.000 Nucleated RBC % (auto) 0.0 Anion Gap 14 15 Estim Creat Clear Calc 122.9 130.2 Estimated GFR > 60 > 60 Random Glucose 94 98 Calcium 7.2 L D 6.6 L D Magnesium 0.9 L* 1.6 Total Bilirubin 0.6 AST 127 H ALT 121 H Alkaline Phosphatase 128 H Troponin I High Sens < 2.7 C-Reactive Protein 1.83 H Total Protein 7.3 Albumin 3.9 Triglycerides 236 H Lipase 35 23 Beta HCG, Quant < 2 Ethyl Alcohol < 10 Imaging Radiologist's Impressions: Impressions Abdomen/Pelvis CT 10/30/24 01:10 IMPRESSION: 1. There is infiltrative change along the pancreatic head and neck, consistent with acute pancreatitis. 2. There has been a previous cholecystectomy. 3. There is scarring and/or subsegmental atelectasis at the right lung base. Fleischner guidelines were followed. Electronically signed by: Aguilar Betancourt MD 10/30/2024 03:50 AM [facility] [place] Assessment and Plan (1) Acute pancreatitis: Status: Acute (2) Hypokalemia: Status: Acute (3) Hypomagnesemia: Status: Acute (4) Prolonged QT interval: Status: Acute (5) Obesity, morbid, BMI 40.0-49.9: Status: Chronic Plan Patient is a 39-year-old female with a past medical history significant for WPW, mild intermittent asthma and anxiety, presented to the ED with 2 days of right upper quadrant pain. History of cholecystectomy. Ddx: CBD stone, pancreatitis, colitis Acute pancreatitis - no leukocytosis, vital stable, no sign of infectious process or sepsis - AST 127, ALT 121, ALP 128, lipase 35 and 23 on repeat, CRP 1.83 - lipids mildly elevated - A/P CT with acute pancreatitis - troponin negative, EKG with prolonged QTC - RUQ US to assess CBD for dilation and r/o CBD stone, consider MRCP if + - NPO and transition to clear liquid diet when tolerated - LR 100ml/hr - monitor BMP, LFTs and CBC Hypokalemia/hypomagnesemia/prolonged QTC - K 2.3, 3.3 on repeat after 40 mEq IV - Mag 0.9, 1.6 on repeat after 2 g IV - give additional 40 mEq IV potassium and 2 g Mag - QTC corrected with above supplementation - monitor electrolytes WPW - EKG with NSR and prolonged QTC as above Mild intermittent asthma without acute exacerbation - albuterol as needed Anxiety - continue home meds once med rec done Obesity - BMI 40.1 - weight loss encouraged Full code VTE prophylaxis: Lovenox Patient with acute pancreatitis in intractable pain requiring admission for IV fluids and pain management for at least 2 midnights stay. Quality Stroke Does the patient have a stroke diagnosis?: No VTE Prior VTE?: No VTE Risk Level:: Medical - moderate - high VTE Device Contraindication: Treatment Not Indicated VTE Drug Contraindication: N/A - Med Ordered
--- NOTE | 2024-10-30 06:08 | PC.NURSE ---
pt off unit to U/S
[2024-10-30] MEDS: Lactated Ringers 1,000 ML 100 ML IVCONT ×2 (06:26→17:23)
[2024-10-30] MEDS: Enoxaparin Sodium 40 MG/0.4 ML SYRINGE SUBCUT (06:32)
[2024-10-30] MEDS: Thiamine HCL 100 MG in 0.9 % Sodium Chloride 100 ML 202 MG IV (06:32)
[2024-10-30] MEDS: Potassium Chloride/H20 10 MEQ/100 ML PIGGYBACK 100 MEQ IV ×4 (06:35→10:06)
--- NOTE | 2024-10-30 07:27 | PHA.MEDREC ---
Pharmacy Consult ? Medication Reconciliation Pharmacy has completed the medication reconciliation. Spoke with patient at bedside, she stated she takes cyclobenzaprine rarely prn, duloxetine is now 60mg, lorazepam is 1mg BID prn, and quetiepine she takes 100mg at bedtime and the 25mg once daily as needed. States her doctor stopped the vitamins, metoprolol ER, and trazodone. Last dose was yesterday or the day before .
--- NOTE | 2024-10-30 12:23 | PM.EVENT ---
Event Note Date of Service: 10/30/24 Event Note: 39-year-old female with a past medical history significant for WPW, mild intermittent asthma and anxiety, presented to the ED with 2 days of right upper quadrant pain. History of cholecystectomy. Ddx: CBD stone, pancreatitis, colitis Acute pancreatitis no leukocytosis, vital stable, no sign of infectious process or sepsis AST 127, ALT 121, ALP 128, lipase 35 and 23 on repeat, CRP 1.83 lipids mildly elevated A/P CT with acute pancreatitis RUQ US neg for CBD stone clear liquid diet LR 100ml/hr monitor BMP, LFTs and CBC Hypokalemia/hypomagnesemia/prolonged QTC K 2.3, 3.3 on repeat after 40 mEq IV Mag 0.9, 1.6 on repeat after 2 g IV give additional 40 mEq IV potassium and 2 g Mag QTC corrected with above supplementation monitor electrolytes WPW EKG with NSR and prolonged QTC initially but resolved with electrolyte repletion Mild intermittent asthma without acute exacerbation albuterol as needed Anxiety continue home meds Morbid Obesity BMI 40.1 weight loss encouraged Full code VTE prophylaxis: Lovenox Patient with acute pancreatitis in intractable pain requiring admission for IV fluids and pain management for at least 2 midnights stay. Time Spent With Patient Time: Total time managing care of this patient today ____ minutes.
--- NOTE | 2024-10-30 13:37 | MHC.CM.PN ---
pt lives alone had no servies prior to admissionn has own ride home dc plan home no service
--- NOTE | 2024-10-30 22:34 | PC.NURSE ---
pt ambulates to and from [place] independently. given morphine and zofran prn as requested for 710 abdominal pain and nausea. good relief. LR running at 100ml/hr. #20g iv LAC. call dowling within reach. pt waiting for bed up on M/S.
[2024-10-31 00:23] VITALS: BP 140/97; PULSE 80; RESP 16; TEMP 36.6; O2SAT 97
[2024-10-31] MEDS: Morphine Sulfate 4 MG/ML CARTRIDGE IVPUSH (02:47)
[2024-10-31] MEDS: Lactated Ringers 1,000 ML 100 ML IVCONT (02:47)
[2024-10-31 05:22] VITALS: BP 164/97; PULSE 86; RESP 16; TEMP 36.9; O2SAT 97
[2024-10-31 05:45] LABS: MANUAL DIFF FLAG NO
[2024-10-31 05:47] LABS: Basophils Percent Auto 0.4 % (0-2); Eosinophils Absolute Auto 0.2 X10*3/uL (0.0-0.4); Hematocrit 29.9 % (37.0-47.0); Hemoglobin 10.2 g/dl (12.0-16.0); Imm Gran Abs Auto 0.01 X10*3/uL (0.00-0.03); Imm Gran Pct Auto 0.2 % (0.0-0.4); Lymphocytes Absolute Auto 1.1 X10*3/uL (1.2-4.9); Lymphocytes Percent Auto 19.3 % (20-40); Mean Corpuscular HGB Conc 34.1 g/dl (31.0-35.0); Mean Corpuscular Hemoglobin 32.7 pg (27.0-33.0); Mean Corpuscular Volume 95.8 fL (80.0-98.0); Mean Platelet Volume 8.7 fL (9.4-12.3); Monocytes Absolute Auto 0.2 X10*3/uL (0.1-1.2); Monocytes Percent Auto 3.9 % (2-11); Neutrophils Absolute Auto 4.1 x10*3/uL (2.0-8.3); Neutrophils Percent Auto 73.2 % (45-73); Platelet Count 282 X10*3/uL (160-400); Red Blood Count 3.12 X10*6/uL (4.20-5.50); Red Cell Distribution Width 18.2 % (11.0-16.0); White Blood Count 5.6 X10*3/uL (4.8-10.8)
[2024-10-31 06:01] LABS: Anion Gap 13 (12-20); Blood Urea Nitrogen < 3 mg/dL (9-16); Carbon Dioxide 28 mmol/L (22-29); Chloride 102 mmol/L (96-108); Creatinine Clr Calc Pharmacy 136.3; Estimated Glomerular Filt Rate > 60; Glucose Random 94 mg/dL (60-115); Potassium 3.1 mmol/L (3.3-5.1); Sodium 140 mmol/L (135-145)
[2024-10-31 06:02] LABS: Alanine Aminotransferase 62 U/L (0-31); Albumin Level 3.4 g/dL (3.5-5.0); Alkaline Phosphatase 102 U/L (39-117); Aspartate Amino Transferase 46 U/L (5-31); Bilirubin Direct 0.2 mg/dL (0.0-0.5); Bilirubin Total 0.6 mg/dL (0.0-1.0); Total Protein 6.3 g/dL (6.5-8.0)
[2024-10-31] MEDS: Enoxaparin Sodium 40 MG/0.4 ML SYRINGE SUBCUT (07:39)
[2024-10-31] MEDS: Potassium Chloride ER 20 MEQ TAB.ER.PRT 40 MEQ PO (07:40)
--- NOTE | 2024-10-31 08:20 | HO.PM.IMPN ---
Subjective Subjective Date of Service: 10/31/24 Review of Systems Follow up abd pain still with some mild pain mild nausea no vomiting Physical Exam Vital Signs: Vital Signs: Last Vital Signs Temp 98.5 F 10/31/24 05:22 Pulse 86 10/31/24 05:22 Resp 16 10/31/24 05:22 BP 164/97 H 10/31/24 05:22 Pulse Ox 97 10/31/24 05:22 O2 Del Method Room Air 10/31/24 05:22 BMI result Body Mass Index 40.1 Appearing in no acute distress lung sounds are clear to auscultation heart regular rate rhythm, clear S1, S2 positive bowel sounds, abdomen is soft, nontender neuro patient is alert x3, no focal deficits Objective Data Active Medications Acetaminophen (Acetaminophen 325 Mg Tablet) 650 mg PO Q6H PRN PRN Reason: Pain, Mild (Pain Scale 1-3), fever or headache Calcium Carbonate (Calcium Carbonate 750 Mg Tab.Chew) 750 mg PO Q4H PRN PRN Reason: Heartburn Duloxetine HCl (Duloxetine Hcl 60 Mg Capsule.Dr) 60 mg PO DAILY [facility] Enoxaparin Sodium (Enoxaparin Sodium 40 Mg/0.4 Ml Syringe) 40 mg SUBCUT Q24H [facility] Last Admin: 10/31/24 07:39 Dose: 40 mg Documented By: EUGENIO Thiamine HCl 100 mg/ Sodium (Chloride) 101 mls @ 202 mls/hr IV DAILY [facility] Last Infusion: 10/30/24 07:43 Dose: Infused Documented By: PAM Lactated Ringer's (Lr) 1,000 mls @ 100 mls/hr IVCONT .Q10H [facility] Last Admin: 10/31/24 02:47 Dose: 100 mls/hr Documented By: YOSI Lorazepam (Lorazepam 1 Mg Tablet) 1 mg PO BID PRN PRN Reason: Anxiety Magnesium Hydroxide (Milk Of Magnesia 30 Ml Oral.Susp) 30 ml PO DAILY PRN PRN Reason: Constipation Melatonin (Melatonin 3 Mg Tablet) 6 mg PO BEDTIME PRN PRN Reason: Insomnia Morphine Sulfate (Morphine Sulfate 4 Mg/Ml Cartridge) 4 mg IVPUSH Q4H PRN; Protocol PRN Reason: Pain, Severe (Pain Scale 7-10) Last Admin: 10/31/24 02:47 Dose: 4 mg Documented By: YOSI Ondansetron HCl (Ondansetron Hcl 4 Mg/2 Ml Vial) 4 mg IVPUSH Q8H PRN PRN Reason: Nausea and Vomiting Last Admin: 10/30/24 20:26 Dose: 4 mg Documented By: YOSI Oxycodone HCl (Oxycodone Hcl Immed Release 5 Mg Tablet) 5 mg PO Q6H PRN PRN Reason: Pain, Moderate(Pain Scale 4-6) Quetiapine Fumarate (Quetiapine Fumarate 25 Mg Tablet) 25 mg PO DAILY PRN PRN Reason: Anxiety Quetiapine Fumarate (Quetiapine Fumarate 100 Mg Tablet) 100 mg PO BEDTIME PRN PRN Reason: Anxiety Sodium Chloride (0.9 % Sodium Chloride Flush 3 Ml Syringe) 3 ml IVFLUSH QSHIFT [facility] Last Admin: 10/31/24 01:17 Dose: Not Given Documented By: YOSI Non-Admin Reason: IV Running Labs 10/31/24 05:40 10/31/24 05:40 Labs: Laboratory Results - last 24 hr 10/31/24 05:40 MCV 95.8 MCH 32.7 MCHC 34.1 RDW 18.2 H Plt Count 282 MPV 8.7 L Immature Gran % (Auto) 0.2 Neut % (Auto) 73.2 H Lymph % (Auto) 19.3 L [place] % (Auto) 3.9 Eos % (Auto) 3.0 Baso % (Auto) 0.4 Lymph # (Auto) 1.1 L [place] # (Auto) 0.2 Eos # (Auto) 0.2 Baso # (Auto) 0.0 Abs Immat Gran (auto) 0.01 Absolute Neuts (auto) 4.1 Absolute Nucleated RBC 0.000 Nucleated RBC % (auto) 0.0 Anion Gap 13 Estim Creat Clear Calc 136.3 Estimated GFR > 60 Random Glucose 94 Calcium 7.0 L D Total Bilirubin 0.6 Direct Bilirubin 0.2 AST 46 H ALT 62 H Alkaline Phosphatase 102 Total Protein 6.3 L Albumin 3.4 L Assessment and Plan (1) Abdominal pain: Status: Acute Plan 39-year-old female with a past medical history significant for WPW, mild intermittent asthma and anxiety, presented to the ED with 2 days of right upper quadrant pain. History of cholecystectomy. Ddx: CBD stone, pancreatitis, colitis Acute pancreatitis no leukocytosis, vital stable, no sign of infectious process or sepsis AST 127, ALT 121, ALP 128, lipase 35 and 23 on repeat, CRP 1.83 lipids mildly elevated A/P CT with acute pancreatitis RUQ US neg for CBD stone NPO LR 100ml/hr monitor BMP, LFTs and CBC Plan for MRCP today Hypokalemia 3.1, replete Follow BMP Hypomagnesemia/prolonged QTC Mag 0.9, 1.6 on repeat after 2 g IV QTC corrected with above supplementation monitor electrolytes oral magnesium WPW EKG with NSR and prolonged QTC initially but resolved with electrolyte repletion Mild intermittent asthma without acute exacerbation albuterol as needed Anxiety continue home meds Morbid Obesity BMI 40.1 weight loss encouraged Full code VTE prophylaxis: Lovenox Patient with acute pancreatitis in intractable pain requiring admission for IV fluids and pain management for at least 2 midnights stay. Quality Stroke Does the patient have a stroke diagnosis?: No VTE Prior VTE?: No VTE Risk Level:: Medical - moderate - high VTE Device Contraindication: Treatment Not Indicated VTE Drug Contraindication: N/A - Med Ordered
[2024-10-31 09:08] VITALS: BP 174/97; PULSE 101; RESP 18; TEMP 35.9; O2SAT 95
[2024-10-31] MEDS: DULoxetine HCl 60 MG CAPSULE.DR PO (09:41)
[2024-10-31] MEDS: Magnesium Oxide 400 MG TABLET PO (09:42)
[2024-10-31] MEDS: Thiamine HCL 100 MG in 0.9 % Sodium Chloride 100 ML 202 MG IV (09:42)
[2024-10-31 10:10] VITALS: BP 174/110; PULSE 89
--- NOTE | 2024-10-31 11:36 | PC.NURSE ---
Patient nlood pressures have been elevated, last bp was 174/110. Contacted provider to notify, MD aware, no new orders
--- NOTE | 2024-10-31 11:42 | P.CDIM_ITS ---
PROVIDER RESPONSE TEXT: To clarify, the appropriate diagnosis supported by the clinical indicators: Hypocalcemia: present QUERY TEXT: PHYSICIAN'S DOCUMENTATION REQUEST Date of Query: 10/31/2024 05:41 AM EST Patient Name: Kendra Burch Admit Date: 10/30/2024 Dear Vijaya Rollins PHYSIOTHERAPY AIDE, A review of the medical record indicates additional documentation may be needed. Please review below and update the documentation accordingly. Clinical Indicators: LABS: calcium 7.2 6.6 L Based on the above, is there a diagnosis that correlates with these lab findings: Hypocalcemia resolved, possible, probable, suspected etc. Labs indicate a diagnosis of (please specify) Other (explain) Clinically unable to determine (explain) Thank you, Pao Paulino, CCS, CDIS Use of terms such as suspected, likely, concern for, or probable (associated with a specific diagnosi s that is being evaluated, monitored, or treated as if it exists) are acceptable and can be coded in the inpatient se tting, when documented at the time of discharge. Please use your independent medical judgment in providing your response. THIS QUERY IS PART OF THE PERMANENT MEDICAL RECORD
--- NOTE | 2024-10-31 11:50 | MHC.CM.PN ---
Addendum entered by Jeanne Medina RN 10/31/24 13:23: Patient left AMA. Original Note: PER MD ROUNDS PATIENT NOT MEDICALLY CLEARED FOR DC. CM WILL CONTINUE TO FOLLOW.
--- NOTE | 2024-10-31 12:49 | PM.DS ---
DS: Providers Provider Date of Service: 10/31/24 Date of admission: 10/30/24 05:50 Date of discharge: 10/31/24 Primary care physician: Radha Blum MD Consults: 10/30/24 15:47 Consult to Gastroenterology Routine Consulting Provider: [facility] [place] [facility] [place] [facility] Reason for consultation: pancreatitis? DS: Diagnosis Discharge Diagnosis (1) Abdominal pain: Status: Acute DS: Summary Hospital Course Hospital Course: History and physical as per admitting provider. Patient is a 39-year-old female with a past medical history significant for WPW, mild intermittent asthma and anxiety, presented to the ED with 2 days of right upper quadrant pain. She rated the pain a 9/10 sharp pain, now 7/10 after receiving morphine. Pain radiates to her back. Previously the pain was intermittent now constant. She has had nausea but no vomiting. She has also had loose stool and denies any fever or chills. She has a history of cholecystectomy and reports the pain feels similar. She also reports history of heavy alcohol use including binge drinking years ago but none recently. She reports that she has not been able to tolerate anything by mouth for 2 days, she tried drinking water yesterday could not tolerate it due to the pain. Her last bowel movement was yesterday and she describes it as a fatty stool. She denies any urinary symptoms including dysuria, urgency or frequency. The patient has decided to leave against medical advice prior to completing workup and treatment (MRCP taken but results pending) and patient stated that she did not want to wait any longer and felt like everything was taking to long. Of note patient was admitted less than 24 hours ago. She has normal mental status and adequate capacity to make medical decisions. The patient refuses hospital admission and wants to be discharged. The risks have been explained to the patient including worsening illness, chronic pain, permanent disability and even . The benefits of admission have also been explained including the availability of nurses, medical providers, close monitoring, IV medications, diagnostic imaging, treatments, etc.. The patient was able to understand and state the risks and benefits of hospital admission. The patient was given opportunities to ask questions prior to leaving. 39-year-old woman being treated for acute pancreatitis versus CBD stone. Right upper quadrant ultrasound was negative for CBD stone but she was seen evaluated by Gastroenterology who recommended MRCP. Lipase was mildly elevated and LFTs were also elevated. She was treated with IV fluids, clear liquid diet. Initially upon presentation she was noted to have prolonged QTC, hypomagnesemia and hypokalemia. All were treated and repleted and QTC corrected to normal. Of note she does have a history of WPW. Her potassium was mildly low today so she should continue 2 more days of potassium. Hypocalcemia. [place] Mild intermittent asthma. No acute exacerbation. Continue home medications Anxiety. Continue home medications Morbid obesity. Discussed importance of weight management as this may be contributing to worsening of other comorbidities Time Attestation Discharge Coordination Time (in mins): 30 Quality: Safe Use of Opioids Does Pt have an Active Cancer Diagnosis on the Problem List?: No Quality: Stroke Does the patient have a stroke diagnosis?: No Physical Exam Vital Signs: Vital Signs: Last Vital Signs Temp 96.6 F L 10/31/24 09:08 Pulse 89 10/31/24 10:10 Resp 18 10/31/24 09:08 BP 174/110 H 10/31/24 10:10 Pulse Ox 95 10/31/24 09:08 O2 Del Method Room Air 10/31/24 09:08 BMI result Body Mass Index 40.1 Declined, AMA DS: Data Data Completed and Pending Labs on day of discharge: Laboratory Results - last 24 hr 10/31/24 05:40 WBC 5.6 RBC 3.12 L Hgb 10.2 L Hct 29.9 L MCV 95.8 MCH 32.7 MCHC 34.1 RDW 18.2 H Plt Count 282 MPV 8.7 L Immature Gran % (Auto) 0.2 Neut % (Auto) 73.2 H Lymph % (Auto) 19.[address] [place] % (Auto) 3.9 Eos % (Auto) 3.0 Baso % (Auto) 0.4 Lymph # (Auto) 1.[address] [place] # (Auto) 0.2 Eos # (Auto) 0.2 Baso # (Auto) 0.0 Abs Immat Gran (auto) 0.01 Absolute Neuts (auto) 4.1 Absolute Nucleated RBC 0.000 Nucleated RBC % (auto) 0.0 Sodium 140 Potassium 3.1 L Chloride 102 Carbon Dioxide 28 Anion Gap 13 BUN < 3 L Creatinine 0.64 Estim Creat Clear Calc 136.3 Estimated GFR > 60 Random Glucose 94 Calcium 7.0 L D Total Bilirubin 0.6 Direct Bilirubin 0.2 AST 46 H ALT 62 H Alkaline Phosphatase 102 Total Protein 6.3 L Albumin 3.4 L Discharge Plan Discharge Anticipated Discharge Date/Time: 10/31/24 12:42 Patient Disposition: Left Against Medical Advice Discharge Diagnosis: Abdominal pain QTC prolongation Hypokalemia Hypomagnesemia Possible pancreatitis Referrals: Radha Blum MD [Primary Care Provider] - 1 Week Discharge Medications: New potassium chloride 20 mEq Tablet,Er Particles/Crystals 20 meq PO BID Qty: 4 0RF calcium carbonate [Oyster Shell Calcium 500] 500 mg calcium (1,250 mg) Tablet 500 mg PO DAILY Qty: 30 0RF Continued lorazepam 1 mg tablet 1 mg PO BID PRN (Reason: Anxiety) quetiapine 25 mg tablet 25 mg PO DAILY PRN (Reason: Anxiety) quetiapine 50 mg tablet 100 mg PO BEDTIME PRN (Reason: Anxiety) Rx Instructions: MAY REPEAT ONCE duloxetine 60 mg capsule,delayed release(DR/EC) 60 mg PO DAILY cyclobenzaprine 5 mg tablet 5 mg PO TID PRN (Reason: Muscle Spasm) Discharge Orders: Discharge Order (Routine); Ordered 10/31/24 Ordered By: Vijaya Rollins Diet: Advance to usual diet Activity on Discharge: As tolerated Print Language: Faroese Other Ambulatory Orders: Basic Metabolic Panel (Routine) Timeframe: 2 Days Facility: [facility] - Location: Laboratory Ordered By: Vijaya Rollins Magnesium (Routine) Timeframe: 2 Days Facility: [facility] - Location: Laboratory Ordered By: Vijaya Rollins Care Plan Goals: The patient has decided to leave against medical advice. She has normal mental status and adequate capacity to make medical decisions. The patient refuses hospital admission and wants to be discharged. The risks have been explained to the patient including worsening illness, chronic pain, permanent disability and even . The benefits of admission have also been explained including the availability of nurses, medical providers, close monitoring, IV medications, diagnostic imaging, treatments, etc.. The patient was able to understand and state the risks and benefits of hospital admission. The patient was given opportunities to ask questions prior to leaving. Health Concerns: Follow-up with your primary care provider. Return to the ER if you have increased pain, returning pain or worsening symptoms. You had an MRCP today however, you decided to leave before results were finalized. You can access the patient portal or contact your primary care provider for results of this test. Take potassium for 2 days Take calcium daily Plan of Treatment: Abdominal pain QTC prolongation Hypokalemia Hypomagnesemia Possible pancreatitis Assessment: See discharge summary Discharge Date/Time: 10/31/24 13:52
--- NOTE | 2024-10-31 15:02 | PM.GICN ---
History of Present Illness Data of Consult Service Date: 10/31/24 Requesting physician: Vijaya Rollins Primary Care Provider: Radha Blum MD HPI Reason for consult: abdominal pain 39-year-old female with a hx of WPW, mild intermittent asthma, cholecystectomy and anxiety, who I am seeing for abdominal pain Patient had sudden onset 9/10 RUQ and epigastric pain 2 d ago which radiated into the back and was associated with nausea but no vomiting and also worse with food. The pain made her restless and was coming in waves. She denies any fever or chills. She has no constipation or diarrhea and denies darlk urine, jaundice or pale stools. She got morphine which relived her pain. She feels much better now. \ and taking some PO diet. This pain was not similar to her prior gallbladder issues LABS: revealed abn LFT with raised ASt, ALT which are coming down, and chronic stable anemia Imaging: I requested the hospitalist get MRCP after US without any CBD diltn. Read pending but I did not see any filling defect. Review of Systems Review of Systems: Constitutional : No Weight loss, No Fever, No Chills ENT/Mouth : No sore throat, No Rhinorrhea Eyes: No Swelling, No Redness Cardiovascular : No Chest Pain, No SOB, No Edema Respiratory : No Cough, No Sputum, No Wheezing Gastrointestinal : see HPI Genitourinary : NO Dysuria, No Urinary Frequency, No Hematuria, No Urgency Musculoskeletal : No joint pain, No Myalgias, No Joint Swelling Skin : No Skin Lesions, No rash Neuro : No Weakness, No Numbness, No Dizziness, No Headache Psych : No Anxiety/Panic, No Depression Heme/Lymph: No Bruising, No Lymphadenopathy Endocrine : No Polyuria, No Polydipsia All other systems reviewed and are negative. [facility] Past Medical History Medical History (Updated 10/30/24 @ 06:10 by Lluvia Pavon PA-C) Anxiety Tetany WPW (Jhnck-Uuvjjigvv-Kjpxs syndrome) Abdominal pain Family History Family History Mother Cardiac abnormality Maternal Aunt Hx of breast cancer History of colon cancer History of ovarian cancer Surgical History Surgical History Hx of cholecystectomy Social History Social History Household Members: None Household Members Other:: alone Housing: Apartment Do you presently have visiting nurse or other home services: No Alcohol intake: current Alcohol intake frequency: holidays/special occasions only Patient Tobacco Use Status: Never used Tobacco Substance Use Type: Marijuana service: No Current occupational status: unemployed Gender identity: Female Meds Allergies Allergy/AdvReac Type Severity Reaction Status Date / Time banana [BANANA] Allergy Unknown STOMACH Verified 10/29/24 23:21 PAINS metformin [METFORMIN] Allergy Unknown NAUSEA, Verified 10/29/24 23:21 DIARRHEA, stomach upset milk [MILK] Allergy Unknown CAN NOT Verified 10/29/24 23:21 TOLERATE Home Medications ?Medication ?Instructions ?Recorded ?Confirmed ?Last Taken ?Type cyclobenzaprine 5 mg tablet 5 mg PO TID PRN Muscle Spasm 02/15/22 10/30/24 10/29/24 History lorazepam 1 mg tablet 1 mg PO BID PRN Anxiety 03/15/24 10/30/24 10/29/24 History quetiapine 25 mg tablet 25 mg PO DAILY PRN Anxiety 03/15/24 10/30/24 10/29/24 History quetiapine 50 mg tablet 100 mg PO BEDTIME PRN Anxiety 03/15/24 10/30/24 10/29/24 History duloxetine 60 mg capsule,delayed 60 mg PO DAILY 10/30/24 10/30/24 10/29/24 History release Physical Exam Vital Signs: Vital Signs: Last Vital Signs Temp 96.6 F L 10/31/24 09:08 Pulse 89 10/31/24 10:10 Resp 18 10/31/24 09:08 BP 174/110 H 10/31/24 10:10 Pulse Ox 95 10/31/24 09:08 O2 Del Method Room Air 10/31/24 09:08 BMI result Body Mass Index 40.1 EXAM: GENERAL: The patient is well developed and nontoxic. VITAL SIGNS:see workflow HEENT: Nonicteric sclerae, PERRLA, EOMI. Oropharynx clear. Moist mucous membranes. Conjunctivae appear well perfused. No thyroid mass. CHEST: Chest wall is nontender. HEART: Regular rate and rhythm without murmurs. LUNGS: Clear to auscultation bilaterally. ABDOMEN: Soft, positive bowel sounds, mildly tender RUQ, no organomegaly.no flank tenderness SKIN: No rash, no excessive bruising, petechiae, or purpura. NEUROLOGIC: Cranial nerves II-XII intact without motor/sensory deficit. Psych: normal affect Results Labs 10/31/24 05:40 10/31/24 05:40 Labs: Short CBC 10/31/24 Range/Units 05:40 WBC 5.6 (4.8-10.8) X10*3/uL Hgb 10.2 L (12.0-16.0) g/dl Hct 29.9 L (37.0-47.0) % Plt Count 282 (160-400) X10*3/uL BMP 10/31/24 05:40 Sodium 140 Potassium 3.1 L Chloride 102 Carbon Dioxide 28 BUN < 3 L Creatinine 0.64 Calcium 7.0 L D Liver Function 10/31/24 Range/Units 05:40 Total Bilirubin 0.6 (0.0-1.0) mg/dL Direct Bilirubin 0.2 (0.0-0.5) mg/dL AST 46 H (5-31) U/L ALT 62 H (0-31) U/L Alkaline Phosphatase 102 (39-117) U/L Albumin 3.4 L (3.5-5.0) g/dL Imaging MRI - abdomen: Attestation: I personally reviewed and interpreted this imaging study as follows: (T2 image without any filling defect ) Assessment and Plan (1) Abdominal pain: Status: Acute Plan 1/ Abdo pain with abn LFT may have passed a stone, or may have SOD type II, now much better PLAN: 1/ If doing better advance diet, and can f/u as o/p --if further attacks can offer ERCP vs trial of anti spasmodic like hyoscomine Procedures Date of Service Date of Service: 10/31/24
== END 2024-10-31 13:52 | disposition left against medical advice (07) | DRG 282 ==
LOC: HO.ED 10-30 04:55 → HO.EDOVER 10-30 05:58 → HO.S3 10-31 07:10
PROVIDERS: Physician Assistant; Admitting Provider Student in an Organized Health Care Education/Training Program; Emergency Provider Emergency Medicine; PCP Internal Medicine; Visit Provider Nurse Practitioner Acute Care
DX: K85.90 Acute pancreatitis without necrosis or infection, unspecified (principal); E83.51 Hypocalcemia; F41.9 Anxiety disorder, unspecified; E66.01 Morbid (severe) obesity due to excess calories; Z68.41 Body mass index [BMI] 40.0-44.9, adult; R94.31 Abnormal electrocardiogram [ECG] [EKG]; Z71.3 Dietary counseling and surveillance; I45.6 Pre-excitation syndrome; J45.20 Mild intermittent asthma, uncomplicated; E83.42 Hypomagnesemia; Z79.899 Other long term (current) drug therapy
CPT/HCPCS: 36415; 74177; 74181; 76705; 80048; 80053; 80076; 80307; 83690; 83735; 84478; 84484; 84702; 85025; 86140; 93005; 99285; J1650; J2270; J2405; J3411; J3475; J3480; J7120; Q9967

== ENCOUNTER → 2024-10-29 23:41 | Outpatient (BNV) | payer OTHER, SELFPAY | PROVIDERS: Admitting Provider Student in an Organized Health Care Education/Training Program; Emergency Provider Emergency Medicine; PCP Internal Medicine; Visit Provider Internal Medicine | DX: R10.9 Unspecified abdominal pain (principal) | CPT/HCPCS: 93010 ==

== ENCOUNTER 2024-10-30 05:50 | Outpatient (BNV) | payer OTHER, SELFPAY | END 2024-10-31 08:20 | PROVIDERS: Admitting Provider Student in an Organized Health Care Education/Training Program; Emergency Provider Emergency Medicine; PCP Internal Medicine; Visit Provider Radiology Diagnostic Radiology | DX: R10.9 Unspecified abdominal pain (principal) | CPT/HCPCS: 74181 ==

== ENCOUNTER → 2024-10-30 05:50 | Outpatient (BNV) | payer OTHER, SELFPAY | PROVIDERS: Admitting Provider Student in an Organized Health Care Education/Training Program; Emergency Provider Emergency Medicine; PCP Internal Medicine; Visit Provider Physician Assistant | DX: R10.9 Unspecified abdominal pain (principal) | CPT/HCPCS: 99239 ==

== ENCOUNTER → 2024-10-30 05:50 | Outpatient (BNV) | payer OTHER, SELFPAY | PROVIDERS: Admitting Provider Student in an Organized Health Care Education/Training Program; Emergency Provider Emergency Medicine; PCP Internal Medicine; Visit Provider Internal Medicine Gastroenterology | DX: R10.9 Unspecified abdominal pain (principal) | CPT/HCPCS: 99223 ==